=== PATIENT | female | born 1945 | race Caucasian/White ===

== ENCOUNTER → 2017-07-13 16:57 | Outpatient (CLI) | payer MEDICARE, SELFPAY ==
[2017-07-13 17:00] LABS: Bacteria 0 SEEN /hpf (None Seen); Mucous, Urine 0 SEEN /hpf (<or=2+); Squamous Epithelial Cells - UA 0 SEEN /hpf (5-10)
[2017-07-13 17:04] LABS: Color, Urine Yellow (Yellow); Glucose, Dipstick Normal (Normal); Ketone-Dipstick Negative (Negative); Leukocyte Esterase-Dipstick 100 /ul (Negative); Nitrite-Dipstick Negative (Negative); Occult Blood-Urine 150 /ul (Negative); Protein-Dipstick Negative (Negative); Urine Bilirubin Dipstick Negative (Negative); Urine Clarity Clear (Clear); Urine Urobilinogen Normal (Normal); Urine pH 6.5 (5.0 - 8.0)
[2017-07-13 17:15] LABS: Red Blood Cells-Urine 5-10 SEEN /hpf (0-5); White Blood Cells 0-5 SEEN /hpf (0-5)
== END ==
PROVIDERS: Visit Provider Nurse Practitioner Adult Health
DX: N39.8 Other specified disorders of urinary system (principal)
CPT/HCPCS: 81001

== ENCOUNTER 2017-09-28 14:46 | Emergency (ER) | payer MEDICARE, SELFPAY ==
[2017-09-28 14:47] VITALS: BP 108/94; PULSE 82; RESP 16; TEMP 36.6; O2SAT 95; BMI 37.2
[2017-09-28 15:00] VITALS: BP 115/78; PULSE 78; RESP 16; O2SAT 96
[2017-09-28 16:00] VITALS: BP 107/67; BP 110/53; PULSE 63; PULSE 81; RESP 16; RESP 18; O2SAT 98
[2017-09-28] MEDS: Morphine 4 MG/ML Syringe IV (16:01)
[2017-09-28] MEDS: 0.9% Normal Saline 1,000 ML 1000 ML IV (16:01)
--- NOTE | 2017-09-28 16:08 | ED.VISSUMM ---
- ER Visit Summary Date of Service: 09/28/17 Chief Complaint: Painful bedsores History of Present Illness: The patient is a 71 F who presents with pain over her decubitus ulcer area over her sacrum. This has been getting progressively worse. Patient has been taking oxycodone and ibuprofen with no improvement. Patient denies any fevers or chills. Patient states home health has been changing dressings on her ulcer. states that they have been packing the ulcer and covering it with dressings. Patient denies any nausea or vomiting. Patient states that the home health nurse today noted some drainage from the ulceration. Physical Examination: Vital signs are stable. Patient is afebrile. Patient is in no acute distress. Oral mucosa is pink but dry. Neck is supple. There is no JVD noted. Heart was regular rate and rhythm. Lungs are clear and equal bilaterally. There is good respiratory effort noted. Abdomen is soft. Bowel sounds are normal. There is no tenderness. Cranial nerves II through XII are intact. There are no focal motor or sensory deficits noted. The remaining physical exam is within normal limits. Test Results: CBC and metabolic profile were essentially within normal limits. Urinalysis does show evidence of urinary tract infection. Emergency Department Course and Treatment: Patient was given a dose of morphine here. Patient felt better on reevaluation and wants to go home. Patient was given a prescription for Bactrim. Patient was instructed to follow-up with her primary care physician in 5-7 days. Patient and her understood and were agreeable with the plan. All questions were answered. Disposition: Discharged home Impression: Urinary tract infection, decubitus ulcer This note was generated with [employer] dictation software. It may contain incorrect words, spelling, and punctuation that were not noted in review of the chart prior to signing ED Disposition - Plan for ED Patient: Disposition: Home or Assisted Living Chief Complaint: Other, Pain/Inj Diagnosis: UTI (urinary tract infection), Decubitus ulcer Instructions: ED Chronic Pain Management, ED UTI Cystitis Female Prescriptions: Smz/Tmp Ds [Bactrim Ds] 1 tab PO BID #14 tab Referrals: Care Physician,No Primary [Primary Care Provider] -
[2017-09-28 16:11] LABS: Absolute Lymphocyte Count 0.91 X10^3/ul (0.83-4.51); Basophil# 0.01 X10^3/uL; Basophil% 0.1 % (0-1); Eosinophil# 0.09 X10^3/uL; Eosinophils% 1.1 % (0-5); Hematocrit 32.1 % (37-47); Hemoglobin 9.7 g/dl (12.0-15.0); Lymphocyte # 0.91 X10^3/ul (4.0); Lymphocyte % 10.7 % (19-41); Mean Corp Hgb Conc 30.2 g/gl (32-36); Mean Corpuscular Hgb 29.1 pg (27.0-32.0); Mean Corpuscular Volume 96.4 fL (81-99); Mean Platelet Vol. 10.6 fl (6.2-12.0); Monocyte# 0.44 X10^3/uL; Monocyte% 5.2 % (0-10); Neutrophil # 7.03 X10^3/uL (2.7-7.7); Neutrophil % 82.8 % (47-70); Platelet Count 147 K/mm3 (150-450); RBC Distribution Width SD 49.2 fl (35.1-43.9); Red Blood Count 3.33 M/mm3 (4.2-5.4); White Blood Count 8.5 K/mm3 (4.4-11.0)
[2017-09-28 16:13] LABS: Mucous, Urine 0 SEEN /hpf (<or=2+)
[2017-09-28 16:15] LABS: POSITIVE COUNT NO; POSITIVE DIFFERENTIAL NO; POSITIVE MORPHOLOGY NO
[2017-09-28 16:15] LABS: Color, Urine Yellow (Yellow); Glucose, Dipstick Normal (Normal); Ketone-Dipstick Negative (Negative); Leukocyte Esterase-Dipstick 500 /ul (Negative); Nitrite-Dipstick Positive (Negative); Occult Blood-Urine 150 /ul (Negative); Protein-Dipstick 30 mg/dl (Negative); Urine Bilirubin Dipstick Negative (Negative); Urine Clarity Cloudy (Clear); Urine Urobilinogen Normal (Normal)
[2017-09-28 16:29] LABS: Red Blood Cells-Urine 0-5 SEEN /hpf (0-5); Squamous Epithelial Cells - UA 0-5 SEEN /hpf (5-10); White Blood Cells >100 SEEN /hpf (0-5)
[2017-09-28 16:30] LABS: Amorphous Sediment 1+; Bacteria 4+ /hpf (None Seen)
[2017-09-28 16:57] LABS: ALB/GLOB Ratio 0.3 RATIO (0.9-2.4); AST(SGOT) 15 U/L (15-37); Alanine Aminotransfer ALT/SGPT 14 U/L (13-56); Albumin, Serum 1.4 g/dL (3.2-5.0); Alkaline Phosphatase 108 U/L (45-117); Anion Gap 7 (5-15); BUN 28 mg/dL (7-18); BUN/Creat Ratio 19.2 RATIO (10-20); Calcium,Total 7.1 mg/dL (8.5-10.1); Chloride 104 mmol/L (98-107); Creatinine, Serum 1.46 mg/dL (0.55-1.02); EST Glomerular Filtration Rate 37 mL/min (>60); Est Glom Filt Rate - Afr Amer 45 mL/min (>60); Estimated Creatinine Clearance 27.55 ml/min; Globulin 4.5 g/dL (2.2-4.2); Glucose 142 mg/dL (74-106); Potassium 3.1 mmol/L (3.5-5.1); Protein, Total 5.9 g/dL (6.4-8.2); Sodium Level 144 mmol/L (136-145)
[2017-09-28] MEDS: Smz/Tmp Ds Tablet 1 TABLET PO (17:55)
[2017-09-28 18:00] VITALS: BP 103/53; PULSE 69; RESP 16; O2SAT 95
== END 2017-09-28 18:05 | disposition home or self-care (01) ==
PROVIDERS: Emergency Provider Emergency Medicine
DX: N39.0 Urinary tract infection, site not specified (principal); L89.159 Pressure ulcer of sacral region, unspecified stage; M79.7 Fibromyalgia; E11.9 Type 2 diabetes mellitus without complications
CPT/HCPCS: 80053; 81001; 85025; 87077; 87086; 87088; 87186; 99284; J7030; A4216

== ENCOUNTER 2017-10-04 13:12 | Inpatient (IN) | payer MEDICARE, SELFPAY ==
[2017-10-04] VITALS (8 sets, daily range): BP systolic 96–115; BP diastolic 43–100; PULSE 61–68; RESP 13–19; TEMP 36.5–36.6; O2SAT 95–98; BMI 35.9; BMI 33.8
--- NOTE | 2017-10-04 14:06 | NURSING ---
CBCD TOO SHORT. NEEDS REDRAWN
--- NOTE | 2017-10-04 14:28 | CM.ED ---
Addendum entered by June Oropeza 10/04/17 15:26: Social Work Note Return phone call from [place] with [facility]PS stating that they do have an open case as of today. Inquires about pt and spouse's demeanors/presentations. Made aware that SW on assigned unit will notify APS of disposition at discharge. VENTURA Wilson, HOSPICE CLINICAL SUPERVISOR Original Note: Social Work Note Update by nursing and physician that pt was recently in for a stage II wound last week that is now a stage IV. Pt to be admitted. Concerns with the pt's spouse's ability to care for pt at home. Pt has [facility] that has tried teachings with the spouse and he does not follow the suggestions and they do not feel that he can manage her care either. They report that APS is involved. Placed call to APS and left a vm with [place] to see where they are with the case. Will await a return phone call. Placed call to [facility] and spoke with pt's casey saw operator, Milton Dempsey [[phone]], who states that the pt has been approved for 40 hrs/week of aides, but they cannot staff it and she presently is only getting 12 hrs/week through [facility]. She also gets skilled services through [facility]. Also has an emergency response system, 10 meals/week through [employer], and incontinence products. Inform that the pt will be admitted and SW on assigned unit will update with discharge plans once confirmed. VENTURA Wilson, HOSPICE CLINICAL SUPERVISOR
--- NOTE | 2017-10-04 14:57 | ED.RN ---
pt states pt has not eaten for 23 hours. this rn asked . states well we have had people in and out. reminded that he is the one that knows wether she has or has not eaten. states i offered her food but she did not want anything.this rn questioned ,as to blood sugar, states i checked her sugar this am and it was 89. then states I went ahead and gave her her insulin but she did not eat. pt blood sugar check. result 40. dr cain
[2017-10-04 14:58] LABS: ALB/GLOB Ratio 0.3 RATIO (0.9-2.4); AST(SGOT) 20 U/L (15-37); Alanine Aminotransfer ALT/SGPT 15 U/L (13-56); Albumin, Serum 1.2 g/dL (3.2-5.0); Alkaline Phosphatase 119 U/L (45-117); Anion Gap 7 (5-15); BUN 29 mg/dL (7-18); BUN/Creat Ratio 18.4 RATIO (10-20); Calcium,Total 7.2 mg/dL (8.5-10.1); Chloride 110 mmol/L (98-107); Creatinine, Serum 1.58 mg/dL (0.55-1.02); EST Glomerular Filtration Rate 34 mL/min (>60); Est Glom Filt Rate - Afr Amer 41 mL/min (>60); Estimated Creatinine Clearance 27.79 ml/min; Globulin 4.7 g/dL (2.2-4.2); Glucose 42 mg/dL (74-106); Potassium 3.4 mmol/L (3.5-5.1); Protein, Total 5.9 g/dL (6.4-8.2); Sodium Level 143 mmol/L (136-145)
[2017-10-04 15:13] LABS: Absolute Lymphocyte Count 0.87 X10^3/ul (0.83-4.51); Absolute Neutrophil Count 6.5 X10^3/uL (2.0-7.7); Basophil# 0.02 X10^3/uL; Basophil% 0.2 % (0-1); Eosinophil# 0.13 X10^3/uL; Eosinophils% 1.6 % (0-5); Hematocrit 31.5 % (37-47); Hemoglobin 9.7 g/dl (12.0-15.0); Lymphocyte # 0.87 X10^3/ul (4.0); Lymphocyte % 10.8 % (19-41); Mean Corp Hgb Conc 30.8 g/gl (32-36); Mean Corpuscular Volume 97.5 fL (81-99); Mean Platelet Vol. 10.6 fl (6.2-12.0); Monocyte# 0.47 X10^3/uL; Monocyte% 5.8 % (0-10); Neutrophil # 6.53 X10^3/uL (2.7-7.7); Neutrophil % 81.2 % (47-70); POSITIVE COUNT NO; POSITIVE DIFFERENTIAL NO; POSITIVE MORPHOLOGY NO; Platelet Count 132 K/mm3 (150-450); RBC Distribution Width SD 47.4 fl (35.1-43.9); Red Blood Count 3.23 M/mm3 (4.2-5.4); White Blood Count 8.1 K/mm3 (4.4-11.0)
[2017-10-04] MEDS: Dextrose 10%-Water 250 ML 75 ML IV (15:36)
--- NOTE | 2017-10-04 15:45 | ED.VISSUMM ---
- ER Visit Summary Date of Service: 10/04/17 Chief Complaint: Failure to thrive History of Present Illness: The patient is a 71 F who presents from home by ambulance. She has not been able to ambulate for 1 year. The nurse practitioner who is responsible for primary care states there is no known etiology for her inability to walk. She has total Jeromy dependent on others for care. blames visiting nurse for failure to show in care for . Nurse practitioner called prior. has not followed medical recommendations. He has been giving her insulin spite of hypoglycemia. He has not been feeding her because he does not want to clean up her stool. While in the department he was verbally abusive towards his . She had a stage II lumbar/sacral decubitus that has now become a stage IV. She also has pressure sore with skin breakdown in the perianal/gluteal crease region. She really has no complaints. History of type 1 diabetes, hypertension, end-stage renal disease, frequent urinary tract infections, obesity, functional paralysis and pancytopenia. Physical Examination: Vital signs are unremarkable. She is not febrile nor she hypoxic. Head is atraumatic normal cephalic. Pupils equal round reactive. Extra muscle intact. Sclerae nonicteric. Conjunctive is normal. There is no subconjunctival hemorrhage. TMs normal. Mucosa slightly dry. Trachea midline. Lungs are clear auscultation. Heart is regular. Abdomen soft nontender. Grade 4 lumbar decubitus 3 x 5 cm. Pressure sore skin breakdown gluteal crease/perianal region. Patient moves her arms. Minimal movement of legs. She does have sensation. There is no clonus or Babinski sign noted. Test Results: CBC is unremarkable. CMP is remarkable for a total protein of 5.9 albumin of 1.2. Creatinine is 1.58. Glucose 42. Patient had recurrent hypoglycemia in spite of medication and feeding the patient. She was placed on a D10 drip at 75 cc/h. Urinalysis is pending. Emergency Department Course and Treatment: Case management was consulted. I was informed by his nurse practitioner that Adult Protective Services been involved. When was told Adult Protective Services were involved he responded I was ass holes . Treatment Plan: We will contact hospitalist for admission, case management involvement and placement since she is not able to care for self and is not able to care for her. Her laboratory studies indicate significant malnourishment Disposition: Medical surge admission Impression: 1. Failure to thrive 2. Severe malnourishment 3. Grade 4 lumbar decubitus 4. Recurrent intractable hypoglycemia 5. History of hypertension 6. End-stage renal disease This note was generated with [employer] dictation software. It may contain incorrect words, spelling, and punctuation that were not noted in review of the chart prior to signing ED Disposition - Plan for ED Patient: Chief Complaint: Wound Referrals: Anyi Zamora, SQL DEVELOPER-C [Primary Care Provider] -
[2017-10-04 16:04] LABS: Mucous, Urine 0 SEEN /hpf (<or=2+)
[2017-10-04 16:06] LABS: Color, Urine Yellow (Yellow); Glucose, Dipstick Normal (Normal); Ketone-Dipstick Negative (Negative); Leukocyte Esterase-Dipstick 500 /ul (Negative); Nitrite-Dipstick Positive (Negative); Occult Blood-Urine 150 /ul (Negative); Protein-Dipstick 30 mg/dl (Negative); Specific Gravity, Urine 1.015 (1.002-1.030); Urine Bilirubin Dipstick Negative (Negative); Urine Clarity Sl. Cloudy (Clear); Urine Urobilinogen Normal (Normal)
[2017-10-04 16:21] LABS: Bacteria 1+ /hpf (None Seen); Red Blood Cells-Urine 10-25 SEEN /hpf (0-5); Squamous Epithelial Cells - UA 5-10 SEEN /hpf (5-10); White Blood Cells >100 SEEN /hpf (0-5)
--- NOTE | 2017-10-04 16:27 | NURSING ---
Maya FLOWER INTRACTABLE HYPOGLYCEMIA, FAILURE TO THRIVE, SEVERE MALNOURISHMENT
[2017-10-04 17:06] LABS: Bedside Glucose 129 mg/dL (70-110)
[2017-10-04 17:06] LABS: Bedside Glucose 40 mg/dL (70-110)
[2017-10-04 17:06] LABS: Bedside Glucose 57 mg/dL (70-110)
--- NOTE | 2017-10-04 17:15 | PCM.HP.STD ---
Problem List (1) Hypoglycemia Status: Acute (2) Decubitus ulcer Status: Acute Qualifiers: Pressure injury location: contiguous region involving back and buttock Pressure injury stage: stage 4 Laterality: unspecified laterality Qualified Code(s): L89.44 - Pressure ulcer of contiguous site of back, buttock and hip, stage 4 (3) UTI (urinary tract infection) Status: Acute Qualifiers: Urinary tract infection type: acute cystitis Hematuria presence: without hematuria Qualified Code(s): N30.00 - Acute cystitis without hematuria (4) Debility Status: Acute History of Present Illness Date of Admission: 10/04/17 Chief Complaint: decubitus ulcer The patient is a 71 year old F with a decubitus ulcer. Patient's history is obtained primarily through her as well as session. Patient's states that she has had a pressure ulcer on her backside for some time and just recently had gotten worse. He decided to bring the patient into the emergency room. In the emergency room, patient was noted to be hypoglycemic with a blood sugar on her BMP of 48. Patient was started on a D10 drip. Subsequent blood sugars did improve into the 130s. Patient's states that she would have hypoglycemic episodes at home with her blood sugar being into the 50s but he would still give her her Lantus but only after he gave her juice. He states the patient has not been eating much. Patient was recently diagnosed with a urinary tract faction and treated with Bactrim. [] Past Medical History Past Medical History (Chronic Problems): Chronic Problems Dysphagia (Chronic) CKD (chronic kidney disease), stage III (Chronic) DM type 2 (diabetes mellitus, type 2) (Chronic) Gout (Chronic) Morbid obesity (Chronic) Psoriasis (Chronic) Rosacea (Chronic) CAD (coronary artery disease) (Chronic) Fibromyalgia (Chronic) Spastic paraparesis (Chronic) Skin excoriation (Chronic) secondary to fungal skin infection UTI (urinary tract infection) (Chronic) Candidal intertrigo (Chronic) Decubitus ulcer (Chronic) Allergies cephalexin [From Keflex] Allergy (Verified 10/04/17 13:13) Rash Penicillins Allergy (Verified 10/04/17 13:13) Rash Home Medications: Ambulatory Orders Medication Instructions Recorded Levothyroxine [Synthroid] 88 mcg PO DAILY 01/21/16 Hydrocodone/Acetaminophen 1 tab PO Q8H PRN PRN 11/22/16 [Hydrocodone-Acetamin 7.5-325] Nystatin Powder [Mycostatin Powder] 1 applic TOPICAL .COMPLEX 11/22/16 traZODone [Desyrel] 100 mg PO QHS PRN 11/22/16 Amino Acids/Protein Hydrolys 30 ml PO BID 09/28/17 [Pro-Stat Max Liquid] Aspirin [Aspirin EC] 81 mg PO DAILY 09/28/17 Atorvastatin Calcium 10 mg PO QHS 09/28/17 Citalopram Hydrobromide 40 mg PO DAILY 09/28/17 [Citalopram HBr] DiphenhydrAMINE [Benadryl] 25 mg PO Q6H PRN PRN 09/28/17 Diphenoxylate HCl/Atropine 2 tab PO Q6H PRN PRN 09/28/17 [Lomotil 2.5-0.025 mg Tablet] Ergocalciferol [Vitamin D] 50,000 unit PO MO 09/28/17 Furosemide [Lasix] 40 mg PO DAILY 09/28/17 Gabapentin [Neurontin] 300 mg PO BIDCM 09/28/17 Ibuprofen 800 mg PO PRN PRN 09/28/17 Insulin Glargine [Lantus SoloStar 28 units SQ DAILY 09/28/17 Pen] Menthol/Lanolin/Calamine/Znox 1 applic TOPICAL .COMPLEX 09/28/17 [Calmoseptine Ointment] Multivitamins,Therapeutic 1 tablet PO DAILY 09/28/17 [Multivitamin] Smz/Tmp Ds [Bactrim Ds] 1 tab PO BID #14 tab 09/28/17 Zinc Sulfate (50mg elemental) 220 mg PO DAILY 09/28/17 [Zinc Sulfate] Surgical History: cholecystectomy, hysterectomy Smoking Status: Former smoker - *Family History Maternal History Items: Unknown - Unable to obtain as the patient is a very poor historian. Paternal History Items: No pertinent history Review of Systems Constitutional: Reports: Anorexia. Denies: Chills, Fever Eyes: Denies: Blurred vision, Double vision HEENT: Denies: Difficulty Hearing Cardiovascular: Denies: Chest Pain, Chest Tightness Respiratory: Denies: Cough Gastrointestinal: Denies: Abdominal Pain, Nausea, Vomiting Genitourinary: Denies: Dysuria, Hematuria Musculoskeletal: Reports: Back Pain Neurological: Reports: - - Bedbound. Functional paraplegic. Psychiatric: Denies: Anxiety, Depression Hematologic/ Lymphatic: Reports: Easy Bleeding Comment: Limited review of systems given the fact the patient is a very poor historian and much of the review of systems obtained to the patient's at bedside. VTE Information - Inpt Only VTE Present on Admission: No VTE Pharm Prophylaxis ordered?: Yes Patient Problems: Active and Suspected Problems Hypoglycemia (Acute) Decubitus ulcer (Acute) UTI (urinary tract infection) (Acute) Debility (Acute) - Physical Exam General: Alert, No apparent distress, - - Oriented ?2 HEENT: Atraumatic, Normocephalic Oral: Moist Mucosa, No Gingival or Mucosal Lesions/ Ulcerations Neck: No Nodes, Thyroid Normal Size and Texture Lungs: Clear to auscultation, No rhonchi, No wheeze, Diminished Cardiovascular: Regular rate, Regular Rhythm, Normal S1, Normal S2, No murmurs Abdomen: Bowel Sounds Present, Soft, Non Tender, Non-Distended, No Hepato-splenomegaly Extremities: No edema, No Calf Tenderness Skin: - - Stage III-IV sacral decubitus ulcer. Proximally 5 cm in diameter. No purulence was noted. Musculoskeletal: Cachexia, Muscle Wasting, - - Plantar contractions of the lower extremities Neurological: Sensory exam intact to light touch and pain, - - No clonus Psych/Mental Status: Anxious, Flat Affect Vital Signs Pulse Resp BP Pulse Ox 65 19 H 115/100 H 97 10/04/17 16:38 10/04/17 16:38 10/04/17 16:38 10/04/17 16:38 Assessment/Plan All Active Problems Hypoglycemia (Acute) Decubitus ulcer (Acute) UTI (urinary tract infection) (Acute) Debility (Acute) Hypoglycemia (Acute) Acute on Recurrent UTI (Acute) Chest pain (Resolved) Neutropenic fever (Resolved) Generalized weakness (Acute) Hypotension (Resolved) Pancytopenia (Resolved) 1. Hypoglycemia Secondary to getting insulin despite his poor oral intake I have requested the D10 being stopped and we will continue to monitor Hold off on the Lantus for now 2. Stage III-IV decubitus ulcer, sacrum Wound care consultation Likely due to poor care at home 3. UTI Catheter associated diagnosed on 09/28 Positive Citrobacter as well as Klebsiella pneumoniae Was on Bactrim but the organisms are resistant to that Will change to ceftriaxone 4. Debility Patient is a functional paraplegic and essentially bedbound Physical and occupational therapy evaluate and treat Apparently there is concern about the patient's care at home and Adult Protective Services has been informed through the emergency room. 5. Candidiasis/intertrigo Nystatin 6. Diabetes mellitus type 2 We will check micro-blood sugars but hold off on any insulin at this point time given the patient's hypoglycemia 7. DVT prophylaxis with Lovenox Advanced care planning: Spent additional 15 minutes discussing with the patient's about advanced care planning. Explained to him that the patient's long-term prognosis is poor given her medical comorbidities. I did recommend that he speak with hospice. States that the patient is not hospice appropriate this time but if she were to get an acute illness that could certainly cause her to decline very quickly. He was in agreement to discussing with hospice. Code Visit Inpatient E&M: 07719 Init Hosp L3 Procedures: 53966 Advncd Care Plan 30 Min
--- NOTE | 2017-10-04 17:19 | HP.PCM_ITS ---
Problem List (1) Hypoglycemia Status: Acute (2) Decubitus ulcer Status: Acute Qualifiers: Pressure injury location: contiguous region involving back and buttock Pressure injury stage: stage 4 Laterality: unspecified laterality Qualified Code(s): L89.44 - Pressure ulcer of contiguous site of back, buttock and hip, stage 4 (3) UTI (urinary tract infection) Status: Acute Qualifiers: Urinary tract infection type: acute cystitis Hematuria presence: without hematuria Qualified Code(s): N30.00 - Acute cystitis without hematuria (4) Debility Status: Acute History of Present Illness Date of Admission: 10/04/17 Chief Complaint: decubitus ulcer The patient is a 71 year old F with a decubitus ulcer. Patient's history is obtained primarily through her as well as session. Patient's states that she has had a pressure ulcer on her backside for some time and just recently had gotten worse. He decided to bring the patient into the emergency room. In the emergency room, patient was noted to be hypoglycemic with a blood sugar on her BMP of 48. Patient was started on a D10 drip. Subsequent blood sugars did improve into the 130s. Patient's states that she would have hypoglycemic episodes at home with her blood sugar being into the 50s but he would still give her her Lantus but only after he gave her juice. He states the patient has not been eating much. Patient was recently diagnosed with a urinary tract faction and treated with Bactrim. [] Past Medical History Past Medical History (Chronic Problems): Chronic Problems Dysphagia (Chronic) CKD (chronic kidney disease), stage III (Chronic) DM type 2 (diabetes mellitus, type 2) (Chronic) Gout (Chronic) Morbid obesity (Chronic) Psoriasis (Chronic) Rosacea (Chronic) CAD (coronary artery disease) (Chronic) Fibromyalgia (Chronic) Spastic paraparesis (Chronic) Skin excoriation (Chronic) secondary to fungal skin infection UTI (urinary tract infection) (Chronic) Candidal intertrigo (Chronic) Decubitus ulcer (Chronic) Allergies cephalexin [From Keflex] Allergy (Verified 10/04/17 13:13) Rash Penicillins Allergy (Verified 10/04/17 13:13) Rash Home Medications: Ambulatory Orders Medication Instructions Recorded Levothyroxine [Synthroid] 88 mcg PO DAILY 01/21/16 Hydrocodone/Acetaminophen 1 tab PO Q8H PRN PRN 11/22/16 [Hydrocodone-Acetamin 7.5-325] Nystatin Powder [Mycostatin Powder] 1 applic TOPICAL .COMPLEX 11/22/16 traZODone [Desyrel] 100 mg PO QHS PRN 11/22/16 Amino Acids/Protein Hydrolys 30 ml PO BID 09/28/17 [Pro-Stat Max Liquid] Aspirin [Aspirin EC] 81 mg PO DAILY 09/28/17 Atorvastatin Calcium 10 mg PO QHS 09/28/17 Citalopram Hydrobromide 40 mg PO DAILY 09/28/17 [Citalopram HBr] DiphenhydrAMINE [Benadryl] 25 mg PO Q6H PRN PRN 09/28/17 Diphenoxylate HCl/Atropine 2 tab PO Q6H PRN PRN 09/28/17 [Lomotil 2.5-0.025 mg Tablet] Ergocalciferol [Vitamin D] 50,000 unit PO MO 09/28/17 Furosemide [Lasix] 40 mg PO DAILY 09/28/17 Gabapentin [Neurontin] 300 mg PO BIDCM 09/28/17 Ibuprofen 800 mg PO PRN PRN 09/28/17 Insulin Glargine [Lantus SoloStar 28 units SQ DAILY 09/28/17 Pen] Menthol/Lanolin/Calamine/Znox 1 applic TOPICAL .COMPLEX 09/28/17 [Calmoseptine Ointment] Multivitamins,Therapeutic 1 tablet PO DAILY 09/28/17 [Multivitamin] Smz/Tmp Ds [Bactrim Ds] 1 tab PO BID #14 tab 09/28/17 Zinc Sulfate (50mg elemental) 220 mg PO DAILY 09/28/17 [Zinc Sulfate] Surgical History: cholecystectomy, hysterectomy Smoking Status: Former smoker - *Family History Maternal History Items: Unknown - Unable to obtain as the patient is a very poor historian. Paternal History Items: No pertinent history Review of Systems Constitutional: Reports: Anorexia. Denies: Chills, Fever Eyes: Denies: Blurred vision, Double vision HEENT: Denies: Difficulty Hearing Cardiovascular: Denies: Chest Pain, Chest Tightness Respiratory: Denies: Cough Gastrointestinal: Denies: Abdominal Pain, Nausea, Vomiting Genitourinary: Denies: Dysuria, Hematuria Musculoskeletal: Reports: Back Pain Neurological: Reports: - - Bedbound. Functional paraplegic. Psychiatric: Denies: Anxiety, Depression Hematologic/ Lymphatic: Reports: Easy Bleeding Comment: Limited review of systems given the fact the patient is a very poor historian and much of the review of systems obtained to the patient's at bedside. VTE Information - Inpt Only VTE Present on Admission: No VTE Pharm Prophylaxis ordered?: Yes Patient Problems: Active and Suspected Problems Hypoglycemia (Acute) Decubitus ulcer (Acute) UTI (urinary tract infection) (Acute) Debility (Acute) - Physical Exam General: Alert, No apparent distress, - - Oriented ?2 HEENT: Atraumatic, Normocephalic Oral: Moist Mucosa, No Gingival or Mucosal Lesions/ Ulcerations Neck: No Nodes, Thyroid Normal Size and Texture Lungs: Clear to auscultation, No rhonchi, No wheeze, Diminished Cardiovascular: Regular rate, Regular Rhythm, Normal S1, Normal S2, No murmurs Abdomen: Bowel Sounds Present, Soft, Non Tender, Non-Distended, No Hepato- splenomegaly Extremities: No edema, No Calf Tenderness Skin: - - Stage III-IV sacral decubitus ulcer. Proximally 5 cm in diameter. No purulence was noted. Musculoskeletal: Cachexia, Muscle Wasting, - - Plantar contractions of the lower extremities Neurological: Sensory exam intact to light touch and pain, - - No clonus Psych/Mental Status: Anxious, Flat Affect Vital Signs Pulse Resp BP Pulse Ox 65 19 H 115/100 H 97 10/04/17 16:38 10/04/17 16:38 10/04/17 16:38 10/04/17 16:38 Assessment/Plan All Active Problems Hypoglycemia (Acute) Decubitus ulcer (Acute) UTI (urinary tract infection) (Acute) Debility (Acute) Hypoglycemia (Acute) Acute on Recurrent UTI (Acute) Chest pain (Resolved) Neutropenic fever (Resolved) Generalized weakness (Acute) Hypotension (Resolved) Pancytopenia (Resolved) 1. Hypoglycemia * Secondary to getting insulin despite his poor oral intake * I have requested the D10 being stopped and we will continue to monitor * Hold off on the Lantus for now 2. Stage III-IV decubitus ulcer, sacrum * Wound care consultation * Likely due to poor care at home 3. UTI * Catheter associated * diagnosed on 09/28 * Positive Citrobacter as well as Klebsiella pneumoniae * Was on Bactrim but the organisms are resistant to that * Will change to ceftriaxone 4. Debility * Patient is a functional paraplegic and essentially bedbound * Physical and occupational therapy evaluate and treat * Apparently there is concern about the patient's care at home and Adult Protective Services has been informed through the emergency room. 5. Candidiasis/intertrigo * Nystatin 6. Diabetes mellitus type 2 * We will check micro-blood sugars but hold off on any insulin at this point time given the patient's hypoglycemia 7. DVT prophylaxis with Lovenox Advanced care planning: Spent additional 15 minutes discussing with the patient' s about advanced care planning. Explained to him that the patient's long-term prognosis is poor given her medical comorbidities. I did recommend that he speak with hospice. States that the patient is not hospice appropriate this time but if she were to get an acute illness that could certainly cause her to decline very quickly. He was in agreement to discussing with hospice. Code Visit Inpatient E&M: 49197 Init Hosp L3 Procedures: 56240 Advncd Care Plan 30 Min
[2017-10-04 17:36] LABS: Bedside Glucose 147 mg/dL (70-110)
[2017-10-04] MEDS: 0.9% Normal Saline 1,000 ML 100 ML IV (18:31)
[2017-10-04] MEDS: Acetaminophen 325 MG Tablet 650 MG PO (18:46)
[2017-10-04] MEDS: traZODone 100 MG Tablet PO (22:18)
[2017-10-04] MEDS: Atorvastatin Calcium 10 MG Tablet PO (22:18)
[2017-10-04 22:26] LABS: Bedside Glucose 142 mg/dL (70-110)
[2017-10-05] VITALS (10 sets, daily range): BP systolic 95–117; BP diastolic 28–52; PULSE 63–88; RESP 16; TEMP 36.6–36.8; O2SAT 93–97
[2017-10-05] MEDS: Acetaminophen 325 MG Tablet 650 MG PO ×4 (00:42→21:52)
[2017-10-05] MEDS: Levothyroxine 88 MCG Tablet PO (05:06)
[2017-10-05] MEDS: HYDROcodone Bitartrate/Apap 5/325 Tablet PO ×3 (05:06→18:12)
[2017-10-05 05:59] LABS: Absolute Lymphocyte Count 0.63 X10^3/ul (0.83-4.51); Absolute Neutrophil Count 4.4 X10^3/uL (2.0-7.7); Eosinophil# 0.15 X10^3/uL; Eosinophils% 2.7 % (0-5); Hematocrit 27.3 % (37-47); Hemoglobin 8.3 g/dl (12.0-15.0); Lymphocyte # 0.63 X10^3/ul (4.0); Lymphocyte % 11.4 % (19-41); Mean Corp Hgb Conc 30.4 g/gl (32-36); Mean Corpuscular Hgb 28.7 pg (27.0-32.0); Mean Corpuscular Volume 94.5 fL (81-99); Mean Platelet Vol. 10.9 fl (6.2-12.0); Monocyte# 0.41 X10^3/uL; Monocyte% 7.4 % (0-10); Neutrophil # 4.36 X10^3/uL (2.7-7.7); Neutrophil % 78.5 % (47-70); Platelet Count 133 K/mm3 (150-450); RBC Distribution Width CV 14.1 % (11.6-14.6); RBC Distribution Width SD 48.4 fl (35.1-43.9); Red Blood Count 2.89 M/mm3 (4.2-5.4); White Blood Count 5.6 K/mm3 (4.4-11.0)
[2017-10-05 06:02] LABS: POSITIVE COUNT NO; POSITIVE DIFFERENTIAL NO; POSITIVE MORPHOLOGY NO
[2017-10-05 06:25] LABS: ALB/GLOB Ratio 0.2 RATIO (0.9-2.4); AST(SGOT) 21 U/L (15-37); Alanine Aminotransfer ALT/SGPT 19 U/L (13-56); Albumin, Serum 0.9 g/dL (3.2-5.0); Alkaline Phosphatase 110 U/L (45-117); Anion Gap 11 (5-15); BUN 30 mg/dL (7-18); BUN/Creat Ratio 19.7 RATIO (10-20); Calcium,Total 7.1 mg/dL (8.5-10.1); Chloride 111 mmol/L (98-107); Creatinine, Serum 1.52 mg/dL (0.55-1.02); EST Glomerular Filtration Rate 36 mL/min (>60); Est Glom Filt Rate - Afr Amer 43 mL/min (>60); Globulin 4.3 g/dL (2.2-4.2); Glucose 41 mg/dL (74-106); Potassium 3.5 mmol/L (3.5-5.1); Protein, Total 5.2 g/dL (6.4-8.2); Sodium Level 142 mmol/L (136-145)
[2017-10-05 07:01] LABS: Bedside Glucose 109 mg/dL (70-110)
--- NOTE | 2017-10-05 08:49 | NURSING ---
Patient informed this RN that in June 2016 she broke her ankle and did not recieve therapy to get her back up and walking and has been debilitated ever since.
[2017-10-05] MEDS: Multivitamins,Therapeutic Tablet 1 TABLET PO (08:58)
[2017-10-05] MEDS: Aspirin E.C. 81 MG Tablet PO (08:58)
[2017-10-05] MEDS: Citalopram 40 MG TABLET PO (08:58)
[2017-10-05] MEDS: Enoxaparin 30 MG/0.3 ML Syringe SC (08:59)
[2017-10-05] MEDS: Menthol/Lanolin/Calamine/Znox 113 GM Tube 1 APPLIC TOPICAL (08:59)
[2017-10-05] MEDS: Nystatin Powder 15gm Bottle 1 APPLIC TOPICAL (08:59)
[2017-10-05 12:01] LABS: Bedside Glucose 153 mg/dL (70-110)
--- NOTE | 2017-10-05 12:36 | NURSING ---
wound photo: sacrum
--- NOTE | 2017-10-05 12:40 | CASEMGMT ---
SW spoke with Nurse Practitioner, Ani who spoke with patient. Patient is agreeing to go to SNF and she wants [facility]. She also said patient agreed to talk with Hospice. SW spoke with patient and confirmed she wants to go to [facility], but she did not remember conversation about Hospice. SW will allow the physician to talk with patient and her about this to make sure they are on board before consulting Hospice. OREN called [facility] with referral as well as faxed over information. Plan: Possibly [facility] pending their acceptance and insurance approval Ashley ARANDA MSW
--- NOTE | 2017-10-05 14:16 | CASEMGMT ---
Physician spoke with patient and her about Palliative/Hospice care. They agreed to talk with them. Physician also said they are in agreement with SNF. SW made a referral to Palliative/Hospice as well as [facility]. Ashley ARANDA MSW
--- NOTE | 2017-10-05 14:39 | PCM.PROGNOTE ---
<June Duffy - Last Filed: 10/05/17 14:50> Patient Problems: Active and Suspected Problems Hypoglycemia (Acute) Decubitus ulcer (Acute) UTI (urinary tract infection) (Acute) Debility (Acute) Subjective: Patient seen and examined. Resting comfortably in bed. Denies current complaints. Agreeable to SNF and palliative/hospice consult. - Physical Exam General: Alert, Oriented x3, Cooperative, No apparent distress HEENT: Atraumatic, PERRLA, EOMI, Normocephalic Oral: Dry Mucosa Neck: Supple, No JVD, Negative Carotid Bruits Lungs: Clear to auscultation, Diminished Cardiovascular: Regular rate, Regular Rhythm, Normal S1, Normal S2, No murmurs Abdomen: Bowel Sounds Present, Soft, Non Tender, Non-Distended, Obese Extremities: No edema, Capillary Refill Less than 3 Seconds, No Calf Tenderness Skin: - - Stage III-IV sacral decubitus ulcer. Musculoskeletal: No Tenderness to Palpation of Joints or Extremities, Cachexia, Muscle Wasting Neurological: Cranial nerves II-XII grossly intact, Neuro grossly intact Psych/Mental Status: Normal Affect, Appropriate Vital Signs Temp Pulse Resp BP Pulse Ox 97.9 F 82 16 117/28 L 94 10/05/17 08:57 10/05/17 11:21 10/05/17 08:57 10/05/17 08:57 10/05/17 08:57 Oxygen Delivery Method Room Air Weight: 203 lb 4.259 oz Body Mass Index (BMI) 33.8 Intake and Output for Last 24 Hours 10/03/17 10/04/17 10/05/17 23:59 23:59 23:59 Intake Total 493 / 493 1002 / 1002 Output Total 600 / 600 175 / 175 Balance -107 / -107 827 / 827 Laboratory Tests Past 24 Hrs 10/05/17 10/05/17 05:08 05:08 WBC 5.6 RBC 2.89 L Hgb 8.3 L Hct 27.3 L MCV 94.5 MCH 28.7 MCHC 30.4 L RDW 14.1 RDW Differential 48.4 H Plt Count 133 L MPV 10.9 Immature Gran % (Auto) 0.000 Neut % (Auto) 78.5 H Lymph % (Auto) 11.4 L Dodge % (Auto) 7.4 Eos % (Auto) 2.7 Baso % (Auto) 0.0 Absolute Neuts (auto) 4.4 Absolute Lymphs (auto) 0.63 L Total Counted Not Reportable Sodium 142 Potassium 3.5 Chloride 111 H Carbon Dioxide 20.0 L Anion Gap 11 BUN 30 H Creatinine 1.52 H Estim Creat Clear Calc 30.10 Est GFR (MDRD) Af Amer 43 L Est GFR (MDRD) Non-Af 36 L BUN/Creatinine Ratio 19.7 Glucose 41 L* Calcium 7.1 L Total Bilirubin 0.10 L AST 21 ALT 19 Alkaline Phosphatase 110 Total Protein 5.2 L Albumin 0.9 L Globulin 4.3 H Albumin/Globulin Ratio 0.2 L POC Glucose 10/05/17 10/05/17 10/04/17 11:40 06:57 22:09 POC Glucose 153 H 109 142 H 10/04/17 16:55 POC Glucose 147 H Medical Necessity - Tobacco Use Smoking Status: Former smoker Tobacco Use: Cigarettes Assessment/Plan All Active Problems Hypoglycemia (Acute) Decubitus ulcer (Acute) UTI (urinary tract infection) (Acute) Debility (Acute) Hypoglycemia (Acute) Acute on Recurrent UTI (Acute) Chest pain (Resolved) Neutropenic fever (Resolved) Generalized weakness (Acute) Hypotension (Resolved) Pancytopenia (Resolved) 1. Hypoglycemia secondary to steroid administration at home with type 2 diabetes mellitus-hypoglycemia improved. Continue Accu-Cheks before meals at bedtime. Begin sliding scale insulin. Continue to hold home Lantus regimen. 2. Chronic stage III-IV decubitus ulcer of the sacrum, present on admission-frequent position changing. Consult wound RN. Wound culture pending. SNF at discharge for further care. Wound RN notes patient will need 3 times daily dressing changes. Patient's reports they have only been changing her dressing 3 times per week. 3. Acute Citrobacter and Klebsiella UTI, catheter associated-culture from 09/28/2017. Treated as outpatient with Bactrim which is resistant. Continue IV meropenem. 4. Physical debility-poor care at home. Patient is essentially bedbound. PT/OT. Case management involved for SNF placement. Patient and agreeable to SNF at discharge with palliative/hospice consult. 5. Intertrigo-nystatin. 6. Hyperlipidemia-continue statin. 7. Morbid obesity-encourage diet and lifestyle modifications. 8. Chronic kidney disease stage III-stable. 9. Chronic normocytic anemia-stable. DVT prophylaxis-Lovenox subcu. This patient was seen by MARILEE Pastrana under the supervision of Dr. Sousa. <Santos Sousa F - Last Filed: 10/05/17 15:59> - Physical Exam Vital Signs Temp Pulse Resp BP Pulse Ox 98.2 F 73 16 100/32 L 93 10/05/17 15:00 10/05/17 15:00 10/05/17 15:00 10/05/17 15:00 10/05/17 15:00 Oxygen Delivery Method Room Air Weight: 203 lb 4.259 oz Body Mass Index (BMI) 33.8 Intake and Output for Last 24 Hours 10/03/17 10/04/17 10/05/17 23:59 23:59 23:59 Intake Total 493 / 493 1002 / 1002 Output Total 600 / 600 175 / 175 Balance -107 / -107 827 / 827 Laboratory Tests Past 24 Hrs 10/05/17 10/05/17 05:08 05:08 WBC 5.6 RBC 2.89 L Hgb 8.3 L Hct 27.3 L MCV 94.5 MCH 28.7 MCHC 30.4 L RDW 14.1 RDW Differential 48.4 H Plt Count 133 L MPV 10.9 Immature Gran % (Auto) 0.000 Neut % (Auto) 78.5 H Lymph % (Auto) 11.4 L Dodge % (Auto) 7.4 Eos % (Auto) 2.7 Baso % (Auto) 0.0 Absolute Neuts (auto) 4.4 Absolute Lymphs (auto) 0.63 L Total Counted Not Reportable Sodium 142 Potassium 3.5 Chloride 111 H Carbon Dioxide 20.0 L Anion Gap 11 BUN 30 H Creatinine 1.52 H Estim Creat Clear Calc 30.10 Est GFR (MDRD) Af Amer 43 L Est GFR (MDRD) Non-Af 36 L BUN/Creatinine Ratio 19.7 Glucose 41 L* Calcium 7.1 L Total Bilirubin 0.10 L AST 21 ALT 19 Alkaline Phosphatase 110 Total Protein 5.2 L Albumin 0.9 L Globulin 4.3 H Albumin/Globulin Ratio 0.2 L POC Glucose 10/05/17 10/05/17 10/04/17 11:40 06:57 22:09 POC Glucose 153 H 109 142 H 10/04/17 16:55 POC Glucose 147 H Assessment/Plan Addendum: Dr. Sousa I personally examined the patient and reviewed the chart. I agree with the above. Given the multitude of medical problems, she will need SNF placement at the very least for IV rocephin for her Citrobacter and K. pneumonia UTI. Discussed with the that hospice may be beneficial which he has agreed to at least discuss his options with them. Code Visit Inpatient E&M: 35091 Subs Hosp L2
--- NOTE | 2017-10-05 15:04 | CASEMGMT ---
Addendum entered by Ashley Black 10/05/17 15:10: OREN called Evelia at [facility] and let her know this information. Ashley ARANDA EPIC APPLICATION COORDINATOR Original Note: OREN spoke with patient and her and they want [facility]. OREN called [facility] with referral and then faxed over referral. Ashley ARANDA MSW
--- NOTE | 2017-10-05 16:12 | CASEMGMT ---
OREN spoke with Sheridan at [facility] and they can take patient. She will start the pre-cert. Plan: d/c to [facility] under skilled level of care. Ashley ARANDA MSW
--- NOTE | 2017-10-05 16:38 | CHAPLAIN ---
Type of Pastoral Visit _x__ Initial Visit ___ Follow-up Visit ___ On-call Visit ___ General Patient Visit ___ Spiritual Assessment ___ Family Conference ___ Bereavement ___ Rapid Response ___ Code Blue ___ Other (describe below) Pastoral Care Referral From _x__ Patient ___ Family ___ Nurse ___ Physician ___ Foreign Exchange Dealer ___ Lode Miner Blasting ___ Other (describe below) Sacrament/Intervention _x__ Active listening ___ Anointing ___ Mosque ___ Bereavement ___ Communion ___ Christina exploration ___ ___ Life review _x__ Prayer ___ Reconciliation ___ Sacrament of Sick _x__ Supportive presence ___ Wedding ___ Other (describe below) Pastoral Comments patient was in bed being fed her lunch by a friend who also identifies as a home health aide by profession; spouse is at bedside; introduction of self and services for spiritual care; pt states that she is not well and just wants hospice; at this comment spouse vigorously shakes his head and begins into speech about what the patient really needs; the friend also is verbal about her thoughts for patient; spouse indicates that pt has dementia; patient asks how long can I live in hospice?; handling tech suggests that patient and spouse discuss options with SW and medical staff and get answers/options including palliative care; at documentation found SW notes from ED and the questions about care have been raised; pt identifies as Lutheran and each person in room speaks highly of Father Tomas; Father Tomas of [place] could be another resource person for intervention is so needed; patient welcomed prayer for direction
[2017-10-05 16:41] LABS: Bedside Glucose 113 mg/dL (70-110)
[2017-10-05] MEDS: Glucerna Shake 120 ML LIQUID PO (21:52)
[2017-10-05] MEDS: Atorvastatin Calcium 10 MG Tablet PO (21:53)
[2017-10-05 21:56] LABS: Bedside Glucose 118 mg/dL (70-110)
[2017-10-06] VITALS (7 sets, daily range): BP systolic 98–106; BP diastolic 38–50; PULSE 55–84; RESP 16–18; TEMP 36.2–36.7; O2SAT 95–98
[2017-10-06] MEDS: HYDROcodone Bitartrate/Apap 5/325 Tablet PO ×3 (03:21→16:00)
[2017-10-06 05:23] LABS: M R Staph aureus DNA By PCR Negative (Negative); Probe Check PASS; Specimen Processing Control PASS; Staph aureus DNA By PCR NEGATIVE (Negative)
[2017-10-06] MEDS: Levothyroxine 88 MCG Tablet PO (05:32)
[2017-10-06 06:51] LABS: Bedside Glucose 116 mg/dL (70-110)
[2017-10-06 07:33] LABS: Hematocrit 26.9 % (37-47); Hemoglobin 8.1 g/dl (12.0-15.0); Mean Corp Hgb Conc 30.1 g/gl (32-36); Mean Corpuscular Hgb 28.3 pg (27.0-32.0); Mean Corpuscular Volume 94.1 fL (81-99); Platelet Count 140 K/mm3 (150-450); RBC Distribution Width CV 14.3 % (11.6-14.6); RBC Distribution Width SD 49.3 fl (35.1-43.9); Red Blood Count 2.86 M/mm3 (4.2-5.4); White Blood Count 4.4 K/mm3 (4.4-11.0)
[2017-10-06 07:36] LABS: Scan Indicated on CBC? Y/N NO
[2017-10-06 07:50] LABS: Anion Gap 11 (5-15); BUN 28 mg/dL (7-18); BUN/Creat Ratio 17.5 RATIO (10-20); Calcium,Total 7.1 mg/dL (8.5-10.1); Chloride 110 mmol/L (98-107); EST Glomerular Filtration Rate 34 mL/min (>60); Est Glom Filt Rate - Afr Amer 41 mL/min (>60); Glucose 112 mg/dL (74-106); Potassium 3.9 mmol/L (3.5-5.1); Sodium Level 143 mmol/L (136-145)
[2017-10-06] MEDS: Acetaminophen 325 MG Tablet 650 MG PO ×2 (08:39→16:00)
[2017-10-06] MEDS: Multivitamins,Therapeutic Tablet 1 TABLET PO (08:40)
[2017-10-06] MEDS: Citalopram 40 MG TABLET PO (08:40)
[2017-10-06] MEDS: Enoxaparin 30 MG/0.3 ML Syringe SC (08:40)
[2017-10-06] MEDS: Aspirin E.C. 81 MG Tablet PO (08:40)
[2017-10-06] MEDS: Glucerna Shake 120 ML LIQUID PO (08:40)
[2017-10-06] MEDS: Nystatin Powder 15gm Bottle 1 APPLIC TOPICAL (08:41)
[2017-10-06] MEDS: Gabapentin 300 MG Capsule PO (09:58)
[2017-10-06 11:55] LABS: Bedside Glucose 114 mg/dL (70-110)
--- NOTE | 2017-10-06 11:55 | PCM.TXEXTCAR ---
- Diet 10/04/17 17:04 Diet: Cardiac/Low Cholesterol Food consistency:: Regular Liquid Consistency:: Regular/Thin - Routine Orders/Code Status Suppository Type: Dulcolax 10mg Suppository Frequency: Daily PRN Routine Lab Work: CBC - 3 days, BMP - 3 days Code Status: Full Code - Wound(s) abdomen fold right and left Wound Type: excoriation under right and left breasts Wound Type: excoriation coccyx Wound Type: Pressure Injury sacrum Wound Type: Pressure Injury Dressing Change: Wet to Dry Dressing - Therapies Physical Therapy: Eval and Treat Occupational Therapy: Eval and Treat - Problem/Diagnosis (1) Acute on Recurrent UTI Status: Acute Current Visit: No (2) Hypoglycemia Status: Acute Current Visit: Yes (3) Decubitus ulcer Status: Chronic Current Visit: Yes (4) Debility Status: Chronic Current Visit: Yes (5) CKD (chronic kidney disease), stage III Status: Chronic Current Visit: No (6) DM type 2 (diabetes mellitus, type 2) Status: Chronic Current Visit: No (7) Gout Status: Chronic Current Visit: No (8) CAD (coronary artery disease) Status: Chronic Current Visit: No (9) Candidal intertrigo Status: Chronic Current Visit: No - Allergies/Procedures Done in Hospital Allergies/Adverse Reactions: Allergies cephalexin [From Keflex] Allergy (Verified 10/04/17 13:13) Rash Penicillins Allergy (Verified 10/04/17 13:13) Rash Procedures: None - Type of Care/Length of Stay Estimated LOS: Convalescent Care Less Than 30 days Type of Care Needed: Skilled Rehab Potential: Fair Prognosis: Fair - Additional Orders/Day of Discharge Additional Orders: Daily wound dressing changes. Day of Discharge: 10/06/17 - Dietary and Speech Recommendations Dietitian Recommendations/Changes: Please check prealb and A1c. Rec diet change to 2200 d[address] Cardiac / low sodium. Rec Blaze bid to help w/ skin healing. Will order glucerna shake w/ meals for increased nutrition if consumed - Follow Up Care Primary Care Physician: Anyi Zamora, [employer]-C [Primary Care Provider] - Please follow up with your Primary Care Physician in: 2 weeks
--- NOTE | 2017-10-06 12:50 | CASEMGMT ---
OREN let Sheridan at [facility] know that patient will be ready today. Sheridan said that they can take her today. OREN spoke with patient's and they are meeting with Palliative Care at today. OREN will arrange transport for later today. Convalescent was completed on . Ashley ARANDA MSW
--- NOTE | 2017-10-06 13:08 | CASEMGMT ---
OREN set up transport for 4p via cot. OREN also called Adult Protective Services and left a message for [place] letting her know patient will be going to [facility] today. OREN also called [facility] and let her know patient will be going to [facility] today. Ashley ARANDA MSW
--- NOTE | 2017-10-06 13:35 | CASEMGMT ---
Faxed orders to [facility]. Competed convalescent on HENS. SW notified RN who will notify patient, secretary office clerk, and Sheridan at [facility] of transport time. Evelyn from Palliative/Hospice was also notified as well. Plan: [facility] under skilled level of care on a [place]val[place] stay[place] [facility] [place] Ashley ARANDA MSW
--- NOTE | 2017-10-06 14:22 | NURSING ---
Report called to [facility]
--- NOTE | 2017-10-06 14:23 | CASEMGMT ---
Elias Rivas at Palliative Care patient and her agreed to Palliative Care. Ashley ARANDA MSW
--- NOTE | 2017-10-06 15:43 | PCM.DC.SUM ---
<Steven Holder - Last Filed: 10/06/17 15:44> Discharge Date and Diagnosis Date of Admission: 10/04/17 Date of Discharge: 10/06/17 - Primary Discharge Diagnosis Active and Suspected Problems UTI (urinary tract infection) (Acute) with failed outpatient therapy, citrobacter, klebsiella, catheter associated DMt2 with Hypoglycemia (Acute) Nonhealing stage III-IV sacral pressure injury present on admission physical debility intertrigo HLD Obesity CKD III Chronic normocytic anemia - Secondary Discharge Diagnosis Chronic Problems Decubitus ulcer (Chronic) Debility (Chronic) Dysphagia (Chronic) CKD (chronic kidney disease), stage III (Chronic) DM type 2 (diabetes mellitus, type 2) (Chronic) Gout (Chronic) Morbid obesity (Chronic) Psoriasis (Chronic) Rosacea (Chronic) CAD (coronary artery disease) (Chronic) Fibromyalgia (Chronic) Spastic paraparesis (Chronic) Skin excoriation (Chronic) secondary to fungal skin infection UTI (urinary tract infection) (Chronic) Candidal intertrigo (Chronic) Decubitus ulcer (Chronic) Hospital Course and Treatment Consultations 10/04/17 17:33 Consult: Onc/Wound/senior it assistant Routine Comment: Operations: None Procedures: None Summary of Care Provided: Physical exam on day of discharge: General: Resting comfortably NAD Psych: A/Ox3 normal affect HEENT: PEARRLA AT NC Neck: Supple NT CV: RRR no m/t/r/g/h Resp: CTA Abd: [id number] Soft NT no guarding or rigidity, obesity Ext: DP2+= no edema Skin: W/D normal turgor Lymph/Heme: No active bleeding or adenopathy Neuro: CN2-12 intact Hospital course: The patient is a 71 year old F with a hx of chronic sacral pressure injury, DMt2, UTIs, crouch catheter, obesity, CAD, CKDIII, who presented to the ER with worsening of chronic sacral ulcer. In the ER she was hypoglycemic with a blood sugar of 42 and it was found that she has these episodes and her gives her juice but also gives her lantus despite being low. She had also recently been diagnosed with a UTI which was treated with bactrim. She was admitted and placed on meropenem for UTI. Her previous cultures showed citrobacter youngae and klebsiella which were resistant to bactrim. She stated the reason for her indwelling catheter as being because she was in bed all the time and not able to get up at home. Given her nonhealing wounds would likely be beneficial for her to continue the catheter while they heal. As far as her wounds, her was only changing the dressings 3 times a week. She was seen by wound care while here who recommended daily wound dressing changes. She is very debilitated and seen by PT and OT, and intermediate was recommended. As far as her hypoglycemia, she was placed on a sliding scale insulin, and Lantus was discontinued. She had fair control of her blood sugar while here. She was discharged to intermediate in stable condition. For discharge I recommend that she continue the sliding scale insulin with Accu-Cheks. For now we will hold off of Lantus, if she starts to trend upward this can be restarted at a lower dose. As far as her UTI, she was placed on cefdinir as the bacteria were both sensitive to Rocephin, she will have a total of 7 days of therapy. She needs to have her Crouch intermittently changed if she is to keep it long-term. She will need to continue wound care daily at the skilled nursing. Wound cultures show rare GP and GNR. She will need to follow-up with her PCP in 2 weeks. She does have significant chronic anemia and chronic kidney disease, and will need periodic monitoring of her CBC and BMP. This patient was seen by Steven Holder PA-C under the supervision of Doctor Sousa. [] Discharge Diet: Low fat/ Low Cholesterol, 1800 Calorie Control Diet, 2000 mg Sodium Diet Discharge Activity: Return to Normal Activity Home Medications: Medications to take at Discharge Levothyroxine [Synthroid] 88 mcg PO DAILY 01/21/16 Nystatin Powder [Mycostatin Powder] 1 applic TOPICAL .COMPLEX 11/22/16 traZODone [Desyrel] 100 mg PO QHS PRN 11/22/16 Aspirin [Aspirin EC] 81 mg PO DAILY 09/28/17 Atorvastatin Calcium 10 mg PO QHS 09/28/17 Citalopram Hydrobromide [Citalopram HBr] 40 mg PO DAILY 09/28/17 Diphenoxylate HCl/Atropine [Lomotil 2.5-0.025 mg Tablet] 2 tab PO Q6H PRN PRN 09/28/17 Ergocalciferol [Vitamin D] 50,000 unit PO MO 09/28/17 Furosemide [Lasix] 40 mg PO DAILY 09/28/17 Gabapentin [Neurontin] 300 mg PO BIDCM 09/28/17 Menthol/Lanolin/Calamine/Znox [Calmoseptine Ointment] 1 applic TOPICAL .COMPLEX 09/28/17 Multivitamins,Therapeutic [Multivitamin] 1 tablet PO DAILY 09/28/17 Zinc Sulfate (50mg elemental) [Zinc Sulfate] 220 mg PO DAILY 09/28/17 Cefdinir [Omnicef [equiv]] 300 mg PO Q12H #11 capsule 10/06/17 Glucerna Shake 120 ml PO 4X/DAY liquid 10/06/17 Hydrocodone/Acetaminophen [Hydrocodone-Acetamin 7.5-325] 1 tab PO Q8H PRN PRN #9 tab 10/06/17 Insulin Lispro [Humalog KwikPen] See Protocol SC ACHS insuln.pen 10/06/17 Magnesium Hydroxide [Milk Of Magnesia] 30 ml PO DAILY PRN udc 10/06/17 Following Prescrptions Were Given to Patient: Cefdinir [Omnicef [equiv]] 300 mg PO Q12H #11 capsule Hydrocodone/Acetaminophen [Hydrocodone-Acetamin 7.5-325] 1 tab PO Q8H PRN PRN #9 tab PRN Reason: Pain Primary Care Physician: Anyi Zamora NP-C [Primary Care Provider] - Please follow up with your Primary Care Physician in: 2 weeks Disposition: Detention facility Minutes spent on discharge:: 35 Patient Condition:: Stable Medical Necessity - Tobacco Use Smoking Status: Former smoker Tobacco Use: Cigarettes Meaningful Use Info Meaningful Use Diagnoses (Choose all that apply): None applicable <Santos Sousa - Last Filed: 10/06/17 16:34> Discharge Date and Diagnosis - Secondary Discharge Diagnosis Chronic Problems Decubitus ulcer (Chronic) Debility (Chronic) Dysphagia (Chronic) CKD (chronic kidney disease), stage III (Chronic) DM type 2 (diabetes mellitus, type 2) (Chronic) Gout (Chronic) Morbid obesity (Chronic) Psoriasis (Chronic) Rosacea (Chronic) CAD (coronary artery disease) (Chronic) Fibromyalgia (Chronic) Spastic paraparesis (Chronic) Skin excoriation (Chronic) secondary to fungal skin infection UTI (urinary tract infection) (Chronic) Candidal intertrigo (Chronic) Decubitus ulcer (Chronic) Hospital Course and Treatment Consultations 10/04/17 17:33 Consult: Onc/Wound/senior it assistant Routine Comment: Summary of Care Provided: Addendum: Dr. Sousa I personally examined the patient and reviewed the chart. I agree with the above. She will need to have a discussion with palliative care and her to determine the best course of action. Given her current condition and her quality of life and the extent of her co-morbidities, she may need hospice before long. C/w with cefdinir, and most importantly, wound care as her is unable to care for her at home. Code Visit Inpatient E&M: 12298 Disch Hosp
== END 2017-10-06 16:06 | disposition skilled nursing facility (03) | DRG 698 ==
LOC: ED 13:57 → PCU 16:40
PROVIDERS: Nurse Practitioner Family; Emergency Provider Emergency Medicine; Family Provider Nurse Practitioner Adult Health; PCP Nurse Practitioner Adult Health; Visit Provider Family Medicine
DX: T83.511A Infection and inflammatory reaction due to indwelling urethral catheter, initial encounter (principal); L89.154 Pressure ulcer of sacral region, stage 4; N39.0 Urinary tract infection, site not specified; E11.649 Type 2 diabetes mellitus with hypoglycemia without coma; Z79.4 Long term (current) use of insulin; N18.3 Chronic kidney disease, stage 3 (moderate); E11.22 Type 2 diabetes mellitus with diabetic chronic kidney disease; E78.5 Hyperlipidemia, unspecified; L30.4 Erythema intertrigo; B96.0 Mycoplasma pneumoniae [M. pneumoniae] as the cause of diseases classified elsewhere; B96.89 Other specified bacterial agents as the cause of diseases classified elsewhere; D64.9 Anemia, unspecified; E66.9 Obesity, unspecified; Z68.33 Body mass index [BMI] 33.0-33.9, adult; R53.81 Other malaise; M10.9 Gout, unspecified; I25.10 Atherosclerotic heart disease of native coronary artery without angina pectoris; Z87.891 Personal history of nicotine dependence
CPT/HCPCS: 36415; 51702; 80048; 80053; 81001; 82962; 85025; 85027; 87070; 87075; 87077; 87186; 87205; 87640; 97161; 97166; 97530; 97802; 99284; J2185; J7030; J7040; A4216

== ENCOUNTER → 2017-10-07 16:29 | Outpatient (REF) | payer MEDICARE, SELFPAY ==
[2017-10-07 16:42] LABS: Absolute Lymphocyte Count 0.65 X10^3/ul (0.83-4.51); Absolute Neutrophil Count 2.9 X10^3/uL (2.0-7.7); Basophil# 0.02 X10^3/uL; Basophil% 0.5 % (0-1); Eosinophil# 0.34 X10^3/uL; Eosinophils% 8.1 % (0-5); Hematocrit 30.4 % (37-47); Hemoglobin 9.3 g/dl (12.0-15.0); Lymphocyte # 0.65 X10^3/ul (4.0); Lymphocyte % 15.4 % (19-41); Mean Corp Hgb Conc 30.6 g/gl (32-36); Mean Corpuscular Hgb 29.5 pg (27.0-32.0); Mean Corpuscular Volume 96.5 fL (81-99); Monocyte# 0.27 X10^3/uL; Monocyte% 6.4 % (0-10); Neutrophil % 68.7 % (47-70); Platelet Count 184 K/mm3 (150-450); RBC Distribution Width CV 14.2 % (11.6-14.6); RBC Distribution Width SD 46.5 fl (35.1-43.9); Red Blood Count 3.15 M/mm3 (4.2-5.4); White Blood Count 4.2 K/mm3 (4.4-11.0)
[2017-10-07 16:43] LABS: POSITIVE COUNT NO; POSITIVE DIFFERENTIAL NO; POSITIVE MORPHOLOGY NO
== END ==
LOC: OLS.AVEB 16:29
PROVIDERS: Visit Provider Family Medicine
DX: D64.9 Anemia, unspecified (principal); R03.1 Nonspecific low blood-pressure reading
CPT/HCPCS: 36415; 85025

== ENCOUNTER → 2017-10-10 04:00 | Outpatient (REF) | payer MEDICARE, SELFPAY ==
[2017-10-10 08:14] LABS: Absolute Lymphocyte Count 1.79 X10^3/ul (0.83-4.51); Absolute Neutrophil Count 3.1 X10^3/uL (2.0-7.7); Basophil# 0.02 X10^3/uL; Basophil% 0.4 % (0-1); Eosinophil# 0.22 X10^3/uL; Eosinophils% 3.9 % (0-5); Hematocrit 33.5 % (37-47); Lymphocyte # 1.79 X10^3/ul (4.0); Lymphocyte % 32.1 % (19-41); Mean Corp Hgb Conc 29.9 g/gl (32-36); Mean Corpuscular Hgb 29.4 pg (27.0-32.0); Mean Corpuscular Volume 98.5 fL (81-99); Monocyte# 0.32 X10^3/uL; Monocyte% 5.7 % (0-10); Neutrophil # 3.14 X10^3/uL (2.7-7.7); Neutrophil % 56.3 % (47-70); Platelet Count 226 K/mm3 (150-450); RBC Distribution Width CV 14.9 % (11.6-14.6); RBC Distribution Width SD 49.7 fl (35.1-43.9); White Blood Count 5.6 K/mm3 (4.4-11.0)
[2017-10-10 08:17] LABS: POSITIVE COUNT NO; POSITIVE DIFFERENTIAL NO; POSITIVE MORPHOLOGY NO
[2017-10-10 08:34] LABS: Anion Gap 9 (5-15); BUN 32 mg/dL (7-18); BUN/Creat Ratio 18.7 RATIO (10-20); Calcium,Total 7.1 mg/dL (8.5-10.1); Chloride 111 mmol/L (98-107); Creatinine, Serum 1.71 mg/dL (0.55-1.02); EST Glomerular Filtration Rate 31 mL/min (>60); Est Glom Filt Rate - Afr Amer 38 mL/min (>60); Glucose 128 mg/dL (74-106); Potassium 3.9 mmol/L (3.5-5.1); Sodium Level 140 mmol/L (136-145); Thyroid Stim Hormone (TSH) 7.24 uIU/mL (0.358-3.74)
[2017-10-10 08:41] LABS: Vitamin D,25 Hydroxy 20.9 ng/mL (29.95-100.01)
== END ==
LOC: OLS.AVED 04:00
PROVIDERS: Visit Provider Family Medicine
DX: D64.9 Anemia, unspecified (principal); I10 Essential (primary) hypertension; E03.9 Hypothyroidism, unspecified
CPT/HCPCS: 36415; 80048; 82306; 84443; 85025

== ENCOUNTER → 2017-10-13 08:30 | Outpatient (REF) | payer MEDICARE, SELFPAY ==
[2017-10-14 08:31] LABS: Bacteria 0 SEEN /hpf (None Seen); Mucous, Urine 0 SEEN /hpf (<or=2+); Squamous Epithelial Cells - UA 0 SEEN /hpf (5-10)
[2017-10-14 08:57] LABS: Color, Urine Yellow (Yellow); Glucose, Dipstick Normal (Normal); Ketone-Dipstick Negative (Negative); Leukocyte Esterase-Dipstick 100 /ul (Negative); Nitrite-Dipstick Negative (Negative); Occult Blood-Urine 250 /ul (Negative); Protein-Dipstick 30 mg/dl (Negative); Urine Bilirubin Dipstick Negative (Negative); Urine Clarity Sl. Cloudy (Clear); Urine Urobilinogen Normal (Normal)
[2017-10-14 09:04] LABS: Red Blood Cells-Urine > 100 SEEN /hpf (0-5); White Blood Cells 5-10 SEEN /hpf (0-5)
== END ==
LOC: OLS.AVEB 08:30
PROVIDERS: Visit Provider Family Medicine
DX: R69 Illness, unspecified (principal)
CPT/HCPCS: 81001; 87077; 87086; 87088

== ENCOUNTER → 2017-10-19 05:40 | Outpatient (REF) | payer MEDICARE, SELFPAY ==
[2017-10-19 08:41] LABS: Absolute Lymphocyte Count 1.38 X10^3/ul (0.83-4.51); Absolute Neutrophil Count 3.8 X10^3/uL (2.0-7.7); Basophil# 0.02 X10^3/uL; Basophil% 0.3 % (0-1); Eosinophil# 0.35 X10^3/uL; Eosinophils% 5.8 % (0-5); Hematocrit 31.9 % (37-47); Hemoglobin 9.3 g/dl (12.0-15.0); Lymphocyte # 1.38 X10^3/ul (4.0); Lymphocyte % 22.9 % (19-41); Mean Corp Hgb Conc 29.2 g/gl (32-36); Mean Corpuscular Hgb 29.5 pg (27.0-32.0); Mean Corpuscular Volume 101.3 fL (81-99); Mean Platelet Vol. 9.8 fl (6.2-12.0); Monocyte% 8.3 % (0-10); Neutrophil # 3.76 X10^3/uL (2.7-7.7); Neutrophil % 62.5 % (47-70); Platelet Count 134 K/mm3 (150-450); RBC Distribution Width CV 17.3 % (11.6-14.6); RBC Distribution Width SD 61.6 fl (35.1-43.9); Red Blood Count 3.15 M/mm3 (4.2-5.4)
[2017-10-19 08:48] LABS: Anion Gap 7 (5-15); BUN 27 mg/dL (7-18); BUN/Creat Ratio 21.8 RATIO (10-20); Calcium,Total 7.8 mg/dL (8.5-10.1); Chloride 110 mmol/L (98-107); Creatinine, Serum 1.24 mg/dL (0.55-1.02); EST Glomerular Filtration Rate 45 mL/min (>60); Est Glom Filt Rate - Afr Amer 55 mL/min (>60); Glucose 119 mg/dL (74-106); Potassium 4.7 mmol/L (3.5-5.1); Sodium Level 146 mmol/L (136-145)
[2017-10-19 08:50] LABS: POSITIVE COUNT NO; POSITIVE DIFFERENTIAL NO; POSITIVE MORPHOLOGY NO
== END ==
LOC: OLS.AVEB 05:40
PROVIDERS: Visit Provider Family Medicine
DX: D64.9 Anemia, unspecified (principal); I10 Essential (primary) hypertension; E03.9 Hypothyroidism, unspecified
CPT/HCPCS: 36415; 80048; 85025

== ENCOUNTER → 2017-10-24 04:00 | Outpatient (REF) | payer MEDICARE, SELFPAY ==
[2017-10-24 08:53] LABS: Anion Gap 9 (5-15); BUN 27 mg/dL (7-18); BUN/Creat Ratio 26.5 RATIO (10-20); Calcium,Total 7.6 mg/dL (8.5-10.1); Chloride 108 mmol/L (98-107); Creatinine, Serum 1.02 mg/dL (0.55-1.02); EST Glomerular Filtration Rate 57 mL/min (>60); Est Glom Filt Rate - Afr Amer 68 mL/min (>60); Glucose 103 mg/dL (74-106); Potassium 3.3 mmol/L (3.5-5.1); Sodium Level 147 mmol/L (136-145)
[2017-10-24 09:01] LABS: Absolute Lymphocyte Count 1.59 X10^3/ul (0.83-4.51); Absolute Neutrophil Count 5.1 X10^3/uL (2.0-7.7); Basophil# 0.01 X10^3/uL; Basophil% 0.1 % (0-1); Eosinophil# 0.34 X10^3/uL; Eosinophils% 4.6 % (0-5); Hematocrit 33.6 % (37-47); Hemoglobin 9.9 g/dl (12.0-15.0); Lymphocyte # 1.59 X10^3/ul (4.0); Lymphocyte % 21.5 % (19-41); Mean Corp Hgb Conc 29.5 g/gl (32-36); Mean Corpuscular Hgb 30.1 pg (27.0-32.0); Mean Corpuscular Volume 102.1 fL (81-99); Mean Platelet Vol. 10.9 fl (6.2-12.0); Monocyte# 0.36 X10^3/uL; Monocyte% 4.9 % (0-10); Neutrophil # 5.09 X10^3/uL (2.7-7.7); Neutrophil % 68.8 % (47-70); Platelet Count 143 K/mm3 (150-450); RBC Distribution Width CV 17.7 % (11.6-14.6); RBC Distribution Width SD 62.7 fl (35.1-43.9); Red Blood Count 3.29 M/mm3 (4.2-5.4); White Blood Count 7.4 K/mm3 (4.4-11.0)
[2017-10-24 09:07] LABS: POSITIVE COUNT NO; POSITIVE DIFFERENTIAL NO; POSITIVE MORPHOLOGY NO
== END ==
LOC: OLS.AVEC 04:00
PROVIDERS: Visit Provider Family Medicine
DX: D64.9 Anemia, unspecified (principal); I10 Essential (primary) hypertension; E03.9 Hypothyroidism, unspecified
CPT/HCPCS: 36415; 80048; 85025

== ENCOUNTER → 2017-11-01 05:00 | Outpatient (REF) | payer MEDICARE, SELFPAY ==
[2017-11-01 09:43] LABS: Absolute Lymphocyte Count 1.27 X10^3/ul (0.83-4.51); Absolute Neutrophil Count 3.7 X10^3/uL (2.0-7.7); Basophil# 0.01 X10^3/uL; Basophil% 0.2 % (0-1); Eosinophil# 0.18 X10^3/uL; Eosinophils% 3.3 % (0-5); Hematocrit 33.4 % (37-47); Hemoglobin 9.9 g/dl (12.0-15.0); Lymphocyte # 1.27 X10^3/ul (4.0); Lymphocyte % 23.3 % (19-41); Mean Corp Hgb Conc 29.6 g/gl (32-36); Mean Corpuscular Hgb 30.3 pg (27.0-32.0); Mean Corpuscular Volume 102.1 fL (81-99); Mean Platelet Vol. 11.2 fl (6.2-12.0); Monocyte# 0.32 X10^3/uL; Monocyte% 5.9 % (0-10); Neutrophil # 3.67 X10^3/uL (2.7-7.7); Neutrophil % 67.1 % (47-70); POSITIVE COUNT NO; POSITIVE DIFFERENTIAL NO; POSITIVE MORPHOLOGY NO; Platelet Count 157 K/mm3 (150-450); RBC Distribution Width CV 17.2 % (11.6-14.6); Red Blood Count 3.27 M/mm3 (4.2-5.4); White Blood Count 5.5 K/mm3 (4.4-11.0)
[2017-11-01 09:50] LABS: Anion Gap 5 (5-15); BUN 35 mg/dL (7-18); BUN/Creat Ratio 27.1 RATIO (10-20); Calcium,Total 7.6 mg/dL (8.5-10.1); Chloride 105 mmol/L (98-107); Creatinine, Serum 1.29 mg/dL (0.55-1.02); EST Glomerular Filtration Rate 43 mL/min (>60); Est Glom Filt Rate - Afr Amer 52 mL/min (>60); Glucose 98 mg/dL (74-106); Potassium 4.1 mmol/L (3.5-5.1); Sodium Level 142 mmol/L (136-145)
== END ==
LOC: OLS.AVEB 05:00
PROVIDERS: Visit Provider Family Medicine
DX: D64.9 Anemia, unspecified (principal); E11.9 Type 2 diabetes mellitus without complications; I10 Essential (primary) hypertension; E03.9 Hypothyroidism, unspecified
CPT/HCPCS: 36415; 80048; 85025

== ENCOUNTER → 2017-11-08 04:00 | Outpatient (REF) | payer MEDICARE, SELFPAY ==
[2017-11-08 09:11] LABS: Absolute Lymphocyte Count 1.51 X10^3/ul (0.83-4.51); Absolute Neutrophil Count 2.8 X10^3/uL (2.0-7.7); Basophil# 0.02 X10^3/uL; Basophil% 0.4 % (0-1); Eosinophil# 0.15 X10^3/uL; Eosinophils% 3.1 % (0-5); Hematocrit 33.2 % (37-47); Hemoglobin 9.6 g/dl (12.0-15.0); Lymphocyte # 1.51 X10^3/ul (4.0); Lymphocyte % 31.5 % (19-41); Mean Corp Hgb Conc 28.9 g/gl (32-36); Mean Corpuscular Hgb 29.7 pg (27.0-32.0); Mean Corpuscular Volume 102.8 fL (81-99); Mean Platelet Vol. 11.8 fl (6.2-12.0); Monocyte# 0.34 X10^3/uL; Monocyte% 7.1 % (0-10); Neutrophil # 2.77 X10^3/uL (2.7-7.7); Neutrophil % 57.7 % (47-70); Platelet Count 127 K/mm3 (150-450); RBC Distribution Width SD 62.6 fl (35.1-43.9); Red Blood Count 3.23 M/mm3 (4.2-5.4); White Blood Count 4.8 K/mm3 (4.4-11.0)
[2017-11-08 09:13] LABS: POSITIVE COUNT NO; POSITIVE DIFFERENTIAL NO; POSITIVE MORPHOLOGY NO
[2017-11-08 09:28] LABS: Anion Gap 3 (5-15); BUN 29 mg/dL (7-18); BUN/Creat Ratio 26.9 RATIO (10-20); Calcium,Total 7.5 mg/dL (8.5-10.1); Chloride 107 mmol/L (98-107); Creatinine, Serum 1.08 mg/dL (0.55-1.02); EST Glomerular Filtration Rate 53 mL/min (>60); Est Glom Filt Rate - Afr Amer 64 mL/min (>60); Glucose 91 mg/dL (74-106); Potassium 4.3 mmol/L (3.5-5.1); Sodium Level 145 mmol/L (136-145)
== END ==
LOC: OLS.AVEB 04:00
PROVIDERS: Visit Provider Family Medicine
DX: D64.9 Anemia, unspecified (principal); E11.9 Type 2 diabetes mellitus without complications
CPT/HCPCS: 36415; 80048; 85025

== ENCOUNTER → 2017-11-15 05:00 | Outpatient (REF) | payer MEDICARE, SELFPAY ==
[2017-11-15 09:03] LABS: Absolute Lymphocyte Count 1.36 X10^3/ul (0.83-4.51); Absolute Neutrophil Count 2.6 X10^3/uL (2.0-7.7); Basophil# 0.01 X10^3/uL; Basophil% 0.2 % (0-1); Eosinophil# 0.16 X10^3/uL; Eosinophils% 3.5 % (0-5); Hematocrit 32.2 % (37-47); Hemoglobin 9.4 g/dl (12.0-15.0); Lymphocyte # 1.36 X10^3/ul (4.0); Lymphocyte % 30.2 % (19-41); Mean Corp Hgb Conc 29.2 g/gl (32-36); Mean Corpuscular Hgb 30.1 pg (27.0-32.0); Mean Corpuscular Volume 103.2 fL (81-99); Mean Platelet Vol. 10.9 fl (6.2-12.0); Monocyte# 0.35 X10^3/uL; Monocyte% 7.8 % (0-10); Neutrophil # 2.62 X10^3/uL (2.7-7.7); Neutrophil % 58.1 % (47-70); POSITIVE COUNT NO; POSITIVE DIFFERENTIAL NO; POSITIVE MORPHOLOGY NO; Platelet Count 128 K/mm3 (150-450); RBC Distribution Width CV 16.3 % (11.6-14.6); RBC Distribution Width SD 60.3 fl (35.1-43.9); Red Blood Count 3.12 M/mm3 (4.2-5.4); White Blood Count 4.5 K/mm3 (4.4-11.0)
[2017-11-15 09:05] LABS: Anion Gap 5 (5-15); BUN 30 mg/dL (7-18); Calcium,Total 7.5 mg/dL (8.5-10.1); Chloride 107 mmol/L (98-107); EST Glomerular Filtration Rate 47 mL/min (>60); Est Glom Filt Rate - Afr Amer 57 mL/min (>60); Glucose 103 mg/dL (74-106); Sodium Level 146 mmol/L (136-145)
== END ==
LOC: OLS.AVED 05:00
PROVIDERS: Visit Provider Family Medicine
DX: D64.9 Anemia, unspecified (principal); E11.9 Type 2 diabetes mellitus without complications
CPT/HCPCS: 36415; 80048; 85025

== ENCOUNTER → 2017-11-22 04:00 | Outpatient (REF) | payer MEDICARE, SELFPAY ==
[2017-11-22 09:10] LABS: Absolute Lymphocyte Count 1.72 X10^3/ul (0.83-4.51); Absolute Neutrophil Count 3.6 X10^3/uL (2.0-7.7); Basophil# 0.01 X10^3/uL; Basophil% 0.2 % (0-1); Eosinophil# 0.18 X10^3/uL; Hematocrit 33.7 % (37-47); Lymphocyte # 1.72 X10^3/ul (4.0); Lymphocyte % 28.9 % (19-41); Mean Corp Hgb Conc 29.7 g/gl (32-36); Mean Corpuscular Volume 101.2 fL (81-99); Mean Platelet Vol. 11.3 fl (6.2-12.0); Monocyte# 0.43 X10^3/uL; Monocyte% 7.2 % (0-10); Neutrophil # 3.61 X10^3/uL (2.7-7.7); Neutrophil % 60.7 % (47-70); Platelet Count 150 K/mm3 (150-450); RBC Distribution Width CV 15.9 % (11.6-14.6); RBC Distribution Width SD 57.1 fl (35.1-43.9); Red Blood Count 3.33 M/mm3 (4.2-5.4)
[2017-11-22 09:12] LABS: POSITIVE COUNT NO; POSITIVE DIFFERENTIAL NO; POSITIVE MORPHOLOGY NO
[2017-11-22 09:13] LABS: Anion Gap 4 (5-15); BUN 26 mg/dL (7-18); BUN/Creat Ratio 19.5 RATIO (10-20); Calcium,Total 7.2 mg/dL (8.5-10.1); Chloride 107 mmol/L (98-107); Creatinine, Serum 1.33 mg/dL (0.55-1.02); EST Glomerular Filtration Rate 42 mL/min (>60); Est Glom Filt Rate - Afr Amer 50 mL/min (>60); Glucose 100 mg/dL (74-106); Potassium 3.9 mmol/L (3.5-5.1); Sodium Level 143 mmol/L (136-145)
== END ==
LOC: OLS.AVEC 04:00
PROVIDERS: Visit Provider Family Medicine
DX: D64.9 Anemia, unspecified (principal); E11.9 Type 2 diabetes mellitus without complications
CPT/HCPCS: 36415; 80048; 85025

== ENCOUNTER → 2017-11-24 21:45 | Outpatient (REF) | payer MEDICARE, SELFPAY ==
[2017-11-25 07:51] LABS: Mucous, Urine 0 SEEN /hpf (<or=2+)
[2017-11-25 08:07] LABS: Color, Urine Yellow (Yellow); Glucose, Dipstick Normal (Normal); Ketone-Dipstick Negative (Negative); Leukocyte Esterase-Dipstick 500 /ul (Negative); Nitrite-Dipstick Positive (Negative); Occult Blood-Urine 25 /ul (Negative); Protein-Dipstick 30 mg/dl (Negative); Specific Gravity, Urine 1.015 (1.002-1.030); Urine Bilirubin Dipstick Negative (Negative); Urine Clarity Sl. Cloudy (Clear); Urine Urobilinogen Normal (Normal)
[2017-11-25 08:14] LABS: Bacteria 2+ /hpf (None Seen); Red Blood Cells-Urine 0-5 SEEN /hpf (0-5); White Blood Cells 25-50 SEEN /hpf (0-5)
[2017-11-25 08:15] LABS: Squamous Epithelial Cells - UA 0-5 SEEN /hpf (5-10); Triple Phosphate Crystals Ur 2+ /hpf (<or=1+)
== END ==
LOC: OLS.AVEC 21:45
PROVIDERS: Visit Provider Family Medicine
DX: N39.0 Urinary tract infection, site not specified (principal)
CPT/HCPCS: 81001; 87077; 87086; 87088; 87186

== ENCOUNTER → 2017-11-29 05:00 | Outpatient (REF) | payer MEDICARE, SELFPAY ==
[2017-11-29 08:18] LABS: Absolute Lymphocyte Count 1.48 X10^3/ul (0.83-4.51); Basophil# 0.01 X10^3/uL; Basophil% 0.2 % (0-1); Eosinophil# 0.22 X10^3/uL; Eosinophils% 4.4 % (0-5); Hematocrit 34.8 % (37-47); Hemoglobin 10.4 g/dl (12.0-15.0); Lymphocyte # 1.48 X10^3/ul (4.0); Lymphocyte % 29.4 % (19-41); Mean Corp Hgb Conc 29.9 g/gl (32-36); Mean Corpuscular Hgb 30.5 pg (27.0-32.0); Mean Corpuscular Volume 102.1 fL (81-99); Mean Platelet Vol. 11.5 fl (6.2-12.0); Monocyte# 0.33 X10^3/uL; Monocyte% 6.5 % (0-10); Neutrophil % 59.5 % (47-70); POSITIVE COUNT NO; POSITIVE DIFFERENTIAL NO; POSITIVE MORPHOLOGY NO; Platelet Count 139 K/mm3 (150-450); RBC Distribution Width CV 15.4 % (11.6-14.6); RBC Distribution Width SD 56.7 fl (35.1-43.9); Red Blood Count 3.41 M/mm3 (4.2-5.4)
[2017-11-29 08:18] LABS: Anion Gap 6 (5-15); BUN 23 mg/dL (7-18); BUN/Creat Ratio 12.9 RATIO (10-20); Calcium,Total 7.8 mg/dL (8.5-10.1); Chloride 107 mmol/L (98-107); Creatinine, Serum 1.78 mg/dL (0.55-1.02); EST Glomerular Filtration Rate 30 mL/min (>60); Est Glom Filt Rate - Afr Amer 36 mL/min (>60); Glucose 96 mg/dL (74-106); Potassium 4.2 mmol/L (3.5-5.1); Sodium Level 144 mmol/L (136-145)
[2017-11-29 12:33] LABS: Mucous, Urine 0 SEEN /hpf (<or=2+); Red Blood Cells-Urine 0 SEEN /hpf (0-5)
[2017-11-29 12:39] LABS: Color, Urine Yellow (Yellow); Glucose, Dipstick Normal (Normal); Ketone-Dipstick Negative (Negative); Leukocyte Esterase-Dipstick 500 /ul (Negative); Nitrite-Dipstick Positive (Negative); Occult Blood-Urine 150 /ul (Negative); Protein-Dipstick 15 mg/dl (Negative); Urine Bilirubin Dipstick Negative (Negative); Urine Clarity Sl. Cloudy (Clear); Urine Urobilinogen Normal (Normal)
[2017-11-29 13:49] LABS: White Blood Cells 10-25 SEEN /hpf (0-5)
[2017-11-29 13:50] LABS: Bacteria 2+ /hpf (None Seen); Squamous Epithelial Cells - UA 0-5 SEEN /hpf (5-10); Triple Phosphate Crystals Ur 3+ /hpf (<or=1+)
== END ==
LOC: OLS.AVEC 05:00
PROVIDERS: Visit Provider Family Medicine
DX: D64.9 Anemia, unspecified (principal); E11.9 Type 2 diabetes mellitus without complications; N39.0 Urinary tract infection, site not specified
CPT/HCPCS: 36415; 80048; 81001; 85025; 87086; 87088

== ENCOUNTER → 2017-12-06 05:00 | Outpatient (REF) | payer MEDICARE, SELFPAY ==
[2017-12-06 07:51] LABS: Absolute Lymphocyte Count 1.38 X10^3/ul (0.83-4.51); Absolute Neutrophil Count 2.4 X10^3/uL (2.0-7.7); Basophil# 0.01 X10^3/uL; Basophil% 0.2 % (0-1); Eosinophil# 0.25 X10^3/uL; Eosinophils% 5.7 % (0-5); Hematocrit 35.3 % (37-47); Hemoglobin 10.7 g/dl (12.0-15.0); Lymphocyte # 1.38 X10^3/ul (4.0); Lymphocyte % 31.7 % (19-41); Mean Corp Hgb Conc 30.3 g/gl (32-36); Mean Corpuscular Hgb 30.1 pg (27.0-32.0); Mean Corpuscular Volume 99.2 fL (81-99); Mean Platelet Vol. 11.2 fl (6.2-12.0); Monocyte# 0.27 X10^3/uL; Monocyte% 6.2 % (0-10); Neutrophil # 2.43 X10^3/uL (2.7-7.7); POSITIVE COUNT NO; POSITIVE DIFFERENTIAL NO; POSITIVE MORPHOLOGY NO; Platelet Count 147 K/mm3 (150-450); RBC Distribution Width SD 53.1 fl (35.1-43.9); Red Blood Count 3.56 M/mm3 (4.2-5.4); White Blood Count 4.4 K/mm3 (4.4-11.0)
[2017-12-06 08:03] LABS: Anion Gap 5 (5-15); BUN 22 mg/dL (7-18); BUN/Creat Ratio 11.2 RATIO (10-20); Chloride 103 mmol/L (98-107); Creatinine, Serum 1.97 mg/dL (0.55-1.02); EST Glomerular Filtration Rate 26 mL/min (>60); Est Glom Filt Rate - Afr Amer 32 mL/min (>60); Glucose 87 mg/dL (74-106); Potassium 4.9 mmol/L (3.5-5.1); Sodium Level 140 mmol/L (136-145)
== END ==
LOC: OLS.AVEC 05:00
PROVIDERS: Visit Provider Family Medicine
DX: Z00.00 Encounter for general adult medical examination without abnormal findings (principal); D64.9 Anemia, unspecified; E11.9 Type 2 diabetes mellitus without complications
CPT/HCPCS: 36415; 80048; 85025

== ENCOUNTER → 2017-12-12 04:00 | Outpatient (REF) | payer MEDICARE, SELFPAY ==
[2017-12-12 07:32] LABS: Absolute Lymphocyte Count 1.12 X10^3/ul (0.83-4.51); Absolute Neutrophil Count 3.8 X10^3/uL (2.0-7.7); Basophil# 0.02 X10^3/uL; Basophil% 0.4 % (0-1); Eosinophil# 0.22 X10^3/uL; Hematocrit 37.4 % (37-47); Hemoglobin 11.1 g/dl (12.0-15.0); Lymphocyte # 1.12 X10^3/ul (4.0); Lymphocyte % 20.5 % (19-41); Mean Corp Hgb Conc 29.7 g/gl (32-36); Mean Corpuscular Hgb 30.2 pg (27.0-32.0); Mean Corpuscular Volume 101.6 fL (81-99); Mean Platelet Vol. 11.1 fl (6.2-12.0); Monocyte# 0.32 X10^3/uL; Monocyte% 5.9 % (0-10); Neutrophil # 3.78 X10^3/uL (2.7-7.7); Platelet Count 143 K/mm3 (150-450); RBC Distribution Width CV 14.8 % (11.6-14.6); RBC Distribution Width SD 53.8 fl (35.1-43.9); Red Blood Count 3.68 M/mm3 (4.2-5.4); White Blood Count 5.5 K/mm3 (4.4-11.0)
[2017-12-12 07:34] LABS: POSITIVE COUNT NO; POSITIVE DIFFERENTIAL NO; POSITIVE MORPHOLOGY NO
[2017-12-12 07:46] LABS: Hemoglobin A1c 4.9 % (4.2-6.3)
[2017-12-12 07:50] LABS: ALB/GLOB Ratio 0.4 RATIO (0.9-2.4); AST(SGOT) 25 U/L (15-37); Alanine Aminotransfer ALT/SGPT 22 U/L (13-56); Albumin, Serum 1.7 g/dL (3.2-5.0); Alkaline Phosphatase 158 U/L (45-117); Anion Gap 3 (5-15); BUN 26 mg/dL (7-18); BUN/Creat Ratio 18.1 RATIO (10-20); Calcium,Total 7.7 mg/dL (8.5-10.1); Chloride 107 mmol/L (98-107); Creatinine, Serum 1.44 mg/dL (0.55-1.02); EST Glomerular Filtration Rate 38 mL/min (>60); Est Glom Filt Rate - Afr Amer 46 mL/min (>60); Globulin 4.5 g/dL (2.2-4.2); Glucose 107 mg/dL (74-106); Potassium 5.5 mmol/L (3.5-5.1); Protein, Total 6.2 g/dL (6.4-8.2); Sodium Level 140 mmol/L (136-145); Thyroid Stim Hormone (TSH) 3.16 uIU/mL (0.358-3.74)
== END ==
LOC: OLS.AVEC 04:00
PROVIDERS: Visit Provider Family Medicine
DX: I10 Essential (primary) hypertension (principal); D64.9 Anemia, unspecified; E03.9 Hypothyroidism, unspecified
CPT/HCPCS: 36415; 80053; 83036; 84443; 85025

== ENCOUNTER → 2017-12-14 05:00 | Outpatient (REF) | payer MEDICARE, SELFPAY ==
[2017-12-14 08:20] LABS: Potassium 4.3 mmol/L (3.5-5.1)
== END ==
LOC: OLS.AVEC 05:00
PROVIDERS: Visit Provider Family Medicine
DX: N18.9 Chronic kidney disease, unspecified (principal); D63.1 Anemia in chronic kidney disease
CPT/HCPCS: 36415; 84132

== ENCOUNTER → 2017-12-20 04:00 | Outpatient (REF) | payer MEDICARE, SELFPAY ==
[2017-12-20 08:48] LABS: Absolute Lymphocyte Count 1.05 X10^3/ul (0.83-4.51); Absolute Neutrophil Count 3.4 X10^3/uL (2.0-7.7); Basophil# 0.01 X10^3/uL; Basophil% 0.2 % (0-1); Eosinophil# 0.19 X10^3/uL; Eosinophils% 3.8 % (0-5); Hematocrit 34.2 % (37-47); Hemoglobin 10.2 g/dl (12.0-15.0); Lymphocyte # 1.05 X10^3/ul (4.0); Lymphocyte % 20.8 % (19-41); Mean Corp Hgb Conc 29.8 g/gl (32-36); Mean Corpuscular Hgb 29.6 pg (27.0-32.0); Mean Corpuscular Volume 99.1 fL (81-99); Mean Platelet Vol. 11.5 fl (6.2-12.0); Monocyte% 7.9 % (0-10); Neutrophil # 3.39 X10^3/uL (2.7-7.7); Neutrophil % 67.3 % (47-70); Platelet Count 132 K/mm3 (150-450); RBC Distribution Width CV 14.4 % (11.6-14.6); RBC Distribution Width SD 52.4 fl (35.1-43.9); Red Blood Count 3.45 M/mm3 (4.2-5.4)
[2017-12-20 08:51] LABS: POSITIVE COUNT NO; POSITIVE DIFFERENTIAL NO; POSITIVE MORPHOLOGY NO
[2017-12-20 09:10] LABS: Anion Gap 4 (5-15); BUN 28 mg/dL (7-18); BUN/Creat Ratio 20.1 RATIO (10-20); Calcium,Total 7.9 mg/dL (8.5-10.1); Chloride 106 mmol/L (98-107); Creatinine, Serum 1.39 mg/dL (0.55-1.02); EST Glomerular Filtration Rate 40 mL/min (>60); Est Glom Filt Rate - Afr Amer 48 mL/min (>60); Glucose 106 mg/dL (74-106); Sodium Level 142 mmol/L (136-145)
== END ==
LOC: OLS.AVEC 04:00
PROVIDERS: Visit Provider Family Medicine
DX: D64.9 Anemia, unspecified (principal); E78.5 Hyperlipidemia, unspecified
CPT/HCPCS: 36415; 80048; 85025

== ENCOUNTER → 2017-12-27 05:00 | Outpatient (REF) | payer MEDICARE, SELFPAY ==
[2017-12-27 07:58] LABS: Absolute Lymphocyte Count 1.09 X10^3/ul (0.83-4.51); Absolute Neutrophil Count 4.5 X10^3/uL (2.0-7.7); Basophil# 0.01 X10^3/uL; Basophil% 0.2 % (0-1); Eosinophil# 0.18 X10^3/uL; Hematocrit 36.8 % (37-47); Lymphocyte # 1.09 X10^3/ul (4.0); Lymphocyte % 17.9 % (19-41); Mean Corp Hgb Conc 29.9 g/gl (32-36); Mean Corpuscular Hgb 29.8 pg (27.0-32.0); Mean Corpuscular Volume 99.7 fL (81-99); Mean Platelet Vol. 10.9 fl (6.2-12.0); Monocyte# 0.36 X10^3/uL; Monocyte% 5.9 % (0-10); Neutrophil # 4.45 X10^3/uL (2.7-7.7); Neutrophil % 72.8 % (47-70); POSITIVE COUNT NO; POSITIVE DIFFERENTIAL NO; POSITIVE MORPHOLOGY NO; Platelet Count 152 K/mm3 (150-450); RBC Distribution Width SD 49.8 fl (35.1-43.9); Red Blood Count 3.69 M/mm3 (4.2-5.4); White Blood Count 6.1 K/mm3 (4.4-11.0)
[2017-12-27 08:12] LABS: Anion Gap 5 (5-15); BUN 34 mg/dL (7-18); Calcium,Total 8.2 mg/dL (8.5-10.1); Chloride 107 mmol/L (98-107); Creatinine, Serum 1.36 mg/dL (0.55-1.02); EST Glomerular Filtration Rate 41 mL/min (>60); Est Glom Filt Rate - Afr Amer 49 mL/min (>60); Glucose 116 mg/dL (74-106); Potassium 4.8 mmol/L (3.5-5.1); Sodium Level 144 mmol/L (136-145)
== END ==
LOC: OLS.AVEC 05:00
PROVIDERS: Visit Provider Family Medicine
DX: D64.9 Anemia, unspecified (principal); E78.5 Hyperlipidemia, unspecified
CPT/HCPCS: 36415; 80048; 85025

== ENCOUNTER → 2018-01-03 07:35 | Outpatient (REF) | payer MEDICARE, SELFPAY ==
[2018-01-03 08:32] LABS: Absolute Neutrophil Count 3.8 X10^3/uL (2.0-7.7); Basophil# 0.01 X10^3/uL; Basophil% 0.2 % (0-1); Eosinophil# 0.17 X10^3/uL; Eosinophils% 2.9 % (0-5); Hematocrit 37.6 % (37-47); Hemoglobin 11.2 g/dl (12.0-15.0); Mean Corp Hgb Conc 29.8 g/gl (32-36); Mean Corpuscular Hgb 29.3 pg (27.0-32.0); Mean Corpuscular Volume 98.4 fL (81-99); Mean Platelet Vol. 10.7 fl (6.2-12.0); Monocyte# 0.34 X10^3/uL; Monocyte% 5.7 % (0-10); Platelet Count 140 K/mm3 (150-450); RBC Distribution Width CV 14.1 % (11.6-14.6); RBC Distribution Width SD 48.5 fl (35.1-43.9); Red Blood Count 3.82 M/mm3 (4.2-5.4); White Blood Count 5.9 K/mm3 (4.4-11.0)
[2018-01-03 08:35] LABS: Anion Gap 8 (5-15); BUN 29 mg/dL (7-18); BUN/Creat Ratio 18.5 RATIO (10-20); Calcium,Total 8.2 mg/dL (8.5-10.1); Chloride 104 mmol/L (98-107); Creatinine, Serum 1.57 mg/dL (0.55-1.02); EST Glomerular Filtration Rate 34 mL/min (>60); Est Glom Filt Rate - Afr Amer 42 mL/min (>60); Glucose 99 mg/dL (74-106); Potassium 4.3 mmol/L (3.5-5.1); Sodium Level 143 mmol/L (136-145)
[2018-01-03 08:37] LABS: POSITIVE COUNT NO; POSITIVE DIFFERENTIAL NO; POSITIVE MORPHOLOGY NO
== END ==
LOC: OLS.AVEC 07:35
PROVIDERS: Visit Provider Family Medicine
DX: D64.9 Anemia, unspecified (principal); E11.9 Type 2 diabetes mellitus without complications
CPT/HCPCS: 36415; 80048; 85025

== ENCOUNTER → 2018-01-10 05:00 | Outpatient (REF) | payer MEDICARE, SELFPAY ==
[2018-01-10 08:26] LABS: Absolute Neutrophil Count 4.5 X10^3/uL (2.0-7.7); Basophil# 0.01 X10^3/uL; Basophil% 0.2 % (0-1); Eosinophil# 0.21 X10^3/uL; Eosinophils% 3.4 % (0-5); Hematocrit 36.2 % (37-47); Lymphocyte % 17.8 % (19-41); Mean Corp Hgb Conc 30.4 g/gl (32-36); Mean Corpuscular Hgb 29.7 pg (27.0-32.0); Mean Corpuscular Volume 97.8 fL (81-99); Mean Platelet Vol. 11.3 fl (6.2-12.0); Monocyte# 0.39 X10^3/uL; Monocyte% 6.3 % (0-10); Neutrophil # 4.46 X10^3/uL (2.7-7.7); Neutrophil % 72.1 % (47-70); Platelet Count 128 K/mm3 (150-450); RBC Distribution Width CV 13.9 % (11.6-14.6); RBC Distribution Width SD 47.2 fl (35.1-43.9); White Blood Count 6.2 K/mm3 (4.4-11.0)
[2018-01-10 08:28] LABS: POSITIVE COUNT NO; POSITIVE DIFFERENTIAL NO; POSITIVE MORPHOLOGY NO
[2018-01-10 08:35] LABS: Anion Gap 4 (5-15); BUN 31 mg/dL (7-18); BUN/Creat Ratio 21.5 RATIO (10-20); Chloride 104 mmol/L (98-107); Creatinine, Serum 1.44 mg/dL (0.55-1.02); EST Glomerular Filtration Rate 38 mL/min (>60); Est Glom Filt Rate - Afr Amer 46 mL/min (>60); Glucose 115 mg/dL (74-106); Potassium 4.3 mmol/L (3.5-5.1); Sodium Level 140 mmol/L (136-145)
--- OUTSIDE RECORDS SUMMARY | 2018-02-21 18:20 | XMS RPT_ITS ---
:1945 Author Organization [place] Support Name Relationship Address Phone FifiGurpreet Unavailable [address] + [place] [address] R Unavailable Unavailable Unavailable Gurpreet [employer] Unavailable [address] + [place] [address] R Unavailable Unavailable Unavailable Gurpreet Cal[employer] Unavailable [address] + [place] [address] R Unavailable Unavailable Unavailable Gurpreet [employer] Unavailable [address] + [place] [address] R Unavailable Unavailable Unavailable Gurpreet [employer] Unavailable [address] + [place] [address] R Unavailable Unavailable Unavailable Gurpreet [employer] Unavailable [address] + [place] [address] R Unavailable Unavailable Unavailable Gurpreet [employer] Unavailable [address] + [place] [address] R Unavailable Unavailable Unavailable Gurpreet Cal[employer] Unavailable [address] + [place] [address] R Unavailable Unavailable Unavailable Gurpreet [employer] Unavailable [address] + [place] [address] R Unavailable Unavailable Unavailable Gurpreet [employer] Unavailable [address] + [place] [address] R Unavailable Unavailable Unavailable Gurpreet [employer] Unavailable [address] + [place] [address] R Unavailable Unavailable Unavailable Gurpreet Cal[employer] Unavailable [address] + [place] [address] R Unavailable Unavailable Unavailable Gurpreet Cal[employer] Unavailable [address] + [place] [address] R Unavailable Unavailable Unavailable Calix, Gurpreet Unavailable [address] + [place] [address] R Unavailable Unavailable Unavailable Calix, Gurpreet Unavailable [address] + [place] [address] R Unavailable Unavailable Unavailable Calix, Gurpreet Unavailable [address] + [place] [address] R Unavailable Unavailable Unavailable Calix, Gurpreet Unavailable [address] + [place] [address] R Unavailable Unavailable Unavailable Calix, Gurpreet Unavailable [address] + [place] [address] R Unavailable Unavailable Unavailable Calix, Gurpreet Unavailable [address] + [place] [address] R Unavailable Unavailable Unavailable Calix, Gurpreet Unavailable [address] + [place] [address] R Unavailable Unavailable Unavailable Calix, Gurpreet Unavailable [address] + [place] [address] R Unavailable Unavailable Unavailable CALIX, GURPREET Unavailable [address] + [place] [address] R Unavailable Unavailable Unavailable CALIX, GURPREET Unavailable [address] + [place] [address] R Unavailable Unavailable Unavailable Calix, Gurpreet Unavailable [address] + [place] [address] R Unavailable Unavailable Unavailable Calix, Gurpreet Unavailable [address] + [place] [address] R Unavailable Unavailable Unavailable CALIX, GURPREET Unavailable [address] + [place] [address] R Unavailable Unavailable Unavailable CALIX, GURPREET Unavailable [address] + [place] [address] R Unavailable Unavailable Unavailable Care Team Providers Name Role Phone Mike Shen Attending Unavailable Mike Shen Attending Unavailable Anyi Zamora USED CAR SALESPERSON-C Attending Unavailable Primay Care Physicia, No Primary Care Unavailable Anyi Zamora USED CAR SALESPERSON-C Referring Unavailable Primay Care Physicia, No Primary Care Unavailable Harvey Medrano Attending Unavailable Anyi Zamora USED CAR SALESPERSON-C Primary Care Unavailable Jopperi, Harvey Admitting Unavailable Kotsonis, Santos F Attending Unavailable Jopperi, Harvey Admitting Unavailable Jopperi, Harvey Attending Unavailable Anyi Zamora. USED CAR SALESPERSON-C Primary Care Unavailable Jopperi, Harvey Consulting Unavailable Jopperi, Harvey Admitting Unavailable Anyi Zamora F. USED CAR SALESPERSON-C Primary Care Unavailable Kotsonis, Santos F Consulting Unavailable Kotsonis, Santos F Attending Unavailable Jopperi, Harvey Admitting Unavailable Anyi Zamora. USED CAR SALESPERSON-C Primary Care Unavailable Kotsonis, Santos F Consulting Unavailable Kotsonis, Santos F Attending Unavailable Shen, Mike Attending Unavailable Hsen, Mike Attending Unavailable Shen, Mike Attending Unavailable Shen, Mike Attending Unavailable Shen, Mike Attending Unavailable Shen, Mike Attending Unavailable Shen, Mike Attending Unavailable Shen, Mike Attending Unavailable Shen, Mike Attending Unavailable Shen, Mike Attending Unavailable Shen, Mike Attending Unavailable Shen, Mike Attending Unavailable Shen, Mike Attending Unavailable Shen, Mike Attending Unavailable Shen, Mike Attending Unavailable Shen, Mike Attending Unavailable Shen, Mike Attending Unavailable Shen, Mike Attending Unavailable Shen, Mike Attending Unavailable PROBLEMS PROBLEMS DATE TYPE CONDITION / CODE ATTENDING STATUS SOURCE 01/26/2018 Unknown D64.9 - Anemia, Shen Mike Active [place] unspecified / Community D64.9(ICD-10) Hospital Repository 01/26/2018 Unknown E11.9 - Type 2 Shen, Mike Active [place] diabetes mellitus Community without Hospital complications / Repository E11.9(ICD-10) 01/13/2018 Unknown E78.5 - Shen Mike Active [facility] Hyperlipidemia, Community unspecified / Hospital E78.5(ICD-10) Repository 01/06/2018 Unknown N18.9 - Chronic Shen, Mike Active [place] kidney disease, Community unspecified / Hospital N18.9(ICD-10) Repository 01/04/2018 Unknown I10 - Essential Shen Mike Active [facility] (primary) Community hypertension / Hospital I10(ICD-10) Repository 01/04/2018 Unknown E03.9 - Shen, Mike Active [place] Hypothyroidism, Community unspecified / Hospital E03.9(ICD-10) Repository 12/28/2017 Unknown Z78.9 - Other Shen, Mike Active [place] specified health Community status / Hospital Z78.9(ICD-10) Repository 12/23/2017 Unknown N39.0 - Urinary Mike Shen Active [facility] tract infection, Community site not specified Hospital / N39.0(ICD-10) Repository 11/25/2017 Unknown R03.1 - Nonspecific Mike Shen Active [place] low blood-pressure Community reading / Hospital R03.1(ICD-10) Repository 10/20/2017 Unknown L89.90 - Pressure Kotsonis, Active [place] ulcer of Santos F Community unspecified site, Hospital unspecified stage / Repository L89.90(ICD-10) PROCEDURES PROCEDURES No Procedure Records FoundRESULTS RESULTS CBC W/DIFF, AUTOMATED Collected: 01/31/2018 Status: F Source: [place] 5:45 AM [facility] REPOSITORY Order Comment: 170 TYPE CODE TESTS RESULT OUT OF RANGE REFERENCE UNITS LAB L100.1000 4.4-11.0 K/mm3 Normal WBC 6.5 LAB L100.1200 4.2-5.4 M/mm3 Low RBC 3.91 LAB L100.1300 12.0-15.0 g/dl Low HGB 11.2 LAB L100.1400 37-47 % Normal HCT 37.2 LAB L100.1500 81-99 fL Normal MCV 95.1 LAB L100.1600 27.0-32.0 pg Normal MCH 28.6 LAB L100.1700 32-36 g/gl Low MCHC 30.1 LAB L100.1810 11.6-14.6 % Normal RDW CV 14.0 LAB L100.1820 35.1-43.9 fl High RDW SD 46.3 LAB L100.1900 150-450 K/mm3 Low PLT 125 LAB L100.2000 6.2-12.0 fl Normal MPV 11.3 LAB L100.2100 47-70 % Normal NEUT% 65.0 LAB L100.2200 19-41 % Normal LY% 23.1 LAB L100.2300 0-10 % Normal MONO% 6.5 LAB L100.2400 0-5 % Normal EO% 4.9 LAB L100.2500 0-1 % Normal BASO% 0.3 LAB L100.2550 0.0-0.9 % Normal IM GRAN % 0.200 Result Comment: IG% - Immature Granulocytes (promyelocytes, myelocytes and metamyelocytes) > 1% indicates that a LEFT SHIFT is Present. LAB L100.2620 2.0-7.7 X10 3/uL Normal Absolute Neut 4.2 LAB L100.2720 0.83-4.51 X10 3/ul Normal Absolute Lymph 1.50 Performed By: #### L100.0100 #### [facility] [address] [place], [place], [address] BASIC METABOLIC Collected: 01/31/2018 Status: F Source: [place] PROFILE (BMP) 5:45 AM [facility] REPOSITORY Order Comment: 170 TYPE CODE TESTS RESULT OUT OF RANGE REFERENCE UNITS LAB L501.0100 74-106 mg/dL Normal GLU 101 Result Comment: Fasting Glucose result from 100 to 125 mg/dL suggests IMPAIRED HOMEOSTASIS per A.D.A. criteria. Please note revised GLUCOSE reference range effective 2017. LAB L501.1000 7-18 mg/dL High BUN 35 LAB L501.1100 0.55-1.02 mg/dL High CREAT,SERUM 1.47 Result Comment: The validity of the calculated GFR AND GFRAA in patients over 70 years has not been determined. Clinical correlation is essential. LAB L501.1110 >60 mL/min Low EST GFR 37 Result Comment: Non- GFR Calc LAB L501.1115 >60 mL/min Low EST GFR - AA 45 Result Comment: GFR Calc LAB L501.1300 10-20 RATIO High BUN/CRE 23.8 LAB L501.2200 8.5-10.1 mg/dL Low CA 8.3 LAB L501.5300 136-145 mmol/L NA Normal 141 LAB L501.5600 3.5-5.1 mmol/L K Normal 4.4 LAB L501.5900 98-107 mmol/L CL Normal 103 LAB L501.6100 21.0-32.0 mmol/L High CO2 33.0 LAB L501.6200 5-15 Normal GAP 5 Performed By: #### L500.2500 #### [facility] [address] [place], [address] CBC W/DIFF, AUTOMATED Collected: 01/24/2018 Status: F Source: [place] 6:45 AM [facility] REPOSITORY Order Comment: 170 TYPE CODE TESTS RESULT OUT OF RANGE REFERENCE UNITS LAB L100.1000 4.4-11.0 K/mm3 Normal WBC 5.7 LAB L100.1200 4.2-5.4 M/mm3 Low RBC 3.92 LAB L100.1300 12.0-15.0 g/dl Low HGB 11.4 LAB L100.1400 37-47 % Normal HCT 37.2 LAB L100.1500 81-99 fL Normal MCV 94.9 LAB L100.1600 27.0-32.0 pg Normal MCH 29.1 LAB L100.1700 32-36 g/gl Low MCHC 30.6 LAB L100.1810 11.6-14.6 % Normal RDW CV 13.7 LAB L100.1820 35.1-43.9 fl High RDW SD 45.1 LAB L100.1900 150-450 K/mm3 Low PLT 138 LAB L100.2000 6.2-12.0 fl Normal MPV 11.2 LAB L100.2100 47-70 % Normal NEUT% 60.5 LAB L100.2200 19-41 % Normal LY% 27.3 LAB L100.2300 0-10 % Normal MONO% 6.5 LAB L100.2400 0-5 % High EO% 5.3 LAB L100.2500 0-1 % Normal BASO% 0.2 LAB L100.2550 0.0-0.9 % Normal IM GRAN % 0.200 Result Comment: IG% - Immature Granulocytes (promyelocytes, myelocytes and metamyelocytes) > 1% indicates that a LEFT SHIFT is Present. LAB L100.2620 2.0-7.7 X10 3/uL Normal Absolute Neut 3.4 LAB L100.2720 0.83-4.51 X10 3/ul Normal Absolute Lymph 1.54 Performed By: #### L100.0100 #### [facility] [place], [address] BASIC METABOLIC Collected: 01/24/2018 Status: F Source: [place] PROFILE ([facility]) 6:45 AM [facility] REPOSITORY Order Comment: 170 TYPE CODE TESTS RESULT OUT OF RANGE REFERENCE UNITS LAB L501.0100 74-106 mg/dL Normal GLU 101 Result Comment: Fasting Glucose result from 100 to 125 mg/dL suggests IMPAIRED HOMEOSTASIS per A.D.A. criteria. Please note revised GLUCOSE reference range effective 2017. LAB L501.1000 7-18 mg/dL High BUN 39 LAB L501.1100 0.55-1.02 mg/dL High CREAT,SERUM 1.46 Result Comment: The validity of the calculated GFR AND GFRAA in patients over 70 years has not been determined. Clinical correlation is essential. LAB L501.1110 >60 mL/min Low EST GFR 37 Result Comment: Non- GFR Calc LAB L501.1115 >60 mL/min Low EST GFR - AA 45 Result Comment: GFR Calc LAB L501.1300 10-20 RATIO High BUN/CRE 26.7 LAB L501.2200 8.5-10.1 mg/dL Low CA 8.0 LAB L501.5300 136-145 mmol/L NA Normal 141 LAB L501.5600 3.5-5.1 mmol/L K Normal 3.8 LAB L501.5900 98-107 mmol/L CL Normal 104 LAB L501.6100 21.0-32.0 mmol/L Normal CO2 30.0 LAB L501.6200 5-15 Normal GAP 7 Performed By: #### L500.2500 #### [facility] [address] [place], [place], [address] CBC W/DIFF, AUTOMATED Collected: 01/17/2018 Status: F Source: [place] 7:50 AM [facility] REPOSITORY Order Comment: 170 TYPE CODE TESTS RESULT OUT OF RANGE REFERENCE UNITS LAB L100.1000 4.4-11.0 K/mm3 Normal WBC 5.0 LAB L100.1200 4.2-5.4 M/mm3 Low RBC 3.77 LAB L100.1300 12.0-15.0 g/dl Low HGB 10.8 LAB L100.1400 37-47 % Low HCT 35.8 LAB L100.1500 81-99 fL Normal MCV 95.0 LAB L100.1600 27.0-32.0 pg Normal MCH 28.6 LAB L100.1700 32-36 g/gl Low MCHC 30.2 LAB L100.1810 11.6-14.6 % Normal RDW CV 13.9 LAB L100.1820 35.1-43.9 fl High RDW SD 47.7 LAB L100.1900 150-450 K/mm3 Low PLT 146 LAB L100.2000 6.2-12.0 fl Normal MPV 11.1 LAB L100.2100 47-70 % Normal NEUT% 60.2 LAB L100.2200 19-41 % Normal LY% 28.4 LAB L100.2300 0-10 % Normal MONO% 6.4 LAB L100.2400 0-5 % Normal EO% 4.8 LAB L100.2500 0-1 % Normal BASO% 0.2 LAB L100.2550 0.0-0.9 % Normal IM GRAN % 0.000 Result Comment: IG% - Immature Granulocytes (promyelocytes, myelocytes and metamyelocytes) > 1% indicates that a LEFT SHIFT is Present. LAB L100.2620 2.0-7.7 X10 3/uL Normal Absolute Neut 3.0 LAB L100.2720 0.83-4.51 X10 3/ul Normal Absolute Lymph 1.43 Performed By: #### L100.0100 #### [facility] [address] [place], [address] BASIC METABOLIC Collected: 01/17/2018 Status: F Source: [place] PROFILE ([facility]) 7:50 AM [facility] REPOSITORY Order Comment: 170 TYPE CODE TESTS RESULT OUT OF RANGE REFERENCE UNITS LAB L501.0100 74-106 mg/dL Normal GLU 97 Result Comment: Please note revised GLUCOSE reference range effective 2017. LAB L501.1000 7-18 mg/dL High BUN 40 LAB L501.1100 0.55-1.02 mg/dL High CREAT,SERUM 1.46 Result Comment: The validity of the calculated GFR AND GFRAA in patients over 70 years has not been determined. Clinical correlation is essential. LAB L501.1110 >60 mL/min Low EST GFR 37 Result Comment: Non- GFR Calc LAB L501.1115 >60 mL/min Low EST GFR - AA 45 Result Comment: GFR Calc LAB L501.1300 10-20 RATIO High BUN/CRE 27.4 LAB L501.2200 8.5-10.1 mg/dL Low CA 8.3 LAB L501.5300 136-145 mmol/L NA Normal 141 LAB L501.5600 3.5-5.1 mmol/L K Normal 4.1 LAB L501.5900 98-107 mmol/L CL Normal 102 LAB L501.6100 21.0-32.0 mmol/L Normal CO2 32.0 LAB L501.6200 5-15 Normal GAP 7 Performed By: #### L500.2500 #### [facility] [place], [address] CBC W/DIFF, AUTOMATED Collected: 01/10/2018 Status: F Source: [place] 6:00 AM [facility] REPOSITORY Order Comment: 170 TYPE CODE TESTS RESULT OUT OF RANGE REFERENCE UNITS LAB L100.1000 4.4-11.0 K/mm3 Normal WBC 6.2 LAB L100.1200 4.2-5.4 M/mm3 Low RBC 3.70 LAB L100.1300 12.0-15.0 g/dl Low HGB 11.0 LAB L100.1400 37-47 % Low HCT 36.2 LAB L100.1500 81-99 fL Normal MCV 97.8 LAB L100.1600 27.0-32.0 pg Normal MCH 29.7 LAB L100.1700 32-36 g/gl Low MCHC 30.4 LAB L100.1810 11.6-14.6 % Normal RDW CV 13.9 LAB L100.1820 35.1-43.9 fl High RDW SD 47.2 LAB L100.1900 150-450 K/mm3 Low PLT 128 LAB L100.2000 6.2-12.0 fl Normal MPV 11.3 LAB L100.2100 47-70 % High NEUT% 72.1 LAB L100.2200 19-41 % Low LY% 17.8 LAB L100.2300 0-10 % Normal MONO% 6.3 LAB L100.2400 0-5 % Normal EO% 3.4 LAB L100.2500 0-1 % Normal BASO% 0.2 LAB L100.2550 0.0-0.9 % Normal IM GRAN % 0.200 Result Comment: IG% - Immature Granulocytes (promyelocytes, myelocytes and metamyelocytes) > 1% indicates that a LEFT SHIFT is Present. LAB L100.2620 2.0-7.7 X10 3/uL Normal Absolute Neut 4.5 LAB L100.2720 0.83-4.51 X10 3/ul Normal Absolute Lymph 1.10 Performed By: #### L100.0100 #### [facility] [address] [place], [place], [id number] BASIC METABOLIC Collected: 01/10/2018 Status: F Source: [place] PROFILE ([facility]) 6:00 AM [facility] REPOSITORY Order Comment: 170 TYPE CODE TESTS RESULT OUT OF RANGE REFERENCE UNITS LAB L501.0100 74-106 mg/dL High GLU 115 Result Comment: Fasting Glucose result from 100 to 125 mg/dL suggests IMPAIRED HOMEOSTASIS per A.D.A. criteria. Please note revised GLUCOSE reference range effective 2017. LAB L501.1000 7-18 mg/dL High BUN 31 LAB L501.1100 0.55-1.02 mg/dL High CREAT,SERUM 1.44 Result Comment: The validity of the calculated GFR AND GFRAA in patients over 70 years has not been determined. Clinical correlation is essential. LAB L501.1110 >60 mL/min Low EST GFR 38 Result Comment: Non- GFR Calc LAB L501.1115 >60 mL/min Low EST GFR - AA 46 Result Comment: GFR Calc LAB L501.1300 10-20 RATIO High BUN/CRE 21.5 LAB L501.2200 8.5-10.1 mg/dL Low CA 8.0 LAB L501.5300 136-145 mmol/L NA Normal 140 LAB L501.5600 3.5-5.1 mmol/L K Normal 4.3 LAB L501.5900 98-107 mmol/L CL Normal 104 LAB L501.6100 21.0-32.0 mmol/L Normal CO2 32.0 LAB L501.6200 5-15 Low GAP 4 Performed By: #### L500.2500 #### [facility] [address] [facility] [facility] [facility] [address] [place], [place], [address] BASIC METABOLIC Collected: 01/03/2018 Status: F Source: [place] PROFILE ([facility]) 7:35 AM [facility] REPOSITORY TYPE CODE TESTS RESULT OUT OF RANGE REFERENCE UNITS LAB L501.0100 74-106 mg/dL Normal GLU 99 Result Comment: Please note revised GLUCOSE reference range effective 2017. LAB L501.1000 7-18 mg/dL High BUN 29 LAB L501.1100 0.55-1.02 mg/dL High CREAT,SERUM 1.57 Result Comment: The validity of the calculated GFR AND GFRAA in patients over 70 years has not been determined. Clinical correlation is essential. LAB L501.1110 >60 mL/min Low EST GFR 34 Result Comment: Non- GFR Calc LAB L501.1115 >60 mL/min Low EST GFR - AA 42 Result Comment: GFR Calc LAB L501.1300 10-20 RATIO Normal BUN/CRE 18.5 LAB L501.2200 8.5-10.1 mg/dL Low CA 8.2 LAB L501.5300 136-145 mmol/L NA Normal 143 LAB L501.5600 3.5-5.1 mmol/L K Normal 4.3 LAB L501.5900 98-107 mmol/L CL Normal 104 LAB L501.6100 21.0-32.0 mmol/L Normal CO2 31.0 LAB L501.6200 5-15 Normal GAP 8 Performed By: #### L500.2500 #### [facility] [address] [facility] [place], [place], [id number] CBC W/DIFF, AUTOMATED Collected: 01/03/2018 Status: F Source: [place] 7:35 AM [facility] REPOSITORY TYPE CODE TESTS RESULT OUT OF RANGE REFERENCE UNITS LAB L100.1000 4.4-11.0 K/mm3 Normal WBC 5.9 LAB L100.1200 4.2-5.4 M/mm3 Low RBC 3.82 LAB L100.1300 12.0-15.0 g/dl Low HGB 11.2 LAB L100.1400 37-47 % Normal HCT 37.6 LAB L100.1500 81-99 fL Normal MCV 98.4 LAB L100.1600 27.0-32.0 pg Normal MCH 29.3 LAB L100.1700 32-36 g/gl Low MCHC 29.8 LAB L100.1810 11.6-14.6 % Normal RDW CV 14.1 LAB L100.1820 35.1-43.9 fl High RDW SD 48.5 LAB L100.1900 150-450 K/mm3 Low PLT 140 LAB L100.2000 6.2-12.0 fl Normal MPV 10.7 LAB L100.2100 47-70 % Normal NEUT% 64.0 LAB L100.2200 19-41 % Normal LY% 27.0 LAB L100.2300 0-10 % Normal MONO% 5.7 LAB L100.2400 0-5 % Normal EO% 2.9 LAB L100.2500 0-1 % Normal BASO% 0.2 LAB L100.2550 0.0-0.9 % Normal IM GRAN % 0.200 Result Comment: IG% - Immature Granulocytes (promyelocytes, myelocytes and metamyelocytes) > 1% indicates that a LEFT SHIFT is Present. LAB L100.2620 2.0-7.7 X10 3/uL Normal Absolute Neut 3.8 LAB L100.2720 0.83-4.51 X10 3/ul Normal Absolute Lymph 1.60 Performed By: #### L100.0100 #### [facility] [address] [facility] [place], [address] CBC W/DIFF, AUTOMATED Collected: 12/27/2017 Status: F Source: [place] 6:45 AM [facility] REPOSITORY Order Comment: 170 TYPE CODE TESTS RESULT OUT OF RANGE REFERENCE UNITS LAB L100.1000 4.4-11.0 K/mm3 Normal WBC 6.1 LAB L100.1200 4.2-5.4 M/mm3 Low RBC 3.69 LAB L100.1300 12.0-15.0 g/dl Low HGB 11.0 LAB L100.1400 37-47 % Low HCT 36.8 LAB L100.1500 81-99 fL High MCV 99.7 LAB L100.1600 27.0-32.0 pg Normal MCH 29.8 LAB L100.1700 32-36 g/gl Low MCHC 29.9 LAB L100.1810 11.6-14.6 % Normal RDW CV 14.0 LAB L100.1820 35.1-43.9 fl High RDW SD 49.8 LAB L100.1900 150-450 K/mm3 Normal PLT 152 LAB L100.2000 6.2-12.0 fl Normal MPV 10.9 LAB L100.2100 47-70 % High NEUT% 72.8 LAB L100.2200 19-41 % Low LY% 17.9 LAB L100.2300 0-10 % Normal MONO% 5.9 LAB L100.2400 0-5 % Normal EO% 3.0 LAB L100.2500 0-1 % Normal BASO% 0.2 LAB L100.2550 0.0-0.9 % Normal IM GRAN % 0.200 Result Comment: IG% - Immature Granulocytes (promyelocytes, myelocytes and metamyelocytes) > 1% indicates that a LEFT SHIFT is Present. LAB L100.2620 2.0-7.7 X10 3/uL Normal Absolute Neut 4.5 LAB L100.2720 0.83-4.51 X10 3/ul Normal Absolute Lymph 1.09 Performed By: #### L100.0100 #### [facility] [address] [place], [address] BASIC METABOLIC Collected: 12/27/2017 Status: F Source: [place] PROFILE ([facility]) 6:45 AM [facility] REPOSITORY Order Comment: 170 TYPE CODE TESTS RESULT OUT OF RANGE REFERENCE UNITS LAB L501.0100 74-106 mg/dL High GLU 116 Result Comment: Fasting Glucose result from 100 to 125 mg/dL suggests IMPAIRED HOMEOSTASIS per A.D.A. criteria. Please note revised GLUCOSE reference range effective 2017. LAB L501.1000 7-18 mg/dL High BUN 34 LAB L501.1100 0.55-1.02 mg/dL High CREAT,SERUM 1.36 Result Comment: The validity of the calculated GFR AND GFRAA in patients over 70 years has not been determined. Clinical correlation is essential. LAB L501.1110 >60 mL/min Low EST GFR 41 Result Comment: Non- GFR Calc LAB L501.1115 >60 mL/min Low EST GFR - AA 49 Result Comment: GFR Calc LAB L501.1300 10-20 RATIO High BUN/CRE 25.0 LAB L501.2200 8.5-10.1 mg/dL Low CA 8.2 LAB L501.5300 136-145 mmol/L NA Normal 144 LAB L501.5600 3.5-5.1 mmol/L K Normal 4.8 LAB L501.5900 98-107 mmol/L CL Normal 107 LAB L501.6100 21.0-32.0 mmol/L Normal CO2 32.0 LAB L501.6200 5-15 Normal GAP 5 Performed By: #### L500.2500 #### [facility] [place], [address] CBC W/DIFF, AUTOMATED Collected: 12/20/2017 Status: F Source: [place] 7:45 AM [facility] REPOSITORY Order Comment: ROOM 170 TYPE CODE TESTS RESULT OUT OF RANGE REFERENCE UNITS LAB L100.1000 4.4-11.0 K/mm3 Normal WBC 5.0 LAB L100.1200 4.2-5.4 M/mm3 Low RBC 3.45 LAB L100.1300 12.0-15.0 g/dl Low HGB 10.2 LAB L100.1400 37-47 % Low HCT 34.2 LAB L100.1500 81-99 fL High MCV 99.1 LAB L100.1600 27.0-32.0 pg Normal MCH 29.6 LAB L100.1700 32-36 g/gl Low MCHC 29.8 LAB L100.1810 11.6-14.6 % Normal RDW CV 14.4 LAB L100.1820 35.1-43.9 fl High RDW SD 52.4 LAB L100.1900 150-450 K/mm3 Low PLT 132 LAB L100.2000 6.2-12.0 fl Normal MPV 11.5 LAB L100.2100 47-70 % Normal NEUT% 67.3 LAB L100.2200 19-41 % Normal LY% 20.8 LAB L100.2300 0-10 % Normal MONO% 7.9 LAB L100.2400 0-5 % Normal EO% 3.8 LAB L100.2500 0-1 % Normal BASO% 0.2 LAB L100.2550 0.0-0.9 % Normal IM GRAN % 0.000 Result Comment: IG% - Immature Granulocytes (promyelocytes, myelocytes and metamyelocytes) > 1% indicates that a LEFT SHIFT is Present. LAB L100.2620 2.0-7.7 X10 3/uL Normal Absolute Neut 3.4 LAB L100.2720 0.83-4.51 X10 3/ul Normal Absolute Lymph 1.05 Performed By: #### L100.0100 #### [facility] [address] [place], [address] BASIC METABOLIC Collected: 12/20/2017 Status: F Source: [place] PROFILE (BMP) 7:45 AM [facility] REPOSITORY Order Comment: ROOM 170 TYPE CODE TESTS RESULT OUT OF RANGE REFERENCE UNITS LAB L501.0100 74-106 mg/dL Normal GLU 106 Result Comment: Fasting Glucose result from 100 to 125 mg/dL suggests IMPAIRED HOMEOSTASIS per A.D.A. criteria. Please note revised GLUCOSE reference range effective 2017. LAB L501.1000 7-18 mg/dL High BUN 28 LAB L501.1100 0.55-1.02 mg/dL High CREAT,SERUM 1.39 Result Comment: The validity of the calculated GFR AND GFRAA in patients over 70 years has not been determined. Clinical correlation is essential. LAB L501.1110 >60 mL/min Low EST GFR 40 Result Comment: Non- GFR Calc LAB L501.1115 >60 mL/min Low EST GFR - AA 48 Result Comment: GFR Calc LAB L501.1300 10-20 RATIO High BUN/CRE 20.1 LAB L501.2200 8.5-10.1 mg/dL Low CA 7.9 LAB L501.5300 136-145 mmol/L NA Normal 142 LAB L501.5600 3.5-5.1 mmol/L K Normal 4.0 LAB L501.5900 98-107 mmol/L CL Normal 106 LAB L501.6100 21.0-32.0 mmol/L Normal CO2 32.0 LAB L501.6200 5-15 Low GAP 4 Performed By: #### L500.2500 #### [facility] [address] [place], [address] POTASSIUM Collected: 12/14/2017 Status: F Source: [place] 6:40 AM [facility] REPOSITORY Order Comment: ROOM 170 TYPE CODE TESTS RESULT OUT OF RANGE REFERENCE UNITS LAB L501.5600 3.5-5.1 mmol/L Normal K 4.3 Performed By: #### L501.5600 #### [facility] [address] [place], [address] CBC W/DIFF, AUTOMATED Collected: 12/12/2017 Status: F Source: LUZERNE 5:30 AM [facility] REPOSITORY TYPE CODE TESTS RESULT OUT OF RANGE REFERENCE UNITS LAB L100.1000 4.4-11.0 K/mm3 Normal WBC 5.5 LAB L100.1200 4.2-5.4 M/mm3 Low RBC 3.68 LAB L100.1300 12.0-15.0 g/dl Low HGB 11.1 LAB L100.1400 37-47 % Normal HCT 37.4 LAB L100.1500 81-99 fL High MCV 101.6 LAB L100.1600 27.0-32.0 pg Normal MCH 30.2 LAB L100.1700 32-36 g/gl Low MCHC 29.7 LAB L100.1810 11.6-14.6 % High RDW CV 14.8 LAB L100.1820 35.1-43.9 fl High RDW SD 53.8 LAB L100.1900 150-450 K/mm3 Low PLT 143 LAB L100.2000 6.2-12.0 fl Normal MPV 11.1 LAB L100.2100 47-70 % Normal NEUT% 69.0 LAB L100.2200 19-41 % Normal LY% 20.5 LAB L100.2300 0-10 % Normal MONO% 5.9 LAB L100.2400 0-5 % Normal EO% 4.0 LAB L100.2500 0-1 % Normal BASO% 0.4 LAB L100.2550 0.0-0.9 % Normal IM GRAN % 0.200 Result Comment: IG% - Immature Granulocytes (promyelocytes, myelocytes and metamyelocytes) > 1% indicates that a LEFT SHIFT is Present. LAB L100.2620 2.0-7.7 X10 3/uL Normal Absolute Neut 3.8 LAB L100.2720 0.83-4.51 X10 3/ul Normal Absolute Lymph 1.12 Performed By: #### L100.0100 #### [facility] [address] [place], [place], [id number] HEMOGLOBIN A1C Collected: 12/12/2017 Status: F Source: [place] 5:30 AM [facility] REPOSITORY Order Comment: ROOM 170 TYPE CODE TESTS RESULT OUT OF RANGE REFERENCE UNITS LAB L501.9985 4.2-6.3 % Normal HGB A1C 4.9 Performed By: #### L501.9985 #### [facility] [place], [address] COMPREHENSIVE METABOLIC Collected: 12/12/2017 Status: F Source: JOSE [facility] 5:30 AM [facility] REPOSITORY Order Comment: ROOM 170 TYPE CODE TESTS RESULT OUT OF RANGE REFERENCE UNITS LAB L501.0100 74-106 mg/dL High GLU 107 Result Comment: Fasting Glucose result from 100 to 125 mg/dL suggests IMPAIRED HOMEOSTASIS per A.D.A. criteria. Please note revised GLUCOSE reference range effective 2017. LAB L501.1000 7-18 mg/dL High BUN 26 LAB L501.1100 0.55-1.02 mg/dL High CREAT,SERUM 1.44 Result Comment: The validity of the calculated GFR AND GFRAA in patients over 70 years has not been determined. Clinical correlation is essential. LAB L501.1110 >60 mL/min Low EST GFR 38 Result Comment: Non- GFR Calc LAB L501.1115 >60 mL/min Low EST GFR - AA 46 Result Comment: GFR Calc LAB L501.1300 10-20 RATIO Normal BUN/CRE 18.1 LAB L501.1500 6.4-8.2 g/dL Low T PROT 6.2 LAB L501.1800 3.2-5.0 g/dL Low ALB 1.7 LAB L501.1950 2.2-4.2 g/dL High GLOB 4.5 LAB L501.2000 0.9-2.4 RATIO Low A/G 0.4 LAB L501.2200 8.5-10.1 mg/dL Low CA 7.7 LAB L501.4100 15-37 U/L Normal AST 25 LAB L501.4305 45-117 U/L High ALK P 158 LAB L501.4405 13-56 U/L Normal ALT 22 LAB L501.4600 0.20-1.00 mg/dL T Normal BILI 0.50 LAB L501.5300 136-145 mmol/L NA Normal 140 LAB L501.5600 3.5-5.1 mmol/L High K 5.5 LAB L501.5900 98-107 mmol/L CL Normal 107 LAB L501.6100 21.0-32.0 mmol/L Normal CO2 30.0 LAB L501.6200 5-15 Low GAP 3 Performed By: #### L500.4050, L501.9520 #### [facility] [address] [facility] [place], [place], [address] THYROID STIM HORMONE Collected: 12/12/2017 Status: F Source: JOSE (TSH) 5:30 AM [facility] REPOSITORY Order Comment: ROOM 170 TYPE CODE TESTS RESULT OUT OF RANGE REFERENCE UNITS LAB L501.9520 0.358-3.74 uIU/mL Normal TSH 3.16 Performed By: #### L500.4050, L501.9520 #### [facility] [address] [place], [place], [address] CBC W/DIFF, AUTOMATED Collected: 12/06/2017 Status: F Source: [place] 6:25 AM [facility] REPOSITORY Order Comment: ROOM 170 TYPE CODE TESTS RESULT OUT OF RANGE REFERENCE UNITS LAB L100.1000 4.4-11.0 K/mm3 Normal WBC 4.4 LAB L100.1200 4.2-5.4 M/mm3 Low RBC 3.56 LAB L100.1300 12.0-15.0 g/dl Low HGB 10.7 LAB L100.1400 37-47 % Low HCT 35.3 LAB L100.1500 81-99 fL High MCV 99.2 LAB L100.1600 27.0-32.0 pg Normal MCH 30.1 LAB L100.1700 32-36 g/gl Low MCHC 30.3 LAB L100.1810 11.6-14.6 % High RDW CV 15.0 LAB L100.1820 35.1-43.9 fl High RDW SD 53.1 LAB L100.1900 150-450 K/mm3 Low PLT 147 LAB L100.2000 6.2-12.0 fl Normal MPV 11.2 LAB L100.2100 47-70 % Normal NEUT% 56.0 LAB L100.2200 19-41 % Normal LY% 31.7 LAB L100.2300 0-10 % Normal MONO% 6.2 LAB L100.2400 0-5 % High EO% 5.7 LAB L100.2500 0-1 % Normal BASO% 0.2 LAB L100.2550 0.0-0.9 % Normal IM GRAN % 0.200 Result Comment: IG% - Immature Granulocytes (promyelocytes, myelocytes and metamyelocytes) > 1% indicates that a LEFT SHIFT is Present. LAB L100.2620 2.0-7.7 X10 3/uL Normal Absolute Neut 2.4 LAB L100.2720 0.83-4.51 X10 3/ul Normal Absolute Lymph 1.38 Performed By: #### L100.0100 #### [facility] [address] [facility] [place], [place], [address] BASIC METABOLIC Collected: 12/06/2017 Status: F Source: JOSE PROFILE (BMP) 6:25 AM [facility] REPOSITORY Order Comment: ROOM 170 TYPE CODE TESTS RESULT OUT OF RANGE REFERENCE UNITS LAB L501.0100 74-106 mg/dL Normal GLU 87 Result Comment: Please note revised GLUCOSE reference range effective 2017. LAB L501.1000 7-18 mg/dL High BUN 22 LAB L501.1100 0.55-1.02 mg/dL High CREAT,SERUM 1.97 Result Comment: The validity of the calculated GFR AND GFRAA in patients over 70 years has not been determined. Clinical correlation is essential. LAB L501.1110 >60 mL/min Low EST GFR 26 Result Comment: Non- GFR Calc LAB L501.1115 >60 mL/min Low EST GFR - AA 32 Result Comment: GFR Calc LAB L501.1300 10-20 RATIO Normal BUN/CRE 11.2 LAB L501.2200 8.5-10.1 mg/dL Low CA 8.0 LAB L501.5300 136-145 mmol/L NA Normal 140 LAB L501.5600 3.5-5.1 mmol/L K Normal 4.9 LAB L501.5900 98-107 mmol/L CL Normal 103 LAB L501.6100 21.0-32.0 mmol/L Normal CO2 32.0 LAB L501.6200 5-15 Normal GAP 5 Performed By: #### L500.2500 #### [facility] [address] [place], [place], [address] CBC W/DIFF, AUTOMATED Collected: 11/29/2017 Status: F Source: JOSE 5:40 AM [facility] REPOSITORY Order Comment: RM 170 TYPE CODE TESTS RESULT OUT OF RANGE REFERENCE UNITS LAB L100.1000 4.4-11.0 K/mm3 Normal WBC 5.0 LAB L100.1200 4.2-5.4 M/mm3 Low RBC 3.41 LAB L100.1300 12.0-15.0 g/dl Low HGB 10.4 LAB L100.1400 37-47 % Low HCT 34.8 LAB L100.1500 81-99 fL High MCV 102.1 LAB L100.1600 27.0-32.0 pg Normal MCH 30.5 LAB L100.1700 32-36 g/gl Low MCHC 29.9 LAB L100.1810 11.6-14.6 % High RDW CV 15.4 LAB L100.1820 35.1-43.9 fl High RDW SD 56.7 LAB L100.1900 150-450 K/mm3 Low PLT 139 LAB L100.2000 6.2-12.0 fl Normal MPV 11.5 LAB L100.2100 47-70 % Normal NEUT% 59.5 LAB L100.2200 19-41 % Normal LY% 29.4 LAB L100.2300 0-10 % Normal MONO% 6.5 LAB L100.2400 0-5 % Normal EO% 4.4 LAB L100.2500 0-1 % Normal BASO% 0.2 LAB L100.2550 0.0-0.9 % Normal IM GRAN % 0.000 Result Comment: IG% - Immature Granulocytes (promyelocytes, myelocytes and metamyelocytes) > 1% indicates that a LEFT SHIFT is Present. LAB L100.2620 2.0-7.7 X10 3/uL Normal Absolute Neut 3.0 LAB L100.2720 0.83-4.51 X10 3/ul Normal Absolute Lymph 1.48 Performed By: #### L100.0100 #### [facility] [address] [place], [address] BASIC METABOLIC Collected: 11/29/2017 Status: F Source: JOSE PROFILE (BMP) 5:00 AM [facility] REPOSITORY Order Comment: RM 170 TYPE CODE TESTS RESULT OUT OF RANGE REFERENCE UNITS LAB L501.0100 74-106 mg/dL Normal GLU 96 Result Comment: Please note revised GLUCOSE reference range effective 2017. LAB L501.1000 7-18 mg/dL High BUN 23 LAB L501.1100 0.55-1.02 mg/dL High CREAT,SERUM 1.78 Result Comment: The validity of the calculated GFR AND GFRAA in patients over 70 years has not been determined. Clinical correlation is essential. LAB L501.1110 >60 mL/min Low EST GFR 30 Result Comment: Non- GFR Calc LAB L501.1115 >60 mL/min Low EST GFR - AA 36 Result Comment: GFR Calc LAB L501.1300 10-20 RATIO Normal BUN/CRE 12.9 LAB L501.2200 8.5-10.1 mg/dL Low CA 7.8 LAB L501.5300 136-145 mmol/L NA Normal 144 LAB L501.5600 3.5-5.1 mmol/L K Normal 4.2 LAB L501.5900 98-107 mmol/L CL Normal 107 LAB L501.6100 21.0-32.0 mmol/L Normal CO2 31.0 LAB L501.6200 5-15 Normal GAP 6 Performed By: #### L500.2500 #### [facility] [address] [place], [address] URINALYSIS, COMPLETE Collected: 11/29/2017 Status: F Source: JOSE 5:00 AM [facility] REPOSITORY Order Comment: How was Urine Obtained? CLEAN CATCH TYPE CODE TESTS RESULT OUT OF RANGE REFERENCE UNITS LAB L400.3000 Yellow COLOR Normal Yellow LAB L400.3050 Clear Normal CLARITY Sl. Cloudy LAB L400.3200 Normal mg/dl Normal GLUCOSE, UR Normal LAB L400.3300 Negative mg/dL Normal BILIRUBIN URINE Negative LAB L400.3400 Negative mg/dl Normal KETONE UR Negative LAB L400.3465 1.002-1.030 Normal SP.GR. DIPSTX 1.010 LAB L400.3550 5.0 - 8.0 pH UR Normal 8.0 LAB L400.3600 Negative mg/dl High PROT 15 DIPSTX LAB L400.3700 Normal mg/dl Normal UROBILI Normal LAB L400.3750 Negative High NITRITE UR Positive LAB L400.3780 Negative /ul High OCCULT BLOOD-UR 150 LAB L400.3800 Negative /ul High LEUK ESTERASE 500 LAB L400.4050 0-5 /hpf WBC Normal 10-25 SEEN LAB L400.4100 0-5 /hpf 0 Normal RBC-UA SEEN LAB L400.4150 5-10 /hpf SQUAM Normal EPI 0-5 SEEN LAB L400.4300 None Seen /hpf 2+ Normal BACTERIA LAB L400.4350 <or=2+ /hpf 0 Normal MUCUS, URINE SEEN LAB L400.4800 <or=1+ /hpf 3+ Normal TRIPLE PHOS Performed By: #### L400.0001 #### [facility] [address] [place], [address] Observed: 11/29/2017 Status: F Source: JOSE CULTURE, URINE 5:00 AM [facility] REPOSITORY Urine Culture ORGANISM 1: Mixed Gram Pos AND Gram Neg Org [place] Count 50,000-80,000 MIX CULTURE Mixed contaminants. Submit a new specimen if indicated. Performed By: #### M100.0650 #### [facility] [address] [facility] [place], [address] URINALYSIS, COMPLETE Collected: 11/24/2017 Status: F Source: JOSE 9:45 PM [facility] REPOSITORY Order Comment: Comments: CLAMPED TEMPLE How was Urine Obtained? CATHETER SPECIMEN TYPE CODE TESTS RESULT OUT OF RANGE REFERENCE UNITS LAB L400.3000 Yellow COLOR Normal Yellow LAB L400.3050 Clear Normal CLARITY Sl. Cloudy LAB L400.3200 Normal mg/dl Normal GLUCOSE, UR Normal LAB L400.3300 Negative mg/dL Normal BILIRUBIN URINE Negative LAB L400.3400 Negative mg/dl Normal KETONE UR Negative LAB L400.3465 1.002-1.030 Normal SP.GR. DIPSTX 1.015 LAB L400.3550 5.0 - 8.0 pH UR Normal 9.0 LAB L400.3600 Negative mg/dl High PROT 30 DIPSTX LAB L400.3700 Normal mg/dl Normal UROBILI Normal LAB L400.3750 Negative High NITRITE UR Positive LAB L400.3780 Negative /ul High 25 OCCULT BLOOD-UR LAB L400.3800 Negative /ul High LEUK ESTERASE 500 LAB L400.4050 0-5 /hpf WBC Normal 25-50 SEEN LAB L400.4100 0-5 /hpf Normal RBC-UA 0-5 SEEN LAB L400.4150 5-10 /hpf SQUAM Normal EPI 0-5 SEEN LAB L400.4300 None Seen /hpf 2+ Normal BACTERIA LAB L400.4350 <or=2+ /hpf 0 Normal MUCUS, URINE SEEN LAB L400.4800 <or=1+ /hpf 2+ Normal TRIPLE PHOS Performed By: #### L400.0001 #### [facility] [address] [facility] [place], [place], [id number] Observed: 11/24/2017 Status: F Source: [place] CULTURE, URINE 9:45 PM [facility] REPOSITORY Urine Culture ORGANISM 1: Proteus mirabilis [place] Count >100,000 Proteus mirabilis: REACTION Amoxacillin/Clavulanic Acid $ <=2 S Ampicillin $ >=32 R Ampicillin/Sulbactam $ 8 S Cefazolin $ <=4 S Cefepime $ <=1 S Ceftriaxone $ <=1 S Ciprofloxacin $ >=4 R Ertapenim $$$ <=0.5 S Gentamicin $ <=1 S Levofloxacin $ >=8 R Nitrofurantoin $ 128 R Piperacillin/Tazobactam $$ <=4 S Tobramycin $ <=1 S Trimethoprim/Sulfametho $ >=320 R (NF) indicates non-formulary drug at [facility]. Approval by Infectious Disease Specialist required before non-formulary drugs may be ordered and/or dispensed. Performed By: #### M100.0650 #### [facility] [address] [facility] [place], [place], [id number] CBC W/DIFF, AUTOMATED Collected: 11/22/2017 Status: F Source: [place] 5:35 AM [facility] REPOSITORY Order Comment: ROOM 170 TYPE CODE TESTS RESULT OUT OF RANGE REFERENCE UNITS LAB L100.1000 4.4-11.0 K/mm3 Normal WBC 6.0 LAB L100.1200 4.2-5.4 M/mm3 Low RBC 3.33 LAB L100.1300 12.0-15.0 g/dl Low HGB 10.0 LAB L100.1400 37-47 % Low HCT 33.7 LAB L100.1500 81-99 fL High MCV 101.2 LAB L100.1600 27.0-32.0 pg Normal MCH 30.0 LAB L100.1700 32-36 g/gl Low MCHC 29.7 LAB L100.1810 11.6-14.6 % High RDW CV 15.9 LAB L100.1820 35.1-43.9 fl High RDW SD 57.1 LAB L100.1900 150-450 K/mm3 Normal PLT 150 LAB L100.2000 6.2-12.0 fl Normal MPV 11.3 LAB L100.2100 47-70 % Normal NEUT% 60.7 LAB L100.2200 19-41 % Normal LY% 28.9 LAB L100.2300 0-10 % Normal MONO% 7.2 LAB L100.2400 0-5 % Normal EO% 3.0 LAB L100.2500 0-1 % Normal BASO% 0.2 LAB L100.2550 0.0-0.9 % Normal IM GRAN % 0.000 Result Comment: IG% - Immature Granulocytes (promyelocytes, myelocytes and metamyelocytes) > 1% indicates that a LEFT SHIFT is Present. LAB L100.2620 2.0-7.7 X10 3/uL Normal Absolute Neut 3.6 LAB L100.2720 0.83-4.51 X10 3/ul Normal Absolute Lymph 1.72 Performed By: #### L100.0100 #### [facility] [address] [place], [address] BASIC METABOLIC Collected: 11/22/2017 Status: F Source: [place] PROFILE ([facility]) 5:35 AM [facility] REPOSITORY Order Comment: ROOM 170 TYPE CODE TESTS RESULT OUT OF RANGE REFERENCE UNITS LAB L501.0100 74-106 mg/dL Normal GLU 100 Result Comment: Fasting Glucose result from 100 to 125 mg/dL suggests IMPAIRED HOMEOSTASIS per A.D.A. criteria. Please note revised GLUCOSE reference range effective 2017. LAB L501.1000 7-18 mg/dL High BUN 26 LAB L501.1100 0.55-1.02 mg/dL High CREAT,SERUM 1.33 Result Comment: The validity of the calculated GFR AND GFRAA in patients over 70 years has not been determined. Clinical correlation is essential. LAB L501.1110 >60 mL/min Low EST GFR 42 Result Comment: Non- GFR Calc LAB L501.1115 >60 mL/min Low EST GFR - AA 50 Result Comment: GFR Calc LAB L501.1300 10-20 RATIO Normal BUN/CRE 19.5 LAB L501.2200 8.5-10.1 mg/dL Low CA 7.2 LAB L501.5300 136-145 mmol/L NA Normal 143 LAB L501.5600 3.5-5.1 mmol/L K Normal 3.9 LAB L501.5900 98-107 mmol/L CL Normal 107 LAB L501.6100 21.0-32.0 mmol/L Normal CO2 32.0 LAB L501.6200 5-15 Low GAP 4 Performed By: #### L500.2500 #### [facility] [address] [place], [address] CBC W/DIFF, AUTOMATED Collected: 2017 Status: F Source: [place] 6:30 AM [facility] REPOSITORY Order Comment: 170 TYPE CODE TESTS RESULT OUT OF RANGE REFERENCE UNITS LAB L100.1000 4.4-11.0 K/mm3 Normal WBC 4.5 LAB L100.1200 4.2-5.4 M/mm3 Low RBC 3.12 LAB L100.1300 12.0-15.0 g/dl Low HGB 9.4 LAB L100.1400 37-47 % Low HCT 32.2 LAB L100.1500 81-99 fL High MCV 103.2 LAB L100.1600 27.0-32.0 pg Normal MCH 30.1 LAB L100.1700 32-36 g/gl Low MCHC 29.2 LAB L100.1810 11.6-14.6 % High RDW CV 16.3 LAB L100.1820 35.1-43.9 fl High RDW SD 60.3 LAB L100.1900 150-450 K/mm3 Low PLT 128 LAB L100.2000 6.2-12.0 fl Normal MPV 10.9 LAB L100.2100 47-70 % Normal NEUT% 58.1 LAB L100.2200 19-41 % Normal LY% 30.2 LAB L100.2300 0-10 % Normal MONO% 7.8 LAB L100.2400 0-5 % Normal EO% 3.5 LAB L100.2500 0-1 % Normal BASO% 0.2 LAB L100.2550 0.0-0.9 % Normal IM GRAN % 0.200 Result Comment: IG% - Immature Granulocytes (promyelocytes, myelocytes and metamyelocytes) > 1% indicates that a LEFT SHIFT is Present. LAB L100.2620 2.0-7.7 X10 3/uL Normal Absolute Neut 2.6 LAB L100.2720 0.83-4.51 X10 3/ul Normal Absolute Lymph 1.36 Performed By: #### L100.0100 #### [facility] [address] [place], [address] BASIC METABOLIC Collected: 2017 Status: F Source: LUZER[place] PROFILE (BMP) 6:30 AM [facility] REPOSITORY Order Comment: 170 TYPE CODE TESTS RESULT OUT OF RANGE REFERENCE UNITS LAB L501.0100 74-106 mg/dL Normal GLU 103 Result Comment: Fasting Glucose result from 100 to 125 mg/dL suggests IMPAIRED HOMEOSTASIS per A.D.A. criteria. Please note revised GLUCOSE reference range effective 2017. LAB L501.1000 7-18 mg/dL High BUN 30 LAB L501.1100 0.55-1.02 mg/dL High CREAT,SERUM 1.20 Result Comment: The validity of the calculated GFR AND GFRAA in patients over 70 years has not been determined. Clinical correlation is essential. LAB L501.1110 >60 mL/min Low EST GFR 47 Result Comment: Non- GFR Calc LAB L501.1115 >60 mL/min Low EST GFR - AA 57 Result Comment: GFR Calc LAB L501.1300 10-20 RATIO High BUN/CRE 25.0 LAB L501.2200 8.5-10.1 mg/dL Low CA 7.5 LAB L501.5300 136-145 mmol/L High NA 146 LAB L501.5600 3.5-5.1 mmol/L K Normal 4.0 LAB L501.5900 98-107 mmol/L CL Normal 107 LAB L501.6100 21.0-32.0 mmol/L High CO2 34.0 LAB L501.6200 5-15 Normal GAP 5 Performed By: #### L500.2500 #### [facility] [address] [place], [address] CBC W/DIFF, AUTOMATED Collected: 11/08/2017 Status: F Source: JOSE 6:15 AM [facility] REPOS[facility] Order Comment: ROOM 170 TYPE CODE TESTS RESULT OUT OF RANGE REFERENCE UNITS LAB L100.1000 4.4-11.0 K/mm3 Normal WBC 4.8 LAB L100.1200 4.2-5.4 M/mm3 Low RBC 3.23 LAB L100.1300 12.0-15.0 g/dl Low HGB 9.6 LAB L100.1400 37-47 % Low HCT 33.2 LAB L100.1500 81-99 fL High MCV 102.8 LAB L100.1600 27.0-32.0 pg Normal MCH 29.7 LAB L100.1700 32-36 g/gl Low MCHC 28.9 LAB L100.1810 11.6-14.6 % High RDW CV 17.0 LAB L100.1820 35.1-43.9 fl High RDW SD 62.6 LAB L100.1900 150-450 K/mm3 Low PLT 127 LAB L100.2000 6.2-12.0 fl Normal MPV 11.8 LAB L100.2100 47-70 % Normal NEUT% 57.7 LAB L100.2200 19-41 % Normal LY% 31.5 LAB L100.2300 0-10 % Normal MONO% 7.1 LAB L100.2400 0-5 % Normal EO% 3.1 LAB L100.2500 0-1 % Normal BASO% 0.4 LAB L100.2550 0.0-0.9 % Normal IM GRAN % 0.200 Result Comment: IG% - Immature Granulocytes (promyelocytes, myelocytes and metamyelocytes) > 1% indicates that a LEFT SHIFT is Present. LAB L100.2620 2.0-7.7 X10 3/uL Normal Absolute Neut 2.8 LAB L100.2720 0.83-4.51 X10 3/ul Normal Absolute Lymph 1.51 Performed By: #### L100.0100 #### [facility] [address] [place], [place], [address] BASIC METABOLIC Collected: 11/08/2017 Status: F Source: JOSE PROFILE (BMP) 6:15 AM [facility]POS[facility] Order Comment: ROOM 170 TYPE CODE TESTS RESULT OUT OF RANGE REFERENCE UNITS LAB L501.0100 74-106 mg/dL Normal GLU 91 Result Comment: Please note revised GLUCOSE reference range effective 2017. LAB L501.1000 7-18 mg/dL High BUN 29 LAB L501.1100 0.55-1.02 mg/dL High CREAT,SERUM 1.08 Result Comment: The validity of the calculated GFR AND GFRAA in patients over 70 years has not been determined. Clinical correlation is essential. LAB L501.1110 >60 mL/min Low EST GFR 53 Result Comment: Non- GFR Calc LAB L501.1115 >60 mL/min Normal EST GFR - AA 64 Result Comment: GFR Calc LAB L501.1300 10-20 RATIO High BUN/CRE 26.9 LAB L501.2200 8.5-10.1 mg/dL Low CA 7.5 LAB L501.5300 136-145 mmol/L NA Normal 145 LAB L501.5600 3.5-5.1 mmol/L K Normal 4.3 LAB L501.5900 98-107 mmol/L CL Normal 107 LAB L501.6100 21.0-32.0 mmol/L High CO2 35.0 LAB L501.6200 5-15 Low GAP 3 Performed By: #### L500.2500 #### [facility] [address] [place], [address] CBC W/DIFF, AUTOMATED Collected: 11/01/2017 Status: F Source: JOSE 7:10 AM [facility] Order Comment: RM:170 TYPE CODE TESTS RESULT OUT OF RANGE REFERENCE UNITS LAB L100.1000 4.4-11.0 K/mm3 Normal WBC 5.5 LAB L100.1200 4.2-5.4 M/mm3 Low RBC 3.27 LAB L100.1300 12.0-15.0 g/dl Low HGB 9.9 LAB L100.1400 37-47 % Low HCT 33.4 LAB L100.1500 81-99 fL High MCV 102.1 LAB L100.1600 27.0-32.0 pg Normal MCH 30.3 LAB L100.1700 32-36 g/gl Low MCHC 29.6 LAB L100.1810 11.6-14.6 % High RDW CV 17.2 LAB L100.1820 35.1-43.9 fl High RDW SD 62.0 LAB L100.1900 150-450 K/mm3 Normal PLT 157 LAB L100.2000 6.2-12.0 fl Normal MPV 11.2 LAB L100.2100 47-70 % Normal NEUT% 67.1 LAB L100.2200 19-41 % Normal LY% 23.3 LAB L100.2300 0-10 % Normal MONO% 5.9 LAB L100.2400 0-5 % Normal EO% 3.3 LAB L100.2500 0-1 % Normal BASO% 0.2 LAB L100.2550 0.0-0.9 % Normal IM GRAN % 0.200 Result Comment: IG% - Immature Granulocytes (promyelocytes, myelocytes and metamyelocytes) > 1% indicates that a LEFT SHIFT is Present. LAB L100.2620 2.0-7.7 X10 3/uL Normal Absolute Neut 3.7 LAB L100.2720 0.83-4.51 X10 3/ul Normal Absolute Lymph 1.27 Performed By: #### L100.0100 #### [facility] [address] [place] [address]. [place], [address] BASIC METABOLIC Collected: 11/01/2017 Status: F Source: LUZERNE PROFILE (BMP) 7:10 AM [facility] Order Comment: RM:170 TYPE CODE TESTS RESULT OUT OF RANGE REFERENCE UNITS LAB L501.0100 74-106 mg/dL Normal GLU 98 Result Comment: Please note revised GLUCOSE reference range effective 2017. LAB L501.1000 7-18 mg/dL High BUN 35 LAB L501.1100 0.55-1.02 mg/dL High CREAT,SERUM 1.29 Result Comment: The validity of the calculated GFR AND GFRAA in patients over 70 years has not been determined. Clinical correlation is essential. LAB L501.1110 >60 mL/min Low EST GFR 43 Result Comment: Non- GFR Calc LAB L501.1115 >60 mL/min Low EST GFR - AA 52 Result Comment: GFR Calc LAB L501.1300 10-20 RATIO High BUN/CRE 27.1 LAB L501.2200 8.5-10.1 mg/dL Low CA 7.6 LAB L501.5300 136-145 mmol/L NA Normal 142 LAB L501.5600 3.5-5.1 mmol/L K Normal 4.1 Result Comment: Slight Hemolysis, Result may be falsely increased. LAB L501.5900 98-107 mmol/L Normal CL 105 LAB L501.6100 21.0-32.0 mmol/L Normal CO2 32.0 LAB L501.6200 5-15 Normal 5 GAP Performed By: #### L500.2500 #### [facility] [address] [place], [address] BASIC METABOLIC Collected: 10/24/2017 Status: F Source: LUZERNE PROFILE (BMP) 5:17 AM [facility] Order Comment: ROOM 170 TYPE CODE TESTS RESULT OUT OF RANGE REFERENCE UNITS LAB L501.0100 74-106 mg/dL Normal GLU 103 Result Comment: Fasting Glucose result from 100 to 125 mg/dL suggests IMPAIRED HOMEOSTASIS per A.D.A. criteria. Please note revised GLUCOSE reference range effective 2017. LAB L501.1000 7-18 mg/dL High BUN 27 LAB L501.1100 0.55-1.02 mg/dL Normal CREAT,SERUM 1.02 Result Comment: The validity of the calculated GFR AND GFRAA in patients over 70 years has not been determined. Clinical correlation is essential. LAB L501.1110 >60 mL/min Low EST GFR 57 Result Comment: Non- GFR Calc LAB L501.1115 >60 mL/min Normal EST GFR - AA 68 Result Comment: GFR Calc LAB L501.1300 10-20 RATIO High BUN/CRE 26.5 LAB L501.2200 8.5-10.1 mg/dL Low CA 7.6 LAB L501.5300 136-145 mmol/L High NA 147 LAB L501.5600 3.5-5.1 mmol/L Low K 3.3 LAB L501.5900 98-107 mmol/L High CL 108 LAB L501.6100 21.0-32.0 mmol/L Normal CO2 30.0 LAB L501.6200 5-15 Normal GAP 9 Performed By: #### L500.2500 #### [facility] [address], [address] CBC W/DIFF, AUTOMATED Collected: 10/24/2017 Status: F Source: JOSE 5:17 AM [facility] REPOSITORY Order Comment: ROOM 170 TYPE CODE TESTS RESULT OUT OF RANGE REFERENCE UNITS LAB L100.1000 4.4-11.0 K/mm3 Normal WBC 7.4 LAB L100.1200 4.2-5.4 M/mm3 Low RBC 3.29 LAB L100.1300 12.0-15.0 g/dl Low HGB 9.9 LAB L100.1400 37-47 % Low HCT 33.6 LAB L100.1500 81-99 fL High MCV 102.1 LAB L100.1600 27.0-32.0 pg Normal MCH 30.1 LAB L100.1700 32-36 g/gl Low MCHC 29.5 LAB L100.1810 11.6-14.6 % High RDW CV 17.7 LAB L100.1820 35.1-43.9 fl High RDW SD 62.7 LAB L100.1900 150-450 K/mm3 Low PLT 143 LAB L100.2000 6.2-12.0 fl Normal MPV 10.9 LAB L100.2100 47-70 % Normal NEUT% 68.8 LAB L100.2200 19-41 % Normal LY% 21.5 LAB L100.2300 0-10 % Normal MONO% 4.9 LAB L100.2400 0-5 % Normal EO% 4.6 LAB L100.2500 0-1 % Normal BASO% 0.1 LAB L100.2550 0.0-0.9 % Normal IM GRAN % 0.100 Result Comment: IG% - Immature Granulocytes (promyelocytes, myelocytes and metamyelocytes) > 1% indicates that a LEFT SHIFT is Present. LAB L100.2620 2.0-7.7 X10 3/uL Normal Absolute Neut 5.1 LAB L100.2720 0.83-4.51 X10 3/ul Normal Absolute Lymph 1.59 Performed By: #### L100.0100 #### [facility] [address] [place], [address] BASIC METABOLIC Collected: 10/19/2017 Status: F Source: JOSE PROFILE (BMP) 5:40 AM [facility] REPOSITORY TYPE CODE TESTS RESULT OUT OF RANGE REFERENCE UNITS LAB L501.0100 74-106 mg/dL High GLU 119 Result Comment: Fasting Glucose result from 100 to 125 mg/dL suggests IMPAIRED HOMEOSTASIS per A.D.A. criteria. Please note revised GLUCOSE reference range effective 2017. LAB L501.1000 7-18 mg/dL High BUN 27 LAB L501.1100 0.55-1.02 mg/dL High CREAT,SERUM 1.24 Result Comment: The validity of the calculated GFR AND GFRAA in patients over 70 years has not been determined. Clinical correlation is essential. LAB L501.1110 >60 mL/min Low EST GFR 45 Result Comment: Non- GFR Calc LAB L501.1115 >60 mL/min Low EST GFR - AA 55 Result Comment: GFR Calc LAB L501.1300 10-20 RATIO High BUN/CRE 21.8 LAB L501.2200 8.5-10.1 mg/dL Low CA 7.8 LAB L501.5300 136-145 mmol/L High NA 146 LAB L501.5600 3.5-5.1 mmol/L K Normal 4.7 LAB L501.5900 98-107 mmol/L High CL 110 LAB L501.6100 21.0-32.0 mmol/L Normal CO2 29.0 LAB L501.6200 5-15 Normal GAP 7 Performed By: #### L500.2500 #### [facility] [address] [place], [address] CBC W/DIFF, AUTOMATED Collected: 10/19/2017 Status: F Source: JOSE 5:40 AM [facility] REPOSITORY TYPE CODE TESTS RESULT OUT OF RANGE REFERENCE UNITS LAB L100.1000 4.4-11.0 K/mm3 Normal WBC 6.0 LAB L100.1200 4.2-5.4 M/mm3 Low RBC 3.15 LAB L100.1300 12.0-15.0 g/dl Low HGB 9.3 LAB L100.1400 37-47 % Low HCT 31.9 LAB L100.1500 81-99 fL High MCV 101.3 LAB L100.1600 27.0-32.0 pg Normal MCH 29.5 LAB L100.1700 32-36 g/gl Low MCHC 29.2 LAB L100.1810 11.6-14.6 % High RDW CV 17.3 LAB L100.1820 35.1-43.9 fl High RDW SD 61.6 LAB L100.1900 150-450 K/mm3 Low PLT 134 LAB L100.2000 6.2-12.0 fl Normal MPV 9.8 LAB L100.2100 47-70 % Normal NEUT% 62.5 LAB L100.2200 19-41 % Normal LY% 22.9 LAB L100.2300 0-10 % Normal MONO% 8.3 LAB L100.2400 0-5 % High EO% 5.8 LAB L100.2500 0-1 % Normal BASO% 0.3 LAB L100.2550 0.0-0.9 % Normal IM GRAN % 0.200 Result Comment: IG% - Immature Granulocytes (promyelocytes, myelocytes and metamyelocytes) > 1% indicates that a LEFT SHIFT is Present. LAB L100.2620 2.0-7.7 X10 3/uL Normal Absolute Neut 3.8 LAB L100.2720 0.83-4.51 X10 3/ul Normal Absolute Lymph 1.38 Performed By: #### L100.0100 #### [facility] [address] [place], [place], [address] URINALYSIS, COMPLETE Collected: 10/13/2017 Status: F Source: LUZERNE 12:00 AM [facility] REPOSITORY Order Comment: How was Urine Obtained? CATHETER SPECIMEN TYPE CODE TESTS RESULT OUT OF RANGE REFERENCE UNITS LAB L400.3000 Yellow COLOR Normal Yellow LAB L400.3050 Clear Normal CLARITY Sl. Cloudy LAB L400.3200 Normal mg/dl Normal GLUCOSE, UR Normal LAB L400.3300 Negative mg/dL Normal BILIRUBIN URINE Negative LAB L400.3400 Negative mg/dl Normal KETONE UR Negative LAB L400.3465 1.002-1.030 Normal SP.GR. DIPSTX 1.010 LAB L400.3550 5.0 - 8.0 pH UR Normal 6.0 LAB L400.3600 Negative mg/dl High PROT 30 DIPSTX LAB L400.3700 Normal mg/dl Normal UROBILI Normal LAB L400.3750 Negative Normal NITRITE UR Negative LAB L400.3780 Negative /ul High OCCULT BLOOD-UR 250 LAB L400.3800 Negative /ul High LEUK ESTERASE 100 LAB L400.4050 0-5 /hpf WBC Normal 5-10 SEEN LAB L400.4100 0-5 /hpf > Normal RBC-UA 100 SEEN LAB L400.4150 5-10 /hpf SQUAM 0 Normal EPI SEEN LAB L400.4300 None Seen /hpf 0 Normal BACTERIA SEEN LAB L400.4350 <or=2+ /hpf 0 Normal MUCUS, URINE SEEN Performed By: #### L400.0001 #### [facility] [address] [place], [place], [address] Observed: 10/13/2017 Status: F Source: JOSE CULTURE, URINE 12:00 AM [facility] REPOSITORY Urine Culture There are no CLSI standards for interpretation of this Drug/Organism combination. ORGANISM 1: Enterococcus raffinosus [place] Count 25,000-50,000 Performed By: #### M100.0650 #### [facility] [address] [place], [address] CBC W/DIFF, AUTOMATED Collected: 10/10/2017 Status: F Source: JOSE 5:35 AM [facility] REPOSITORY Order Comment: ROOM 170 TYPE CODE TESTS RESULT OUT OF RANGE REFERENCE UNITS LAB L100.1000 4.4-11.0 K/mm3 Normal WBC 5.6 LAB L100.1200 4.2-5.4 M/mm3 Low RBC 3.40 LAB L100.1300 12.0-15.0 g/dl Low HGB 10.0 LAB L100.1400 37-47 % Low HCT 33.5 LAB L100.1500 81-99 fL Normal MCV 98.5 LAB L100.1600 27.0-32.0 pg Normal MCH 29.4 LAB L100.1700 32-36 g/gl Low MCHC 29.9 LAB L100.1810 11.6-14.6 % High RDW CV 14.9 LAB L100.1820 35.1-43.9 fl High RDW SD 49.7 LAB L100.1900 150-450 K/mm3 Normal PLT 226 LAB L100.2000 6.2-12.0 fl Normal MPV 10.0 LAB L100.2100 47-70 % Normal NEUT% 56.3 LAB L100.2200 19-41 % Normal LY% 32.1 LAB L100.2300 0-10 % Normal MONO% 5.7 LAB L100.2400 0-5 % Normal EO% 3.9 LAB L100.2500 0-1 % Normal BASO% 0.4 LAB L100.2550 0.0-0.9 % High IM GRAN % 1.600 Result Comment: IG% - Immature Granulocytes (promyelocytes, myelocytes and metamyelocytes) > 1% indicates that a LEFT SHIFT is Present. LAB L100.2620 2.0-7.7 X10 3/uL Normal Absolute Neut 3.1 LAB L100.2720 0.83-4.51 X10 3/ul Normal Absolute Lymph 1.79 Performed By: #### L100.0100 #### [facility] [address] [facility] [place], [place], [address] BASIC METABOLIC Collected: 10/10/2017 Status: F Source: JOSE PROFILE (BMP) 5:35 AM [facility] REPOSITORY Order Comment: ROOM 170 TYPE CODE TESTS RESULT OUT OF RANGE REFERENCE UNITS LAB L501.0100 74-106 mg/dL High GLU 128 Result Comment: Fasting Glucose result greater than or equal to 126 mg/dL suggests DIABETES MELLITUS per A.D.A. criteria. Please note revised GLUCOSE reference range effective 2017. LAB L501.1000 7-18 mg/dL High BUN 32 LAB L501.1100 0.55-1.02 mg/dL High CREAT,SERUM 1.71 Result Comment: The validity of the calculated GFR AND GFRAA in patients over 70 years has not been determined. Clinical correlation is essential. LAB L501.1110 >60 mL/min Low EST GFR 31 Result Comment: Non- GFR Calc LAB L501.1115 >60 mL/min Low EST GFR - AA 38 Result Comment: GFR Calc LAB L501.1300 10-20 RATIO Normal BUN/CRE 18.7 LAB L501.2200 8.5-10.1 mg/dL Low CA 7.1 LAB L501.5300 136-145 mmol/L NA Normal 140 LAB L501.5600 3.5-5.1 mmol/L K Normal 3.9 LAB L501.5900 98-107 mmol/L High CL 111 LAB L501.6100 21.0-32.0 mmol/L Low CO2 20.0 LAB L501.6200 5-15 Normal GAP 9 Performed By: #### L500.2500, L501.9520 #### [facility] [address] [place], [place], [address] THYROID STIM HORMONE Collected: 10/10/2017 Status: F Source: JOSE (TSH) 5:35 AM [facility] REPOSITORY Order Comment: ROOM 170 TYPE CODE TESTS RESULT OUT OF RANGE REFERENCE UNITS LAB L501.9520 0.358-3.74 uIU/mL High TSH 7.24 Performed By: #### L500.2500, L501.9520 #### [facility] [address] [place], [place], [address] VITAMIN D,25 HYDROXY Collected: 10/10/2017 Status: F Source: JOSE 5:35 AM [facility] REPOSITORY Order Comment: ROOM 170 TYPE CODE TESTS RESULT OUT OF REFERENCE UNITS RANGE LAB L506.1000 29.95-100.01 ng/mL Low Vitamin D 20.9 25-OH Result Comment: Vitamin D 25(OH) Status Range Deficiency <20 ng/mL (50nmol/L) Insuffciency 20 - 30 ng/mL (50 - 75 nmol/L) Sufficiency 30 - 100 ng/mL (75 - 250 nmol/L) Toxicity >100 ng/mL (>250 nmol/L) Performed By: #### L506.1000 #### [facility] [address] [place], [address] CBC W/DIFF, AUTOMATED Collected: 10/07/2017 Status: F Source: JOSE 4:29 PM [facility] REPOSITORY TYPE CODE TESTS RESULT OUT OF RANGE REFERENCE UNITS LAB L100.1000 4.4-11.0 K/mm3 Low WBC 4.2 LAB L100.1200 4.2-5.4 M/mm3 Low RBC 3.15 LAB L100.1300 12.0-15.0 g/dl Low HGB 9.3 LAB L100.1400 37-47 % Low HCT 30.4 LAB L100.1500 81-99 fL Normal MCV 96.5 LAB L100.1600 27.0-32.0 pg Normal MCH 29.5 LAB L100.1700 32-36 g/gl Low MCHC 30.6 LAB L100.1810 11.6-14.6 % Normal RDW CV 14.2 LAB L100.1820 35.1-43.9 fl High RDW SD 46.5 LAB L100.1900 150-450 K/mm3 Normal PLT 184 LAB L100.2000 6.2-12.0 fl Normal MPV 10.0 LAB L100.2100 47-70 % Normal NEUT% 68.7 LAB L100.2200 19-41 % Low LY% 15.4 LAB L100.2300 0-10 % Normal MONO% 6.4 LAB L100.2400 0-5 % High EO% 8.1 LAB L100.2500 0-1 % Normal BASO% 0.5 LAB L100.2550 0.0-0.9 % Normal IM GRAN % 0.900 Result Comment: IG% - Immature Granulocytes (promyelocytes, myelocytes and metamyelocytes) > 1% indicates that a LEFT SHIFT is Present. LAB L100.2620 2.0-7.7 X10 3/uL Normal Absolute Neut 2.9 LAB L100.2720 0.83-4.51 X10 3/ul Low Absolute Lymph 0.65 Performed By: #### L100.0100 #### [facility] [address] [facility] [place], [address] DISCHARGE SUMMARY Observed: 10/06/2017 Status: F Source: LUZERNE 4:34 PM [facility] REPOSITORY [facility] Medical Records Department [address] [place] [address] Discharge Summary 10/06/17 1543 MR#: [id number] Acct: [id number] Name: CHA CALIX Rep #: [id number] : 1945 71 From: Steven NIX PCP: Anyi Zamora, USED CAR SALESPERSON-C Status: DIS IN Y Location: [facility] [id number] <Steven Holder - Last Filed: 10/06/17 15:44> Discharge Date and Diagnosis Date of Admission: 10/04/17 Date of Discharge: 10/06/17 - Primary Discharge Diagnosis Active and Suspected Problems UTI (urinary tract infection) (Acute) with failed outpatient therapy, citrobacter, klebsiella, catheter associated DMt2 with Hypoglycemia (Acute) Nonhealing stage III-IV sacral pressure injury present on admission physical debility intertrigo HLD Obesity CKD III Chronic normocytic anemia - Secondary Discharge Diagnosis Chronic Problems Decubitus ulcer (Chronic) Debility (Chronic) Dysphagia (Chronic) CKD (chronic kidney disease), stage III (Chronic) DM type 2 (diabetes mellitus, type 2) (Chronic) Gout (Chronic) Morbid obesity (Chronic) Psoriasis (Chronic) Rosacea (Chronic) CAD (coronary artery disease) (Chronic) Fibromyalgia (Chronic) Spastic paraparesis (Chronic) Skin excoriation (Chronic) secondary to fungal skin infection UTI (urinary tract infection) (Chronic) Candidal intertrigo (Chronic) Decubitus ulcer (Chronic) Hospital Course and Treatment Consultations 10/04/17 17:33 Consult: Onc/Wound/employee representative Routine Comment: Operations: None Procedures: None Summary of Care Provided: Physical exam on day of discharge: General: Resting comfortably NAD Psych: A/Ox3 normal affect HEENT: PEARRLA AT NC Neck: Supple NT CV: RRR no m/t/r/g/h Resp: CTA Abd: [id number] Soft NT no guarding or rigidity, obesity Ext: DP2+= no edema Skin: W/D normal turgor Lymph/Heme: No active bleeding or adenopathy Neuro: CN2-12 intact Hospital course: The patient is a 71 year old F with a hx of chronic sacral pressure injury, DMt2, UTIs, temple catheter, obesity, CAD, CKDIII, who presented to the ER with worsening of chronic sacral ulcer. In the ER she was hypoglycemic with a blood sugar of 42 and it was found that she has these episodes and her gives her juice but also gives her lantus despite being low. She had also recently been diagnosed with a UTI which was treated with bactrim. She was admitted and placed on meropenem for UTI. Her previous cultures showed citrobacter youngae and klebsiella which were resistant to bactrim. She stated the reason for her indwelling catheter as being because she was in bed all the time and not able to get up at home. Given her nonhealing wounds would likely be beneficial for her to continue the catheter while they heal. As far as her wounds, her was only changing the dressings 3 times a week. She was seen by wound care while here who recommended daily wound dressing changes. She is very debilitated and seen by PT and OT, and shelter was recommended. As far as her hypoglycemia, she was placed on a sliding scale insulin, and Lantus was discontinued. She had fair control of her blood sugar while here. She was discharged to shelter in stable condition. For discharge I recommend that she continue the sliding scale insulin with Accu-Cheks. For now we will hold off of Lantus, if she starts to trend upward this can be restarted at a lower dose. As far as her UTI, she was placed on cefdinir as the bacteria were both sensitive to Rocephin, she will have a total of 7 days of therapy. She needs to have her Temple intermittently changed if she is to keep it long-term. She will need to [facility]. Wound cultures show rare GP and GNR. She will need to follow-up with her PCP in 2 weeks. She does have significant chronic anemia and chronic kidney disease, and will need periodic monitoring of her CBC and BMP. This patient was seen by Steven Holder PA-C under the supervision of Doctor Sousa. [] Discharge Diet: Low fat/ Low Cholesterol, 1800 Calorie Control Diet, 2000 mg Sodium Diet Discharge Activity: Return to Normal Activity Home Medications: Medications to take at Discharge Levothyroxine [Synthroid] 88 mcg PO DAILY 01/21/16 Nystatin Powder [Mycostatin Powder] 1 applic TOPICAL .COMPLEX 11/22/16 traZODone [Desyrel] 100 mg PO QHS PRN 11/22/16 Aspirin [Aspirin EC] 81 mg PO DAILY 09/28/17 Atorvastatin Calcium 10 mg PO QHS 09/28/17 Citalopram Hydrobromide [Citalopram HBr] 40 mg PO DAILY 09/28/17 Diphenoxylate HCl/Atropine [Lomotil 2.5-0.025 mg Tablet] 2 tab PO Q6H PRN PRN 09/28/17 Ergocalciferol [Vitamin D] 50,000 unit PO MO 09/28/17 Furosemide [Lasix] 40 mg PO DAILY 09/28/17 Gabapentin [Neurontin] 300 mg PO BIDCM 09/28/17 Menthol/Lanolin/Calamine/Znox [Calmoseptine Ointment] 1 applic TOPICAL .COMPLEX 09/28/17 Multivitamins,Therapeutic [Multivitamin] 1 tablet PO DAILY 09/28/17 Zinc Sulfate (50mg elemental) [Zinc Sulfate] 220 mg PO DAILY 09/28/17 Cefdinir [Omnicef [equiv]] 300 mg PO Q12H #11 capsule 10/06/17 Glucerna Shake 120 ml PO 4X/DAY liquid 10/06/17 Hydrocodone/Acetaminophen [Hydrocodone-Acetamin 7.5-325] 1 tab PO Q8H PRN PRN #9 tab 10/06/17 Insulin Lispro [Humalog KwikPen] See Protocol SC ACHS insuln.pen 10/06/17 Magnesium Hydroxide [Milk Of Magnesia] 30 ml PO DAILY PRN udc 10/06/17 Following Prescrptions Were Given to Patient: Cefdinir [Omnicef [equiv]] 300 mg PO Q12H #11 capsule Hydrocodone/Acetaminophen [Hydrocodone-Acetamin 7.5-325] 1 tab PO Q8H PRN PRN #9 tab PRN Reason: Pain Primary Care Physician: Anyi Zamora USED CAR SALESPERSON-C [Primary Care Provider] - Please follow up with your Primary Care Physician in: 2 weeks Disposition: Prison facility Minutes spent on discharge:: 35 Patient Condition:: Stable Medical Necessity - Tobacco Use Smoking Status: Former smoker Tobacco Use: Cigarettes Meaningful Use Info Meaningful Use Diagnoses (Choose all that apply): None applicable <Santos Sousa - Last Filed: 10/06/17 16:34> Discharge Date and Diagnosis - Secondary Discharge Diagnosis Chronic Problems Decubitus ulcer (Chronic) Debility (Chronic) Dysphagia (Chronic) CKD (chronic kidney disease), stage III (Chronic) DM type 2 (diabetes mellitus, type 2) (Chronic) Gout (Chronic) Morbid obesity (Chronic) Psoriasis (Chronic) Rosacea (Chronic) CAD (coronary artery disease) (Chronic) Fibromyalgia (Chronic) Spastic paraparesis (Chronic) Skin excoriation (Chronic) secondary to fungal skin infection UTI (urinary tract infection) (Chronic) Candidal intertrigo (Chronic) Decubitus ulcer (Chronic) Hospital Course and Treatment Consultations 10/04/17 17:33 Consult: Onc/Wound/employee representative Routine Comment: Summary of Care Provided: Addendum: Dr. Sousa I personally examined the patient and reviewed the chart. I agree with the above. She will need to have a discussion with palliative care and her to determine the best course of action. Given her current condition and her quality of life and the extent of her co-morbidities, she may need hospice before long. C/w with cefdinir, and most importantly, wound care as her is unable to care for her at home. Code Visit Inpatient E AND M: [id number] Disch Hosp 10/06/17 1556 <Electronically signed by Steven NIX> Date Steven NIX 10/06/17 1634<Electronically signed by Santos Sousa MD> Cosigner Signature (if applicable): Date Santos Sousa MD CC: USED CAR SALESPERSON-[place] Zamora; DINAH Holder; Santos Sousa MD Signed TRANSFER TO EXTENDED Observed: 10/06/2017 Status: F Source: LUZERNE CARE 1:06 PM [facility] REPOSITORY [facility] Medical Records Department [address] [place] [address] Transfer to Extended Care MR#: [id number] Acct: [id number] Name: CHA CALIX Rep #: [id number] : 1945 71 From: Steven NIX PCP: MARILEE Mccain Status: ADM IN CHA CALIX (Patient) (Health Ins. Claim No.) (Day of Discharge to Facility) Certification of patient admission REQUIRED AT TIME OF ADMISSION. I CERTIFY THAT POST-HOSPITAL F SERVICES ARE REQUIRED TO BE GIVEN ON AN IN-PATIENT BASIS BECAUSE OF THE ABOVE NAMED PATIENT'S NEED FOR INTERMEDIATE CARE ON A CONTINUING BASIS FOR THE CONDITION(S) FOR WHICH HE/SHE WAS RECEIVING IN-PATIENT HOSPITAL SERVICES PRIOR TO HIS/HER TRANSFER TO THE [facility]. 10/06/17 1158 <Electronically signed by Steven NIX> Date Steven NIX - Diet 10/04/17 17:04 Diet: Cardiac/Low Cholesterol Food consistency:: Regular Liquid Consistency:: Regular/Thin - Routine Orders/Code Status Suppository Type: Dulcolax 10mg Suppository Frequency: Daily PRN Routine Lab Work: CBC - 3 days, BMP - 3 days Code Status: Full Code - Wound(s) abdomen fold right and left Wound Type: excoriation under right and left breasts Wound Type: excoriation coccyx Wound Type: Pressure Injury sacrum Wound Type: Pressure Injury Dressing Change: Wet to Dry Dressing - Therapies Physical Therapy: Eval and Treat Occupational Therapy: Eval and Treat - Problem/Diagnosis (1) Acute on Recurrent UTI Status: Acute Current Visit: No (2) Hypoglycemia Status: Acute Current Visit: Yes (3) Decubitus ulcer Status: Chronic Current Visit: Yes (4) Debility Status: Chronic Current Visit: Yes (5) CKD (chronic kidney disease), stage III Status: Chronic Current Visit: No (6) DM type 2 (diabetes mellitus, type 2) Status: Chronic Current Visit: No (7) Gout Status: Chronic Current Visit: No (8) CAD (coronary artery disease) Status: Chronic Current Visit: No (9) Candidal intertrigo Status: Chronic Current Visit: No - Allergies/Procedures Done in Hospital Allergies/Adverse Reactions: Allergies cephalexin [From Keflex] Allergy (Verified 10/04/17 13:13) Rash Penicillins Allergy (Verified 10/04/17 13:13) Rash Procedures: None - Type of Care/Length of Stay Estimated LOS: Convalescent Care Less Than 30 days Type of Care Needed: Skilled Rehab Potential: Fair Prognosis: Fair - Additional Orders/Day of Discharge Additional Orders: Daily wound dressing changes. Day of Discharge: 10/06/17 - Dietary and Speech Recommendations Dietitian Recommendations/Changes: Please check prealb and A1c. Rec diet change to 2200 dorothea Cardiac / low sodium. Rec Blaze bid to help w/ skin healing. Will order glucerna shake w/ meals for increased nutrition if consumed - Follow Up Care Primary Care Physician: Anyi Zamora, LAKHWINDER-C [Primary Care Provider] - Please follow up with your Primary Care Physician in: 2 weeks 10/06/17 1158 <Electronically signed by Steven NIX> Date Steven NIX CC: USED CAR SALESPERSON-C Anyi Zamora Signed BEDSIDE GLUCOSE Collected: 10/06/2017 Status: F Source: JOSE 11:50 AM [facility] REPOSITORY TYPE CODE TESTS RESULT OUT OF REFERENCE UNITS RANGE LAB L501.080 70-110 mg/dL High BEDSIDE GLU 114 Result Comment: MANAGEMENT OF PATIENT CARE PER NURSING PROTOCOL Performed By: #### L501.080 #### [facility] Laboratory Point of Care [address] [place] [address] CBC-COMPLETE BLOOD CNT Collected: 10/06/2017 Status: F Source: JOSE NO DIFF 7:10 AM [facility] REPOSITORY TYPE CODE TESTS RESULT OUT OF RANGE REFERENCE UNITS LAB L100.1000 4.4-11.0 K/mm3 Normal WBC 4.4 LAB L100.1200 4.2-5.4 M/mm3 Low RBC 2.86 LAB L100.1300 12.0-15.0 g/dl Low HGB 8.1 LAB L100.1400 37-47 % Low HCT 26.9 LAB L100.1500 81-99 fL Normal MCV 94.1 LAB L100.1600 27.0-32.0 pg Normal MCH 28.3 LAB L100.1700 32-36 g/gl Low MCHC 30.1 LAB L100.1810 11.6-14.6 % Normal RDW CV 14.3 LAB L100.1820 35.1-43.9 fl High RDW SD 49.3 LAB L100.1900 150-450 K/mm3 Low PLT 140 LAB L100.2000 6.2-12.0 fl Normal MPV 10.0 Performed By: #### L100.0500 #### [facility] [address] [facility] [place], [place], [address] BASIC METABOLIC Collected: 10/06/2017 Status: F Source: LUZERNE PROFILE (BMP) 7:10 AM [facility] REPOSITORY TYPE CODE TESTS RESULT OUT OF RANGE REFERENCE UNITS LAB L501.0100 74-106 mg/dL High GLU 112 Result Comment: Fasting Glucose result from 100 to 125 mg/dL suggests IMPAIRED HOMEOSTASIS per A.D.A. criteria. Please note revised GLUCOSE reference range effective 2017. LAB L501.1000 7-18 mg/dL High BUN 28 LAB L501.1100 0.55-1.02 mg/dL High CREAT,SERUM 1.60 Result Comment: The validity of the calculated GFR AND GFRAA in patients over 70 years has not been determined. Clinical correlation is essential. LAB L501.1110 >60 mL/min Low EST GFR 34 Result Comment: Non- GFR Calc LAB L501.1115 >60 mL/min Low EST GFR - AA 41 Result Comment: GFR Calc LAB L501.1255 ml/min Normal Estimated CRCL 28.60 LAB L501.1300 10-20 RATIO Normal BUN/CRE 17.5 LAB L501.2200 8.5-10 mg/dL Low .1 CA 7.1 LAB L501.5300 136-14 mmol/L Normal 5 NA 143 LAB L501.5600 3.5-5. mmol/L Normal 1 K 3.9 LAB L501.5900 98-107 mmol/L High CL 110 LAB L501.6100 21.0-3 mmol/L Normal 2.0 CO2 22.0 LAB L501.6200 5-15 Normal GAP 11 Performed By: #### L500.2500 #### [facility] [address] [place], [place], [address] BEDSIDE GLUCOSE Collected: 10/06/2017 Status: F Source: JOSE 6:47 AM [facility] REPOSITORY TYPE CODE TESTS RESULT OUT OF REFERENCE UNITS RANGE LAB L501.080 70-110 mg/dL High BEDSIDE GLU 116 Result Comment: MANAGEMENT OF PATIENT CARE PER NURSING PROTOCOL Performed By: #### L501.080 #### [facility] Laboratory Point of Care [address] [place] [address] MRSA WOUND DNA BY Collected: 10/06/2017 Status: F Source: JOSE PCR 3:00 AM [facility] REPOSITORY Order Comment: Comments: sacrum Specimen Source? sacral wound TYPE CODE TESTS RESULT OUT OF RANGE REFERENCE UNITS LAB L8200.1100 Negative Normal MRSA Negative RESULT LAB L8200.1150 Negative Normal SA RESULT NEGATIVE Performed By: #### L8200.1075 #### [facility] [address] [place], [place], [address] BEDSIDE GLUCOSE Collected: 10/05/2017 Status: F Source: JOSE 9:48 PM [facility] REPOSITORY TYPE CODE TESTS RESULT OUT OF REFERENCE UNITS RANGE LAB L501.080 70-110 mg/dL High BEDSIDE GLU 118 Result Comment: MANAGEMENT OF PATIENT CARE PER NURSING PROTOCOL Performed By: #### L501.080 #### [facility] Laboratory Point of Care [address] [place] [address] BEDSIDE GLUCOSE Collected: 10/05/2017 Status: F Source: JOSE 4:37 PM [facility] REPOSITORY TYPE CODE TESTS RESULT OUT OF REFERENCE UNITS RANGE LAB L501.080 70-110 mg/dL High BEDSIDE GLU 113 Result Comment: MANAGEMENT OF PATIENT CARE PER NURSING PROTOCOL Performed By: #### L501.080 #### [facility] [facility] Point of Care [address] [place] [address] Observed: 10/05/2017 Status: F Source: JOSE CULTURE, DEEP WOUND 11:55 AM [facility] REPOSITORY Gram Stain Gram Stain Rare Gram negative rods Rare Gram positive cocci 3+ Red Blood Cells No White Blood Cells Wound Culture #2 Organism unable to sustain growth for sensitivity testing. RESULTS CALLED TO [facility] [phone] 10/10/17 1444 Kim Wolf. Copy of report sent to Infection Control Printer [id number] 10/10/17 1445 JOSE. ORGANISM 1: Proteus mirabilis Amount Growth Rare ORGANISM 2: Enterococcus raffinosus Amount Growth Rare ORGANISM 3: Vancomycin Resist. E. faecilis Amount Growth Rare ORGANISM 4: Staphylococcus epidermidis Amount Growth Rare Proteus mirabilis: REACTION Amoxacillin/Clavulanic Acid $ <=2 S Ampicillin $ >=32 R Ampicillin/Sulbactam $ 4 S Cefazolin $ <=4 S Cefepime $ <=1 S Ceftriaxone $ <=1 S Ciprofloxacin $ >=4 R Ertapenim $$$ <=0.5 S Gentamicin $ <=1 S Levofloxacin $ >=8 R Piperacillin/Tazobactam $$ <=4 S Tobramycin $ <=1 S Trimethoprim/Sulfametho $ >=320 R (NF) indicates non-formulary drug at [facility]. Approval by Infectious Disease Specialist required before non-formulary drugs may be ordered and/or dispensed. Vancomycin Resist. E. faecilis: REACTION Ampicillin $ 8 R Benzylpenicillin NF 1 R Gentamicin SYN-S S Linezolid $$$$ 2 S Tigecycline $$$$ 0.25 S Streptomycin $ SYN-S S Vancomycin $ >=32 R (NF) indicates non-formulary drug at [facility]. Approval by Infectious Disease Specialist required before non-formulary drugs may be ordered and/or dispensed. * CLSI guidelines does not recommend testing of cephalosporins. This interpretation is deduced from Beta-lactam/penicillin results. Staphylococcus epidermidis: REACTION Benzylpenicillin NF >=0.5 R Cefoxitin *NF + Clindamycin $$ <=0.25 S Inducable Clindamycin Resistan - Erythromycin $ <=0.25 S Gentamicin $ <=0.5 S Levofloxacin $ >=8 R Linezolid $$$$ 1 S Oxacillin NF >=4 R Tigecycline $$$$ <=0.12 S Rifampin $$ <=0.5 S Tetracycline NF <=1 S Vancomycin $ 1 S (NF) indicates non-formulary drug at [facility]. Approval by Infectious Disease Specialist required before non-formulary drugs may be ordered and/or dispensed. * CLSI guidelines does not recommend testing of cephalosporins. This interpretation is deduced from Beta-lactam/penicillin results. Cult, Anaerobic No anaerobic bacteria isolated. Performed By: #### M100.1500 #### [facility] [address] [place], [address] BEDSIDE GLUCOSE Collected: 10/05/2017 Status: F Source: LUZERNE 11:40 AM [facility] REPOSITORY TYPE CODE TESTS RESULT OUT OF REFERENCE UNITS RANGE LAB L501.080 70-110 mg/dL High BEDSIDE GLU 153 Result Comment: MANAGEMENT OF PATIENT CARE PER NURSING PROTOCOL Performed By: #### L501.080 #### [facility] Point of Care [address] [place] [address] BEDSIDE GLUCOSE Collected: 10/05/2017 Status: F Source: LUZ[place] 6:57 AM [facility] REPOSITORY TYPE CODE TESTS RESULT OUT OF RANGE REFERENCE UNITS LAB L501.080 70-110 mg/dL Normal BEDSIDE GLU 109 Result Comment: MANAGEMENT OF PATIENT CARE PER NURSING PROTOCOL Performed By: #### L501.080 #### [facility] Point of Care [address] [facility] [place] [address] CBC W/DIFF, AUTOMATED Collected: 10/05/2017 Status: F Source: LUZERNE 5:08 AM [facility] REPOSITORY TYPE CODE TESTS RESULT OUT OF RANGE REFERENCE UNITS LAB L100.1000 4.4-11.0 K/mm3 Normal WBC 5.6 LAB L100.1200 4.2-5.4 M/mm3 Low RBC 2.89 LAB L100.1300 12.0-15.0 g/dl Low HGB 8.3 LAB L100.1400 37-47 % Low HCT 27.3 LAB L100.1500 81-99 fL Normal MCV 94.5 LAB L100.1600 27.0-32.0 pg Normal MCH 28.7 LAB L100.1700 32-36 g/gl Low MCHC 30.4 LAB L100.1810 11.6-14.6 % Normal RDW CV 14.1 LAB L100.1820 35.1-43.9 fl High RDW SD 48.4 LAB L100.1900 150-450 K/mm3 Low PLT 133 LAB L100.2000 6.2-12.0 fl Normal MPV 10.9 LAB L100.2100 47-70 % High NEUT% 78.5 LAB L100.2200 19-41 % Low LY% 11.4 LAB L100.2300 0-10 % Normal MONO% 7.4 LAB L100.2400 0-5 % Normal EO% 2.7 LAB L100.2500 0-1 % Normal BASO% 0.0 LAB L100.2550 0.0-0.9 % Normal IM GRAN % 0.000 Result Comment: IG% - Immature Granulocytes (promyelocytes, myelocytes and metamyelocytes) > 1% indicates that a LEFT SHIFT is Present. LAB L100.2620 2.0-7.7 X10 3/uL Normal Absolute Neut 4.4 LAB L100.2720 0.83-4.51 X10 3/ul Low Absolute Lymph 0.63 Performed By: #### L100.0100 #### [facility] [address] [place], [place], [address] COMPREHENSIVE METABOLIC Collected: 10/05/2017 Status: F Source: [facility] 5:08 AM [facility] REPOSITORY TYPE CODE TESTS RESULT OUT OF RANGE REFERENCE UNITS LAB L501.0100 74-106 mg/dL Low alert GLU 41 Result Comment: Critical Result(s) Called at: 06:24:41 10/05/2017 by: All Hoang to Rodrigo Villanueva RN (PCU). Glucose result less than 50 mg/dL suggests HYPOGLYCEMIA. Please note revised GLUCOSE reference range effective 2017. LAB L501.1000 7-18 mg/dL High BUN 30 LAB L501.1100 0.55-1.02 mg/dL High CREAT,SERUM 1.52 Result Comment: The validity of the calculated GFR AND GFRAA in patients over 70 years has not been determined. Clinical correlation is essential. LAB L501.1110 >60 mL/min Low EST GFR 36 Result Comment: Non- GFR Calc LAB L501.1115 >60 mL/min Low EST GFR - AA 43 Result Comment: GFR Calc LAB L501.1255 ml/min Normal Estimated CRCL 30.10 LAB L501.1300 10-20 RATIO Normal BUN/CRE 19.7 LAB L501.1500 6.4-8. g/dL Low 2 T PROT 5.2 LAB L501.1800 3.2-5. g/dL Low 0 ALB 0.9 LAB L501.1950 2.2-4. g/dL High 2 GLOB 4.3 LAB L501.2000 0.9-2. RATIO Low 4 A/G 0.2 LAB L501.2200 8.5-10 mg/dL Low .1 CA 7.1 LAB L501.4100 15-37 U/L Normal AST 21 LAB L501.4305 45-117 U/L Normal ALK P 110 LAB L501.4405 13-56 U/L Normal ALT 19 LAB L501.4600 0.20-1 mg/dL Low .00 T BILI 0.10 LAB L501.5300 136-14 mmol/L Normal 5 NA 142 LAB L501.5600 3.5-5. mmol/L Normal 1 K 3.5 LAB L501.5900 98-107 mmol/L High CL 111 LAB L501.6100 21.0-3 mmol/L Low 2.0 CO2 20.0 LAB L501.6200 5-15 Normal GAP 11 Performed By: #### L500.4050 #### [facility] [address] [place], [address] BEDSIDE GLUCOSE Collected: 10/04/2017 Status: F Source: [place] 10:09 PM [facility] REPOSITORY TYPE CODE TESTS RESULT OUT OF REFERENCE UNITS RANGE LAB L501.080 70-110 mg/dL High BEDSIDE GLU 142 Result Comment: MANAGEMENT OF PATIENT CARE PER NURSING PROTOCOL Performed By: #### L501.080 #### [facility] Point of Care [address] [place] [address] HISTORY AND PHYSICAL Observed: 10/04/2017 Status: F Source: LUZERNE EXAM 6:19 PM [facility] REPOSITORY [facility] Medical Records Department [address] [place] [address] History and Physical 10/04/17 1715 MR#: [id number] Acct: [id number] Name: CHA CALIX Rep #: [id number] : 1945 71 From: Harvey More DO PCP: Anyi Zamora, [facility] Status: ADM IN Y [id number] ADDENDUM by Harvey More DO on 10/04/17 at 1819 Code Visit Patient with a noted cephalexin allergy though has received Rocephin in the past. We will change antibiotics from meropenem. 10/04/171818 <Electronically signed by Harvey More DO> Date Harvey More DO cc: USED CAR SALESPERSON-C Anyi Zamora; Harvey More DO * Signed Problem List (1) Hypoglycemia Status: Acute (2) Decubitus ulcer Status: Acute Qualifiers: Pressure injury location: contiguous region involving back and buttock Pressure injury stage: stage 4 Laterality: unspecified laterality Qualified Code(s): L89.44 - Pressure ulcer of contiguous site of back, buttock and hip, stage 4 (3) UTI (urinary tract infection) Status: Acute Qualifiers: Urinary tract infection type: acute cystitis Hematuria presence: without hematuria Qualified Code(s): N30.00 - Acute cystitis without hematuria (4) Debility Status: Acute History of Present Illness Date of Admission: 10/04/17 Chief Complaint: decubitus ulcer The patient is a 71 year old F with a decubitus ulcer. Patient's history is obtained primarily through her as well as session. Patient's states that she has had a pressure ulcer on her backside for some time and just recently had gotten worse. He decided to bring the patient into the emergency room. In the emergency room, patient was noted to be hypoglycemic with a blood sugar on her BMP of 48. Patient was started on a D10 drip. Subsequent blood sugars did improve into the 130s. Patient's states that she would have hypoglycemic episodes at home with her blood sugar being into the 50s but he would still give her her Lantus but only after he gave her juice. He states the patient has not been eating much. Patient was recently diagnosed with a urinary tract faction and treated with Bactrim. [] Past Medical History Past Medical History (Chronic Problems): Chronic Problems Dysphagia (Chronic) CKD (chronic kidney disease), stage III (Chronic) DM type 2 (diabetes mellitus, type 2) (Chronic) Gout (Chronic) Morbid obesity (Chronic) Psoriasis (Chronic) Rosacea (Chronic) CAD (coronary artery disease) (Chronic) Fibromyalgia (Chronic) Spastic paraparesis (Chronic) Skin excoriation (Chronic) secondary to fungal skin infection UTI (urinary tract infection) (Chronic) Candidal intertrigo (Chronic) Decubitus ulcer (Chronic) Allergies cephalexin [From Keflex] Allergy (Verified 10/04/17 13:13) Rash Penicillins Allergy (Verified 10/04/17 13:13) Rash Home Medications: Ambulatory Orders Medication Instructions Recorded Levothyroxine [Synthroid] 88 mcg PO DAILY 01/21/16 Surgical History: cholecystectomy, hysterectomy Smoking Status: Former smoker - *Family History Maternal History Items: Unknown - Unable to obtain as the patient is a very poor historian. Paternal History Items: No pertinent history Review of Systems Constitutional: Reports: Anorexia. Denies: Chills, Fever Eyes: Denies: Blurred vision, Double vision HEENT: Denies: Difficulty Hearing Cardiovascular: Denies: Chest Pain, Chest Tightness Respiratory: Denies: Cough Gastrointestinal: Denies: Abdominal Pain, Nausea, Vomiting Genitourinary: Denies: Dysuria, Hematuria Musculoskeletal: Reports: Back Pain Neurological: Reports: - - Bedbound. Functional paraplegic. Psychiatric: Denies: Anxiety, Depression Hematologic/ Lymphatic: Reports: Easy Bleeding Comment: Limited review of systems given the fact the patient is a very poor historian and much of the review of systems obtained to the patient's at bedside. VTE Information - Inpt Only VTE Present on Admission: No VTE Pharm Prophylaxis ordered?: Yes Patient Problems: Active and Suspected Problems Hypoglycemia (Acute) Decubitus ulcer (Acute) UTI (urinary tract infection) (Acute) Debility (Acute) - Physical Exam General: Alert, No apparent distress, - - Oriented 2 HEENT: Atraumatic, Normocephalic Oral: Moist Mucosa, No Gingival or Mucosal Lesions/ Ulcerations Neck: No Nodes, Thyroid Normal Size and Texture Lungs: Clear to auscultation, No rhonchi, No wheeze, Diminished Cardiovascular: Regular rate, Regular Rhythm, Normal S1, Normal S2, No murmurs Abdomen: Bowel Sounds Present, Soft, Non Tender, Non-Distended, No Hepato-splenomegaly Extremities: No edema, No Calf Tenderness Skin: - - Stage III-IV sacral decubitus ulcer. Proximally 5 cm in diameter. No purulence was noted. Musculoskeletal: Cachexia, Muscle Wasting, - - Plantar contractions of the lower extremities Neurological: Sensory exam intact to light touch and pain, - - No clonus Psych/Mental Status: Anxious, Flat Affect Vital Signs Pulse Resp BP Pulse Ox 65 19 H 115/100 H 97 10/04/17 16:38 10/04/17 16:38 10/04/17 16:38 10/04/17 16:38 Assessment/Plan All Active Problems Hypoglycemia (Acute) Decubitus ulcer (Acute) UTI (urinary tract infection) (Acute) Debility (Acute) Hypoglycemia (Acute) Acute on Recurrent UTI (Acute) Chest pain (Resolved) Neutropenic fever (Resolved) Generalized weakness (Acute) Hypotension (Resolved) Pancytopenia (Resolved) 1. Hypoglycemia * Secondary to getting insulin despite his poor oral intake * I have requested the D10 being stopped and we will continue to monitor * Hold off on the Lantus for now 2. Stage III-IV decubitus ulcer, sacrum * Wound care consultation * Likely due to poor care at home 3. UTI * Catheter associated * diagnosed on 09/28 * Positive Citrobacter as well as Klebsiella pneumoniae * Was on Bactrim but the organisms are resistant to that * Will change to ceftriaxone 4. Debility * Patient is a functional paraplegic and essentially bedbound * Physical and occupational therapy evaluate and treat * Apparently there is concern about the patient's care at home and Adult Protective Services has been informed through the emergency room. 5. Candidiasis/intertrigo * Nystatin 6. Diabetes mellitus type 2 * We will check micro-blood sugars but hold off on any insulin at this point time given the patient's hypoglycemia 7. DVT prophylaxis with Lovenox Advanced care planning: Spent additional 15 minutes discussing with the patient's about advanced care planning. Explained to him that the patient's long-term prognosis is poor given her medical comorbidities. I did recommend that he speak with hospice. States that the patient is not hospice appropriate this time but if she were to get an acute illness that could certainly cause her to decline very quickly. He was in agreement to discussing with hospice. Code Visit Inpatient E AND M: [id number] Init Hosp L3 Procedures: 77084 Advncd Care Plan 30 Min 10/04/17 1725 <Electronically signed by Harvey More DO> Date Harvey More DO Cosigner Signature: Date (if applicable) CC: USED CAR SALESPERSON-C Anyi Zamora; Harvey More DO Signed BEDSIDE GLUCOSE Collected: 10/04/2017 Status: F Source: JOSE 4:55 PM [facility] REPOSITORY TYPE CODE TESTS RESULT OUT OF REFERENCE UNITS RANGE LAB L501.080 70-110 mg/dL High BEDSIDE GLU 147 Result Comment: MANAGEMENT OF PATIENT CARE PER NURSING PROTOCOL Performed By: #### L501.080 #### [facility] Point of Care [address] [facility] [address] BEDSIDE GLUCOSE Collected: 10/04/2017 Status: F Source: JOSE 4:00 PM [facility] REPOSITORY TYPE CODE TESTS RESULT OUT OF REFERENCE UNITS RANGE LAB L501.080 70-110 mg/dL High BEDSIDE GLU 129 Result Comment: MANAGEMENT OF PATIENT CARE PER NURSING PROTOCOL Performed By: #### L501.080 #### [facility] Point of Care [address] [facility] [place] [address] EMERGENCY DEPARTMENT Observed: 10/04/2017 Status: F Source: JOSE SUMMARY 3:53 PM [facility] REPOSITORY [facility] Medical Records Department [address] [place] [address] Emergency Department Summary 10/04/17 1545 MR#: [id number] Acct: [id number] Name: CHA CALIX Rep #: [id number] : 1945 71 From: Mikey Warner MD PCP: Anyi Zamora, USED CAR SALESPERSON-C Status: REG ER - ER Visit Summary Date of Service: 10/04/17 Chief Complaint: Failure to thrive History of Present Illness: The patient is a 71 F who presents from home by ambulance. She has not been able to ambulate for 1 year. The nurse practitioner who is responsible for primary care states there is no known etiology for her inability to walk. She has total Jeromy dependent on others for care. blames visiting nurse for failure to show in care for . Nurse practitioner called prior. has not followed medical recommendations. He has been giving her insulin spite of hypoglycemia. He has not been feeding her because he does not want to clean up her stool. While in the department he was verbally abusive towards his . She had a stage II lumbar/sacral decubitus that has now become a stage IV. She also has pressure sore with skin breakdown in the perianal/gluteal crease region. She really has no complaints. History of type 1 diabetes, hypertension, end-stage renal disease, frequent urinary tract infections, obesity, functional paralysis and pancytopenia. Physical Examination: Vital signs are unremarkable. She is not febrile nor she hypoxic. Head is atraumatic normal cephalic. Pupils equal round reactive. Extra muscle intact. Sclerae nonicteric. Conjunctive is normal. There is no subconjunctival hemorrhage. TMs normal. Mucosa slightly dry. Trachea midline. Lungs are clear auscultation. Heart is regular. Abdomen soft nontender. Grade 4 lumbar decubitus 3 x 5 cm. Pressure sore skin breakdown gluteal crease/perianal region. Patient moves her arms. Minimal movement of legs. She does have sensation. There is no clonus or Babinski sign noted. Test Results: CBC is unremarkable. CMP is remarkable for a total protein of 5.9 albumin of 1.2. Creatinine is 1.58. Glucose 42. Patient had recurrent hypoglycemia in spite of medication and feeding the patient. She was placed on a D10 drip at 75 cc/h. Urinalysis is pending. Emergency Department Course and Treatment: Case management was consulted. I was informed by his nurse practitioner that Adult Protective Services been involved. When was told Adult Protective Services were involved he responded I was ass holes . Treatment Plan: We will contact hospitalist for admission, case management involvement and placement since she is not able to care for self and is not able to care for her. Her laboratory studies indicate significant malnourishment Disposition: Medical surge admission Impression: 1. Failure to thrive 2. Severe malnourishment 3. Grade 4 lumbar decubitus 4. Recurrent intractable hypoglycemia 5. History of hypertension 6. End-stage renal disease This note was generated with Nginx dictation software. It may contain incorrect words, spelling, and punctuation that were not noted in review of the chart prior to signing ED Disposition - Plan for ED Patient: Chief Complaint: Wound Referrals: Anyi Zamora, USED CAR SALESPERSON-Jose [Primary Care Provider] - What to do if you have Problems For any increased pain, shortness of breath, bleeding, nausea or vomiting, chest pain, or any unexpected problems, contact your Primary Care Provider. Call [facility] ([phone]) or report to the closest Emergency Room. Call 911 if necessary. 10/04/17 1553 <Electronically signed by Mikey Warner MD> Date Mikey Warner MD Cosigner Signature (If Indicated): Date CC: USED CAR SALESPERSONNahomy Zamora BEDSIDE GLUCOSE Collected: 10/04/2017 Status: F Source: [place] 3:06 PM [facility] REPOSITORY TYPE CODE TESTS RESULT OUT OF REFERENCE UNITS RANGE LAB L501.080 70-110 mg/dL Low BEDSIDE GLU 57 Result Comment: MANAGEMENT OF PATIENT CARE PER NURSING PROTOCOL Performed By: #### L501.080 #### [facility] Point [facility] [address] [place] [address] CBC W/DIFF, AUTOMATED Collected: 10/04/2017 Status: F Source: [place] 3:05 PM [facility] REPOSITORY Order Comment: REDRAW. PREVIOUS SPECIMEN REJECTED DUE TO QNS. 10/04/17 Stefani Martin. TYPE CODE TESTS RESULT OUT OF RANGE REFERENCE UNITS LAB L100.1000 4.4-11.0 K/mm3 Normal WBC 8.1 LAB L100.1200 4.2-5.4 M/mm3 Low RBC 3.23 LAB L100.1300 12.0-15.0 g/dl Low HGB 9.7 LAB L100.1400 37-47 % Low HCT 31.5 LAB L100.1500 81-99 fL Normal MCV 97.5 LAB L100.1600 27.0-32.0 pg Normal MCH 30.0 LAB L100.1700 32-36 g/gl Low MCHC 30.8 LAB L100.1810 11.6-14.6 % Normal RDW CV 14.0 LAB L100.1820 35.1-43.9 fl High RDW SD 47.4 LAB L100.1900 150-450 K/mm3 Low PLT 132 LAB L100.2000 6.2-12.0 fl Normal MPV 10.6 LAB L100.2100 47-70 % High NEUT% 81.2 LAB L100.2200 19-41 % Low LY% 10.8 LAB L100.2300 0-10 % Normal MONO% 5.8 LAB L100.2400 0-5 % Normal EO% 1.6 LAB L100.2500 0-1 % Normal BASO% 0.2 LAB L100.2550 0.0-0.9 % Normal IM GRAN % 0.400 Result Comment: IG% - Immature Granulocytes (promyelocytes, myelocytes and metamyelocytes) > 1% indicates that a LEFT SHIFT is Present. LAB L100.2620 2.0-7.7 X10 3/uL Normal Absolute Neut 6.5 LAB L100.2720 0.83-4.51 X10 3/ul Normal Absolute Lymph 0.87 Performed By: #### L100.0100 #### [facility] [address] [place], [place], [address] BEDSIDE GLUCOSE Collected: 10/04/2017 Status: F Source: [place] 2:31 PM [facility] REPOSITORY TYPE CODE TESTS RESULT OUT OF REFERENCE UNITS RANGE LAB L501.080 70-110 mg/dL Low alert BEDSIDE GLU 40 Result Comment: Dr Mcdonald Followed MANAGEMENT OF PATIENT CARE PER NURSING PROTOCOL Performed By: #### L501.080 #### [facility] Point of Care [address] [facility] [place], [place] [address] COMPREHENSIVE METABOLIC Collected: 10/04/2017 Status: F Source: JOSE MARRERO 2:30 PM [facility] REPOSITORY Order Comment: REDRAW. PREVIOUS SPECIMEN REJECTED DUE TO HEMOLYSIS. 10/04/17 1414 Ingrid Brady. TYPE CODE TESTS RESULT OUT OF RANGE REFERENCE UNITS LAB L501.0100 74-106 mg/dL Low alert GLU 42 Result Comment: Critical Result(s) Called at: 14:57:50 10/04/2017 by: Ingrid Brady to Henrique Glucose result less than 50 mg/dL suggests HYPOGLYCEMIA. Please note revised GLUCOSE reference range effective 2017. LAB L501.1000 7-18 mg/dL High BUN 29 LAB L501.1100 0.55-1.02 mg/dL High CREAT,SERUM 1.58 Result Comment: The validity of the calculated GFR AND GFRAA in patients over 70 years has not been determined. Clinical correlation is essential. LAB L501.1110 >60 mL/min Low EST GFR 34 Result Comment: Non- GFR Calc LAB L501.1115 >60 mL/min Low EST GFR - AA 41 Result Comment: GFR Calc LAB L501.1255 ml/min Normal Estimated CRCL 27.79 LAB L501.1300 10-20 RATIO Normal BUN/CRE 18.4 LAB L501.1500 6.4-8. g/dL Low 2 T PROT 5.9 LAB L501.1800 3.2-5. g/dL Low 0 ALB 1.2 LAB L501.1950 2.2-4. g/dL High 2 GLOB 4.7 LAB L501.2000 0.9-2. RATIO Low 4 A/G 0.3 LAB L501.2200 8.5-10 mg/dL Low .1 CA 7.2 LAB L501.4100 15-37 U/L Normal AST 20 LAB L501.4305 45-117 U/L High ALK P 119 LAB L501.4405 13-56 U/L Normal ALT 15 LAB L501.4600 0.20-1 mg/dL Normal .00 T BILI 0.20 LAB L501.5300 136-14 mmol/L Normal 5 NA 143 LAB L501.5600 3.5-5. mmol/L Low 1 K 3.4 LAB L501.5900 98-107 mmol/L High CL 110 LAB L501.6100 21.0-3 mmol/L Normal 2.0 CO2 26.0 LAB L501.6200 5-15 Normal GAP 7 Performed By: #### L500.4050 #### [facility] [address] [place], [address] URINALYSIS, COMPLETE Collected: 10/04/2017 Status: F Source: [place] 2:30 PM [facility] REPOSITORY Order Comment: Has pt arrived? Y How was Urine Obtained? CLEAN CATCH TYPE CODE TESTS RESULT OUT OF RANGE REFERENCE UNITS LAB L400.3000 Yellow COLOR Normal Yellow LAB L400.3050 Clear Normal CLARITY Sl. Cloudy LAB L400.3200 Normal mg/dl Normal GLUCOSE, UR Normal LAB L400.3300 Negative mg/dL Normal BILIRUBIN URINE Negative LAB L400.3400 Negative mg/dl Normal KETONE UR Negative LAB L400.3465 1.002-1.030 Normal SP.GR. DIPSTX 1.015 LAB L400.3550 5.0 - 8.0 pH UR Normal 6.0 LAB L400.3600 Negative mg/dl High PROT 30 DIPSTX LAB L400.3700 Normal mg/dl Normal UROBILI Normal LAB L400.3750 Negative High NITRITE UR Positive LAB L400.3780 Negative /ul High OCCULT BLOOD-UR 150 LAB L400.3800 Negative /ul High LEUK ESTERASE 500 LAB L400.4050 0-5 /hpf WBC Normal >100 SEEN LAB L400.4100 0-5 /hpf Normal RBC-UA 10-25 SEEN LAB L400.4150 5-10 /hpf SQUAM Normal EPI 5-10 SEEN LAB L400.4300 None Seen /hpf 1+ Normal BACTERIA LAB L400.4350 <or=2+ /hpf 0 Normal MUCUS, URINE SEEN Performed By: #### L400.0001 #### [facility] [address] [place], [address] EMERGENCY DEPARTMENT Observed: 09/28/2017 Status: F Source: [place] SUMMARY 11:36 PM [facility] REPOSITORY [facility] Medical Records Department [address] [place] [address] Emergency Department Summary 09/28/17 1608 MR#: [id number] Acct: [id number] Name: CHA CALIX Rep #: [id number] : 1945 71 From: Harvey Medrano DO PCP: Care Physician, No Primary Status: DEP ER - ER Visit Summary Date of Service: 09/28/17 Chief Complaint: Painful bedsores History of Present Illness: The patient is a 71 F who presents with pain over her decubitus ulcer area over her sacrum. This has been getting progressively worse. Patient has been taking oxycodone and ibuprofen with no improvement. Patient denies any fevers or chills. Patient states home health has been changing dressings on her ulcer. states that they have been packing the ulcer and covering it with dressings. Patient denies any nausea or vomiting. Patient states that the home health nurse today noted some drainage from the ulceration. Physical Examination: Vital signs are stable. Patient is afebrile. Patient is in no acute distress. Oral mucosa is pink but dry. Neck is supple. There is no JVD noted. Heart was regular rate and rhythm. Lungs are clear and equal bilaterally. There is good respiratory effort noted. Abdomen is soft. Bowel sounds are normal. There is no tenderness. Cranial nerves II through XII are intact. There are no focal motor or sensory deficits noted. The remaining physical exam is within normal limits. Test Results: CBC and metabolic profile were essentially within normal limits. Urinalysis does show evidence of urinary tract infection. Emergency Department Course and Treatment: Patient was given a dose of morphine here. Patient felt better on reevaluation and wants to go home. Patient was given a prescription for Bactrim. Patient was instructed to follow-up with her primary care physician in 5-7 days. Patient and her understood and were agreeable with the plan. All questions were answered. Disposition: Discharged home Impression: Urinary tract infection, decubitus ulcer This note was generated with Nginx dictation software. It may contain incorrect words, spelling, and punctuation that were not noted in review of the chart prior to signing ED Disposition - Plan for ED Patient: Disposition: Home or Assisted Living Chief Complaint: Other, Pain/Inj Diagnosis: UTI (urinary tract infection), Decubitus ulcer Instructions: ED Chronic Pain Management, ED UTI Cystitis Female Prescriptions: Smz/Tmp Ds [Bactrim Ds] 1 tab PO BID #14 tab Referrals: Care Physician,No Primary [Primary Care Provider] - What to do if you have Problems For any increased pain, shortness of breath, bleeding, nausea or vomiting, chest pain, or any unexpected problems, contact your Primary Care Provider. Call [facility] ([phone]) or report to the closest Emergency Room. Call 911 if necessary. 09/28/17 2336 <Electronically signed by Harvey Medrano DO> Date Harvey Medrano DO Cosigner Signature (If Indicated): Date CC: No Primary Care Physician Observed: 09/28/2017 Status: F Source: [place] CULTURE, URINE 4:08 PM [facility] REPOSITORY Urine Culture ORGANISM 1: Citrobacter youngae [place] Count >100,000 ORGANISM 2: Klebsiella pneumoniae sp pneum [place] Count >100,000 Citrobacter youngae: REACTION Amoxacillin/Clavulanic Acid $ 16 R Cefazolin $ >=64 R Cefepime $ <=1 S Ceftriaxone $ 8 S Ciprofloxacin $ 1 I Ertapenim $$$ <=0.5 S Gentamicin $ 8 I Imipenem *NF <=0.25 S Levofloxacin $ 4 I Nitrofurantoin $ <=16 S Tobramycin $ 8 I Trimethoprim/Sulfametho $ >=320 R (NF) indicates non-formulary drug at [facility]. Approval by Infectious Disease Specialist required before non-formulary drugs may be ordered and/or dispensed. Klebsiella pneumoniae sp pneum: REACTION Amoxacillin/Clavulanic Acid $ >=32 R Ampicillin $ >=32 R Ampicillin/Sulbactam $ >=32 R Cefazolin $ >=64 R Cefepime $ <=1 S Ceftriaxone $ 2 S Ciprofloxacin $ <=0.25 S ESBL - Ertapenim $$$ <=0.5 S Gentamicin $ 8 I Imipenem *NF <=0.25 S Levofloxacin $ <=0.12 S Nitrofurantoin $ 32 S Piperacillin/Tazobactam $$ 16 S Tobramycin $ 8 I Trimethoprim/Sulfametho $ >=320 R (NF) indicates non-formulary drug at [facility]. Approval by Infectious Disease Specialist required before non-formulary drugs may be ordered and/or dispensed. Performed By: #### M100.0650 #### [facility] Laboratory [address] [place], [address] URINALYSIS, COMPLETE Collected: 09/28/2017 Status: F Source: [place] 4:05 PM [facility] REPOSITORY Order Comment: How was Urine Obtained? CATHETER SPECIMEN TYPE CODE TESTS RESULT OUT OF RANGE REFERENCE UNITS LAB L400.3000 Yellow COLOR Normal Yellow LAB L400.3050 Clear Normal CLARITY Cloudy LAB L400.3200 Normal mg/dl Normal GLUCOSE, UR Normal LAB L400.3300 Negative mg/dL Normal BILIRUBIN URINE Negative LAB L400.3400 Negative mg/dl Normal KETONE UR Negative LAB L400.3465 1.002-1.030 Normal SP.GR. DIPSTX 1.010 LAB L400.3550 5.0 - 8.0 pH UR Normal 7.0 LAB L400.3600 Negative mg/dl High PROT 30 DIPSTX LAB L400.3700 Normal mg/dl Normal UROBILI Normal LAB L400.3750 Negative High NITRITE UR Positive LAB L400.3780 Negative /ul High OCCULT BLOOD-UR 150 LAB L400.3800 Negative /ul High LEUK ESTERASE 500 LAB L400.4050 0-5 /hpf WBC Normal >100 SEEN LAB L400.4100 0-5 /hpf Normal RBC-UA 0-5 SEEN LAB L400.4150 5-10 /hpf SQUAM Normal EPI 0-5 SEEN LAB L400.4300 None Seen /hpf 4+ Normal BACTERIA LAB L400.4350 <or=2+ /hpf 0 Normal MUCUS, URINE SEEN LAB L400.4900 1+ Normal AMORPHOUS Performed By: #### L400.0001 #### [facility] [address] [place], [address] CBC W/DIFF, AUTOMATED Collected: 09/28/2017 Status: F Source: [place] 3:55 PM [facility] REPOSITORY TYPE CODE TESTS RESULT OUT OF RANGE REFERENCE UNITS LAB L100.1000 4.4-11.0 K/mm3 Normal WBC 8.5 LAB L100.1200 4.2-5.4 M/mm3 Low RBC 3.33 LAB L100.1300 12.0-15.0 g/dl Low HGB 9.7 LAB L100.1400 37-47 % Low HCT 32.1 LAB L100.1500 81-99 fL Normal MCV 96.4 LAB L100.1600 27.0-32.0 pg Normal MCH 29.1 LAB L100.1700 32-36 g/gl Low MCHC 30.2 LAB L100.1810 11.6-14.6 % Normal RDW CV 14.0 LAB L100.1820 35.1-43.9 fl High RDW SD 49.2 LAB L100.1900 150-450 K/mm3 Low PLT 147 LAB L100.2000 6.2-12.0 fl Normal MPV 10.6 LAB L100.2100 47-70 % High NEUT% 82.8 LAB L100.2200 19-41 % Low LY% 10.7 LAB L100.2300 0-10 % Normal MONO% 5.2 LAB L100.2400 0-5 % Normal EO% 1.1 LAB L100.2500 0-1 % Normal BASO% 0.1 LAB L100.2550 0.0-0.9 % Normal IM GRAN % 0.100 Result Comment: IG% - Immature Granulocytes (promyelocytes, myelocytes and metamyelocytes) > 1% indicates that a LEFT SHIFT is Present. LAB L100.2620 2.0-7.7 X10 3/uL Normal Absolute Neut 7.0 LAB L100.2720 0.83-4.51 X10 3/ul Normal Absolute Lymph 0.91 Performed By: #### L100.0100 #### [facility] [address] [place], [place], [id number] COMPREHENSIVE METABOLIC Collected: 09/28/2017 Status: F Source: [facility] 3:55 PM [facility] REPOSITORY TYPE CODE TESTS RESULT OUT OF RANGE REFERENCE UNITS LAB L501.0100 74-106 mg/dL High GLU 142 Result Comment: Fasting Glucose result greater than or equal to 126 mg/dL suggests DIABETES MELLITUS per A.D.A. criteria. Please note revised GLUCOSE reference range effective 2017. LAB L501.1000 7-18 mg/dL High BUN 28 LAB L501.1100 0.55-1.02 mg/dL High CREAT,SERUM 1.46 Result Comment: The validity of the calculated GFR AND GFRAA in patients over 70 years has not been determined. Clinical correlation is essential. LAB L501.1110 >60 mL/min Low EST GFR 37 Result Comment: Non- GFR Calc LAB L501.1115 >60 mL/min Low EST GFR - AA 45 Result Comment: GFR Calc LAB L501.1255 ml/min Normal Estimated CRCL 27.55 LAB L501.1300 10-20 RATIO Normal BUN/CRE 19.2 LAB L501.1500 6.4-8. g/dL Low 2 T PROT 5.9 LAB L501.1800 3.2-5. g/dL Low 0 ALB 1.4 LAB L501.1950 2.2-4. g/dL High 2 GLOB 4.5 LAB L501.2000 0.9-2. RATIO Low 4 A/G 0.3 LAB L501.2200 8.5-10 mg/dL Low .1 CA 7.1 LAB L501.4100 15-37 U/L Normal AST 15 LAB L501.4305 45-117 U/L Normal ALK P 108 LAB L501.4405 13-56 U/L Normal ALT 14 LAB L501.4600 0.20-1 mg/dL Normal .00 T BILI 0.40 LAB L501.5300 136-14 mmol/L Normal 5 NA 144 LAB L501.5600 3.5-5. mmol/L Low 1 K 3.1 LAB L501.5900 98-107 mmol/L Normal CL 104 LAB L501.6100 21.0-3 mmol/L High 2.0 CO2 33.0 LAB L501.6200 5-15 Normal GAP 7 Performed By: #### L500.4050 #### [facility] [address] [place], [place], [id number] URINALYSIS, COMPLETE Collected: 07/13/2017 Status: F Source: JOSE 4:15 PM [facility] REPOSITORY Order Comment: How was Urine Obtained? CLEAN CATCH TYPE CODE TESTS RESULT OUT OF RANGE REFERENCE UNITS LAB L400.3000 Yellow COLOR Normal Yellow LAB L400.3050 Clear Normal CLARITY Clear LAB L400.3200 Normal mg/dl Normal GLUCOSE, UR Normal LAB L400.3300 Negative mg/dL Normal BILIRUBIN URINE Negative LAB L400.3400 Negative mg/dl Normal KETONE UR Negative LAB L400.3465 1.002-1.030 Normal SP.GR. DIPSTX 1.010 LAB L400.3550 5.0 - 8.0 pH UR Normal 6.5 LAB L400.3600 Negative mg/dl PROT Normal DIPSTX Negative LAB L400.3700 Normal mg/dl Normal UROBILI Normal LAB L400.3750 Negative Normal NITRITE UR Negative LAB L400.3780 Negative /ul High OCCULT BLOOD-UR 150 LAB L400.3800 Negative /ul High LEUK ESTERASE 100 LAB L400.4050 0-5 /hpf WBC Normal 0-5 SEEN LAB L400.4100 0-5 /hpf Normal RBC-UA 5-10 SEEN LAB L400.4150 5-10 /hpf SQUAM 0 Normal EPI SEEN LAB L400.4300 None Seen /hpf 0 Normal BACTERIA SEEN LAB L400.4350 <or=2+ /hpf 0 Normal MUCUS, URINE SEEN Performed By: #### L400.0001 #### [facility] [address] [facility]. [place], [place], [address] ALLERGIES ALLERGIES DATE TYPE / CODE NAME / CODE REACTION SEVERITY SOURCE 10/04/2017 Drug Penicillins/ Rash Unknown [facility] Allergy/4160 [id number](R Hospital 78316(SNOMED XNORM) Repository CT) 10/04/2017 Drug cephalexin/F Rash Unknown [facility] Allergy/4160 [id number](RX Hospital 15362(SNOMED NORM) Repository CT) ENCOUNTERS ENCOUNTERS ADMIT/DISCHARGE ACCOUNT ADMITTING ENCOUNTER LOCATION SOURCE NUMBER CLASS 01/31/2018 [id number] Ambulatory [facility] 2 [facility] ing:OLS.AVEC Repository 01/24/2018 [id number] Ambulatory [facility] 4 [facility] ing:OLS.AVEC Repository 01/17/2018 [id number] Ambulatory [facility] 5 [facility] ing:OLS.AVEC Repository 01/10/2018 [id number] Ambulatory [facility] 3 [facility] ing:OLS.AVEC Repository 01/03/2018 [id number] Ambulatory [place] [facility] 8 [facility] ing:OLS.AVEC Repository 12/27/2017 [id number] Ambulatory [place] 5 [facility] ing:OLS.AVEC Repository 12/20/2017 [id number] Ambulatory Jose Jose 4 [facility] ing:OLS.AVEC Repository 12/14/2017 [id number] Ambulatory [place] 6 [facility] ing:OLS.AVEC Repository 12/12/2017 [id number] Ambulatory [place] 9 [facility] ing:OLS.AVEC Repository 12/06/2017 [id number] Ambulatory [place] Jose 3 [facility] ing:OLS.AVEC Repository 11/29/2017 [id number] Ambulatory [place] 0 [facility] ing:OLS.AVEC Repository 11/24/2017 [id number] Ambulatory Jose [place] 9 [facility] ing:OLS.AVEC Repository 11/22/2017 [id number] Ambulatory Jose Post[place] 5 [facility] ing:OLS.AVEC Repository 2017 [id number] Ambulatory [place] Jose 0 [facility] ing:OLS.AVED Repository 11/08/2017 [id number] Ambulatory [place] Jose 0 [facility] ing:OLS.AVEB Repository 11/01/2017 [id number] Ambulatory Jose [place] 7 [facility] ing:OLS.AVEB Repository 10/24/2017 [id number] Ambulatory Jose Post[place] 2 [facility] ing:OLS.AVEC Repository 10/19/2017 [id number] Ambulatory Jose Jose 7 [facility] ing:OLS.AVEB Repository 10/13/2017 [id number] Ambulatory Jose Post[place] 7 [facility] ing:OLS.AVEB Repository 10/10/2017 [id number] Ambulatory [place] 1 [facility] ing:OLS.AVED Repository 10/07/2017 [id number] Ambulatory Jose Jose 8 [facility] ing:OLS.AVEB Repository 10/04/2017/ [id number] Harvey More Inpatient Jose Jose 8 7 Encounter [facility] ing:PCURoom: Repository [id number]: 1 10/04/2017 [id number] Harvey More Ambulatory BMSBuilding:B Jose 6 [facility] Repository 10/04/2017 [id number] Derik, Harvey Ambulatory BMSBuilding:B Jose 4 [facility] Repository 10/04/2017 [id number] Jonaeem, Harvey Ambulatory BMSBuilding:B Jose 4 [facility] Repository 09/28/2017/ [id number] Emergency Jose Poston 8 3 [facility] ing:ED Repository 07/13/2017 [id number] Ambulatory Jose Post[place] 0 [facility] ing:LABSPEC Repository PAYERS PAYERS ENCOUNTER GUARANTOR PAYER SUBSCRIBER SOURCE 01/31/2018 CHA A Primary NOT GIVENUNK Jose [id number] E. Insurance:SELF PAY [facility] Number: Effective Repository OF Date:2018-01-31 [place], [place] [address]Kbx: () 01/24/2018 CHA A Primary NOT GIVENUNK Jose [id number] E. Insurance:SELF PAY [facility] Number: Effective Repository OF Date:2018-01-24 [place], [place] [address]Tle: () 01/17/2018 CHA A Primary CHA A Jose [id number] E. [facility] *IN [facility] [id number] Number: Repository [place] [id number] [facility], Date:6002-97-86GK [place] [address]Quq: [address] [place] [phone]: [phone] ([phone] 01/17/2018 Secondary NOT GIVENUNK Jose Insurance:SELF PAY [facility] Number: Effective Repository Date:2018-01-17 01/10/2018 CHA A Primary NOT GIVENUNK Jose [id number] E. Insurance:SELF PAY [facility] Number: Effective Repository OF Date:2018-01-10 [place] [address]Taw: () 01/03/2018 CHA A Primary CHA A Jose [id number] E. Insurance:[facility]: [facility] *IN [facility] [id number] [facility] Number: Repository OF [id number] [facility], Date:5115-90-62EV [facility] [address]Iiq: [address] [place] [phone]: [phone] 01/03/2018 Secondary NOT GIVENUNK Jose Insurance:SELF PAY [facility] Number: Effective Repository Date:2018-01-03 12/27/2017 CHA A Primary CHA A Poston [id number] E. Insurance:[facility]: [facility] *IN [facility] [id number] [facility] Number: Repository OF [id number] [facility], Date:3114-55-61BW [facility] [address]Ghq: [address] [place] [phone]: [phone]) (HP) [phone] 12/27/2017 Secondary NOT GIVENUNK Jose Insurance:SELF PAY [facility] Number: Effective Repository Date:2017-12-27 12/20/2017 CHA A Primary NOT GIVENUNK Jose [id number] E. Insurance:SELF PAY [facility] Number: Effective Repository OF Date:2017-12-20 [place] [address]Hvk: () 12/14/2017 CHA A Primary CHA A Jose [id number] E. Insurance:[facility] BUT[facility]: [facility] *IN [facility] [id number] [facility] Number: Repository [place] [id number] [place], Date:7542-11-62WS [facility] [place] [address]Gan: [address] [place] [phone]: [phone] (HP) [phone] 12/14/2017 Secondary NOT GIVENUNK Poston Insurance:SELF PAY [facility] Number: Effective Repository Date:2017-12-14 12/12/2017 CHA A Primary CHA A Poston [id number] E. Insurance:[facility]: Community [place] *IN [facility] [id number] Number: Repository [place] [id number] [place], Date:7117-03-55ZT [facility] [address]Gst: [address] [place] [phone]: [phone]) (HP) [phone] 12/12/2017 Secondary NOT GIVENUNK Jose Insurance:SELF PAY [facility] Number: Effective Repository Date:2017-12-12 12/06/2017 CHA A Primary CHA A Poston [id number] E. Insurance:[facility]: Community [place] *IN [facility] [id number] [facility] Number: Repository [place] [id number] [place], Date:6582-57-96NU [facility] [address]Bbm: [address] [place] [phone]: [phone] (HP) [phone] 12/06/2017 Secondary NOT GIVENUNK Jose Insurance:SELF PAY [facility] Number: Effective Repository Date:2017-12-06 11/29/2017 CHA A Primary CHA A Jose [id number] E. Insurance:[facility] BUT[facility]ERD[facility]: Community [place] *IN [facility] [id number] [facility] Number: Repository OF [id number] [place], Date:2949-41-22MK [facility] [place] [address]Cpz: [address] [place] [phone]: [phone]) (HP) [phone] 11/29/2017 Secondary NOT GIVENUNK Poston Insurance:SELF PAY [facility] Number: Effective Repository Date:2017-11-29 11/24/2017 CHA Tejeda Primary CHA Garcia [id number] E. [facility]: Community [place] *IN [facility] [id number] Lang[facility] Hospital [facility] Number: Repository OF [id number] [place], Date:1066-40-63HS [facility] [address]Isq: [address] [place] [phone]: [phone]) (HP) [phone] 11/24/2017 Secondary NOT GIVENUNK Jose Insurance:SELF PAY [facility] Number: Effective Repository Date:2017-11-24 11/22/2017 CHA Tejeda Primary CHA Pooleoster [id number] E. Insurance:[facility] BUTLERD[facility]: Community [place] *IN [facility] [id number] [facility] Number: Repository OF [id number] [facility], Date:2214-15-39PM [facility] [address]Enk: [address] [place] [phone]: [phone]) (HP) [phone] 11/22/2017 Secondary NOT GIVENUNK Poston Insurance:SELF PAY [facility] Number: Effective Repository Date:2017-11-22 2017 CHA Tejeda Primary CHA [place] [id number] E. Insurance:[facility] BUTLERDOB: Community [place] *IN [facility] [id number] [facility] Number: Repository OF [id number] [facility], Date:9541-04-95JK [facility] [address]Aks: [address] [place] [phone]: ([phone]) (HP) [phone] Secondary NOT GIVENUNK Jose Insurance:SELF PAY [facility] Number: Effective Repository Date:2017 11/08/2017 CHA A Primary CHA A Poston [id number] E. Insurance:[facility] BUTLERD[facility]: [facility] *IN [facility] [id number] [facility] Number: Repository OF [id number] [place], Date:1412-80-22YX [facility] [place] [address]Hdg: [address] [place] [phone]: [phone]) (HP) [phone] 11/08/2017 Secondary NOT GIVENUNK Jose Insurance:SELF PAY [facility] Number: Effective Repository Date:2017-11-08 11/01/2017 CHA A Primary CHA A Jose [id number] E. Insurance:[facility] BUTLERD[facility]: [facility] *IN [facility] [id number] [facility] Number: Repository [place] [id number] [place], Date:9121-59-34RI [facility] [address]Xqk: [address] [place] [address] ) [phone]: [phone]) (HP) [phone] 11/01/2017 Secondary NOT GIVENUNK Poston Insurance:SELF PAY [facility] Number: Effective Repository Date:2017-11-01 10/24/2017 CHA A Primary CHA A Jose [id number] E. Insurance:[facility]IN [facility] [id number] [facility] Number: Repository OF [id number] [facility], Date:8687-44-25RH [facility] [address]Xgh: [address] [place] [phone]: ([phone]) (HP) [phone] 10/24/2017 Secondary NOT GIVENUNK Jose Insurance:SELF PAY [facility] Number: Effective Repository Date:2017-10-24 10/19/2017 CHA A Primary CHA A Jose [id number] E. Insurance:[facility]: [facility] *IN [facility] [id number] [facility] Number: Repository [place] [id number] [place], Date:4288-99-15[address] [place] [address]Gmi: [address] [place] [phone]: ([phone]) (HP) [phone] 10/19/2017 Secondary NOT GIVENUNK Jose Insurance:SELF PAY [facility] Number: Effective Repository Date:2017-10-19 10/13/2017 CHA A Primary CHA A Poston [id number] E. Insurance:[facility]: Community [facility] *IN [facility] [id number] [facility] Number: Repository OF [id number] [place], Date:4911-12-19HB [facility] [address]Vwy: [address] [place] [phone]: ([phone]) () [phone] 10/13/2017 Secondary NOT GIVENUNK Jose Insurance:SELF PAY [facility] Number: Effective Repository Date:2017-10-13 10/10/2017 CHA A Primary CHA A Jose [id number] E. Insurance:[facility] BUTLERD[facility]: Community [place] *IN [facility] [id number] Lang[facility] Number: Repository OF [id number] [place], Date:6085-60-32HV [facility] [address]Zsw: [address] [place] [phone]: ([phone]) (HP) [phone] 10/10/2017 Secondary NOT GIVENUNK Ojse Insurance:SELF PAY [facility] Number: Effective Repository Date:2017-10-10 10/07/2017 CHA A Primary CHA A Jose [id number] MERLYN Insurance:[facility] [place] [facility] [id number] Hospital [address]Uqr: (330) Number: Repository [phone] () [id number] Date:8050-56-81NB [address] [address]PZ: 10/07/2017 Secondary NOT GIVENUNK Jose Insurance:SELF PAY [facility] Number: Effective Repository Date:2017-10-07 10/04/2017 CHA A Primary CHA A Jose [id number] MERLYN [facility] [place] [facility] [id number] Hospital [address]Bqr: ([phone]) Number: Repository [phone] () [id number] Date:[id number] [address] [address]EH: 10/04/2017 Secondary NOT GIVENUNK [place] Insurance:SELF PAY [facility] Number: Effective Repository Date:2017-10-04 10/04/2017 CHA A Primary CHA A [place] [id number] [place] [facility] [place] [facility] [id number] Hospital [address]Hwm: ([phone]) Number: Repository [phone] () [id number] Date:[id number] [address]N[place]: 10/04/2017 Secondary NOT GIVENUNK Jose Insurance:SELF PAY [facility] Number: Effective Repository Date:2017-10-04 10/04/2017 CHA A Primary CHA A [place] [id number] [place] [facility] [place] [facility] [id number] Hospital [address]Eqk: ([phone]) Number: Repository [phone] () [id number] Date:[id number] [address]GL: 10/04/2017 Secondary NOT GIVENUNK Jose Insurance:SELF PAY [facility] Number: Effective Repository Date:2017-10-04 10/04/2017 CHA A Primary CHA A Jose [id number] [place] [facility]: [place] [facility] [id number] Hospital [address]Aci: ([phone]) Number: Repository [phone] () [id number] Date:2199-07-69HQ [address] [address]NF: 10/04/2017 Secondary NOT GIVENUNK Jose Insurance:SELF PAY [facility] Number: Effective Repository Date:2017-10-04 09/28/2017 CHA A Primary CHA A Jose [id number] [place] [facility] [place] [facility] [id number] Hospital [address]Goi: ([phone]) Number: Repository [phone] () [id number] Date:[id number] [address] [address]HW: 09/28/2017 Secondary NOT GIVENUNK Jose Insurance:SELF PAY [facility] Number: Effective Repository Date:2017-09-28 07/13/2017 CHA A Primary CHA A Jose [id number] [place] [facility] [place] [facility] [id number] Hospital [address]Ucu: (330) Number: Repository [phone] () [id number] Date:[id number] [address] [address]AL: 07/13/2017 Secondary NOT GIVENUNK Jose Insurance:SELF PAY [facility] Number: Effective Repository Date:2017-07-13
== END ==
LOC: OLS.AVEC 05:00
PROVIDERS: Visit Provider Family Medicine
DX: D64.9 Anemia, unspecified (principal); E11.9 Type 2 diabetes mellitus without complications
CPT/HCPCS: 36415; 80048; 85025

== ENCOUNTER → 2018-01-17 05:00 | Outpatient (REF) | payer MEDICARE, SELFPAY ==
[2018-01-17 09:42] LABS: Absolute Lymphocyte Count 1.43 X10^3/ul (0.83-4.51); Basophil# 0.01 X10^3/uL; Basophil% 0.2 % (0-1); Eosinophil# 0.24 X10^3/uL; Eosinophils% 4.8 % (0-5); Hematocrit 35.8 % (37-47); Hemoglobin 10.8 g/dl (12.0-15.0); Lymphocyte # 1.43 X10^3/ul (4.0); Lymphocyte % 28.4 % (19-41); Mean Corp Hgb Conc 30.2 g/gl (32-36); Mean Corpuscular Hgb 28.6 pg (27.0-32.0); Mean Platelet Vol. 11.1 fl (6.2-12.0); Monocyte# 0.32 X10^3/uL; Monocyte% 6.4 % (0-10); Neutrophil # 3.03 X10^3/uL (2.7-7.7); Neutrophil % 60.2 % (47-70); Platelet Count 146 K/mm3 (150-450); RBC Distribution Width CV 13.9 % (11.6-14.6); RBC Distribution Width SD 47.7 fl (35.1-43.9); Red Blood Count 3.77 M/mm3 (4.2-5.4)
[2018-01-17 09:44] LABS: POSITIVE COUNT NO; POSITIVE DIFFERENTIAL NO; POSITIVE MORPHOLOGY NO
[2018-01-17 10:05] LABS: Anion Gap 7 (5-15); BUN 40 mg/dL (7-18); BUN/Creat Ratio 27.4 RATIO (10-20); Calcium,Total 8.3 mg/dL (8.5-10.1); Chloride 102 mmol/L (98-107); Creatinine, Serum 1.46 mg/dL (0.55-1.02); EST Glomerular Filtration Rate 37 mL/min (>60); Est Glom Filt Rate - Afr Amer 45 mL/min (>60); Glucose 97 mg/dL (74-106); Potassium 4.1 mmol/L (3.5-5.1); Sodium Level 141 mmol/L (136-145)
== END ==
LOC: OLS.AVEC 05:00
PROVIDERS: Visit Provider Family Medicine
DX: D64.9 Anemia, unspecified (principal); E11.9 Type 2 diabetes mellitus without complications
CPT/HCPCS: 36415; 80048; 85025

== ENCOUNTER → 2018-01-24 04:00 | Outpatient (REF) | payer MEDICARE, SELFPAY ==
[2018-01-24 08:30] LABS: Absolute Lymphocyte Count 1.54 X10^3/ul (0.83-4.51); Absolute Neutrophil Count 3.4 X10^3/uL (2.0-7.7); Basophil# 0.01 X10^3/uL; Basophil% 0.2 % (0-1); Eosinophils% 5.3 % (0-5); Hematocrit 37.2 % (37-47); Hemoglobin 11.4 g/dl (12.0-15.0); Lymphocyte # 1.54 X10^3/ul (4.0); Lymphocyte % 27.3 % (19-41); Mean Corp Hgb Conc 30.6 g/gl (32-36); Mean Corpuscular Hgb 29.1 pg (27.0-32.0); Mean Corpuscular Volume 94.9 fL (81-99); Mean Platelet Vol. 11.2 fl (6.2-12.0); Monocyte# 0.37 X10^3/uL; Monocyte% 6.5 % (0-10); Neutrophil # 3.42 X10^3/uL (2.7-7.7); Neutrophil % 60.5 % (47-70); Platelet Count 138 K/mm3 (150-450); RBC Distribution Width CV 13.7 % (11.6-14.6); RBC Distribution Width SD 45.1 fl (35.1-43.9); Red Blood Count 3.92 M/mm3 (4.2-5.4); White Blood Count 5.7 K/mm3 (4.4-11.0)
[2018-01-24 08:33] LABS: POSITIVE COUNT NO; POSITIVE DIFFERENTIAL NO; POSITIVE MORPHOLOGY NO
[2018-01-24 08:40] LABS: Anion Gap 7 (5-15); BUN 39 mg/dL (7-18); BUN/Creat Ratio 26.7 RATIO (10-20); Chloride 104 mmol/L (98-107); Creatinine, Serum 1.46 mg/dL (0.55-1.02); EST Glomerular Filtration Rate 37 mL/min (>60); Est Glom Filt Rate - Afr Amer 45 mL/min (>60); Glucose 101 mg/dL (74-106); Potassium 3.8 mmol/L (3.5-5.1); Sodium Level 141 mmol/L (136-145)
--- OUTSIDE RECORDS SUMMARY | 2018-03-12 04:18 | XMS RPT_ITS ---
:1945 Author Organization [place] Support Name Relationship Address Phone FifiGurpreet Unavailable [address] + [place] [address] R Unavailable Unavailable Unavailable Gurpreet Calix Unavailable [address] + [place] [address] R Unavailable Unavailable Unavailable Gurpreet Calix Unavailable [address] + [place] [address] R Unavailable Unavailable Unavailable Gurpreet Calix Unavailable [address] + [place] [address] R Unavailable Unavailable Unavailable Gurpreet Calix Unavailable [address] + [place] [address] R Unavailable Unavailable Unavailable Gurpreet Calix Unavailable [address] + [place] [address] R Unavailable Unavailable Unavailable Gurpreet Calix Unavailable [address] + [place] [address] R Unavailable Unavailable Unavailable Gurpreet Calix Unavailable [address] + [place] [address] R Unavailable Unavailable Unavailable Gurpreet Calix Unavailable [address] + [place] [address] R Unavailable Unavailable Unavailable Gurpreet Calix Unavailable [address] + [place] [address] R Unavailable Unavailable Unavailable Gurpreet Calix Unavailable [address] + [place] [address] R Unavailable Unavailable Unavailable Gurpreet Calix Unavailable [address] + [place] [address] R Unavailable Unavailable Unavailable Gurpreet Calix Unavailable [address] + [place] [address] R Unavailable Unavailable Unavailable Calix, Gurpreet Unavailable [address] + [place] [address] R Unavailable Unavailable Unavailable Calix, Gurpreet Unavailable [address] + [place] [address] R Unavailable Unavailable Unavailable Calix, Gurpreet Unavailable [address] + [place] [address] R Unavailable Unavailable Unavailable Calix, Gurpreet Unavailable [address] + [place] [address] R Unavailable Unavailable Unavailable Calix, Gurpreet Unavailable [address] + [place] [address] R Unavailable Unavailable Unavailable Calix, Gurpreet Unavailable [address] + [place] [address] R Unavailable Unavailable Unavailable Calix, Gurpreet Unavailable [address] + [place] [address] R Unavailable Unavailable Unavailable Calix, Gurpreet Unavailable [address] + [place] [address] R Unavailable Unavailable Unavailable Calix, Gurpreet Unavailable [address] + [place] [address] R Unavailable Unavailable Unavailable Calix, Gurpreet Unavailable [address] + [place] [address] R Unavailable Unavailable Unavailable Calix, Gurpreet Unavailable [address] + [place] [address] R Unavailable Unavailable Unavailable Calix, Gurpreet Unavailable [address] + [place] [address] R Unavailable Unavailable Unavailable CALIX, GURPREET Unavailable [address] + [place] [address] R Unavailable Unavailable Unavailable CALIX, GURPREET Unavailable [address] + [place] [address] R Unavailable Unavailable Unavailable CALIX, GURPREET Unavailable [address] + [place] [address] R Unavailable Unavailable Unavailable CALIX, GURPREET Unavailable [address] + [place] [address] R Unavailable Unavailable Unavailable Care Team Providers Name Role Phone Mike Shen Attending Unavailable Mike Shen Attending Unavailable Shen, Mike Attending Unavailable Shen, Mike Attending Unavailable Shen, Mike Attending Unavailable Shen, Mike Attending Unavailable Shen, Mike Attending Unavailable Shen, Mike Attending Unavailable Shen, Mike Attending Unavailable Shen, Mike Attending Unavailable Shen, Mike Attending Unavailable Shen, Mike Attending Unavailable Shen, Mike Attending Unavailable Shen, Mike Attending Unavailable Shen, Mike Attending Unavailable Shen, Mkie Attending Unavailable Shen, Mike Attending Unavailable Shen, Mike Attending Unavailable Shen, Mike Attending Unavailable Shen, Mike Attending Unavailable Shen, Mike Attending Unavailable Shen, Mike Attending Unavailable Jopperi, Harvey Admitting Unavailable Noah Anyi F. SURGERY TECH-C Primary Care Unavailable Kotsonis, Santos F Consulting Unavailable Kotsonis, Santos F Attending Unavailable Jopperi, Harvey Admitting Unavailable Noah, Anyi F. SURGERY TECH-C Primary Care Unavailable Kotsonis, Santos F Consulting Unavailable Kotsonis, Santos F Attending Unavailable Jopperi, Harvey Admitting Unavailable Jopperi, Harvey Attending Unavailable [place] Miguel Zamoraara F. SURGERY TECH-C Primary Care Unavailable Jopperi, Harvey Consulting Unavailable Noah Anyi F. SURGERY TECH-C Primary Care Unavailable Jopperi, Harvey Admitting Unavailable Kotsonis, Santos F Attending Unavailable Primay Care Physicia, No Primary Care Unavailable Schwiger, Harvey Attending Unavailable Noah, Anyi F. SURGERY TECH-C Attending Unavailable Primay Care Physicia, No Primary Care Unavailable Noah, Anyi F. SURGERY TECH-C Referring Unavailable Shen, Mike Attending Unavailable PROBLEMS PROBLEMS DATE TYPE CONDITION / CODE ATTENDING STATUS SOURCE 02/24/2018 Unknown Z13.30 - Encounter Ac [facility] for screening Community examination for Hospital mental health and Repository behavioral disorders, unspecified / Z13.30(ICD-10) 02/20/2018 Unknown E03.9 - Shen, Mike Active [place] Hypothyroidism, Community unspecified / Hospital E03.9(ICD-10) Repository 02/08/2018 Unknown N18.9 - Chronic Shen, Mike Active [place] kidney disease, Community unspecified / Hospital N18.9(ICD-10) Repository 02/03/2018 Unknown D64.9 - Anemia, Shen Mike Active [place] unspecified / Community D64.9(ICD-10) Hospital Repository 02/03/2018 Unknown E11.9 - Type 2 Shen Mike Active [place] diabetes mellitus Community without Hospital complications / Repository E11.9(ICD-10) 01/13/2018 Unknown E78.5 - Mike Shen Active [place] Hyperlipidemia, Community unspecified / Hospital E78.5(ICD-10) Repository 01/04/2018 Unknown I10 - Essential Mike Shen Active [place] (primary) Community hypertension / Hospital I10(ICD-10) Repository 12/28/2017 Unknown Z78.9 - Other Mike Shen Active [place] specified health Community status / Hospital Z78.9(ICD-10) Repository 12/23/2017 Unknown N39.0 - Urinary Mike [place] Active [place] tract infection, Community site not specified Hospital / N39.0(ICD-10) Repository 11/25/2017 Unknown R03.1 - Nonspecific Mike [place] Active [place] low blood-pressure Community reading / Hospital R03.1(ICD-10) Repository 10/20/2017 Unknown L89.90 - Pressure Kotsonis, Active [place] ulcer of Santos F Community unspecified site, Hospital unspecified stage / Repository L89.90(ICD-10) PROCEDURES PROCEDURES No Procedure Records FoundRESULTS RESULTS CBC W/DIFF, AUTOMATED Collected: 02/28/2018 Status: F Source: [place] 6:58 AM [facility] REPOSITORY Order Comment: 170 TYPE CODE TESTS RESULT OUT OF RANGE REFERENCE UNITS LAB L100.1000 4.4-11.0 K/mm3 Normal WBC 6.5 LAB L100.1200 4.2-5.4 M/mm3 Low RBC 3.89 LAB L100.1300 12.0-15.0 g/dl Low HGB 10.9 LAB L100.1400 37-47 % Low HCT 36.8 LAB L100.1500 81-99 fL Normal MCV 94.6 LAB L100.1600 27.0-32.0 pg Normal MCH 28.0 LAB L100.1700 32-36 g/gl Low MCHC 29.6 LAB L100.1810 11.6-14.6 % Normal RDW CV 14.4 LAB L100.1820 35.1-43.9 fl High RDW SD 48.9 LAB L100.1900 150-450 K/mm3 Normal PLT 151 LAB L100.2000 6.2-12.0 fl Normal MPV 11.1 LAB L100.2100 47-70 % Normal NEUT% 67.3 LAB L100.2200 19-41 % Normal LY% 22.9 LAB L100.2300 0-10 % Normal MONO% 6.0 LAB L100.2400 0-5 % Normal EO% 3.4 LAB L100.2500 0-1 % Normal BASO% 0.2 LAB L100.2550 0.0-0.9 % Normal IM GRAN % 0.200 Result Comment: IG% - Immature Granulocytes (promyelocytes, myelocytes and metamyelocytes) > 1% indicates that a LEFT SHIFT is Present. LAB L100.2620 2.0-7.7 X10 3/uL Normal Absolute Neut 4.4 LAB L100.2720 0.83-4.51 X10 3/ul Normal Absolute Lymph 1.49 Performed By: #### L100.0100 #### [facility] [address] [place], [address] BASIC METABOLIC Collected: 02/28/2018 Status: F Source: [place] PROFILE (BMP) 6:58 AM [facility] REPOSITORY Order Comment: 170 TYPE CODE TESTS RESULT OUT OF RANGE REFERENCE UNITS LAB L501.0100 74-106 mg/dL Normal GLU 99 Result Comment: Please note revised GLUCOSE reference range effective 2017. LAB L501.1000 7-18 mg/dL High BUN 33 LAB L501.1100 0.55-1.02 mg/dL High CREAT,SERUM 1.49 Result Comment: The validity of the calculated GFR AND GFRAA in patients over 70 years has not been determined. Clinical correlation is essential. LAB L501.1110 >60 mL/min Low EST GFR 36 Result Comment: Non- GFR Calc LAB L501.1115 >60 mL/min Low EST GFR - AA 44 Result Comment: GFR Calc LAB L501.1300 10-20 RATIO High BUN/CRE 22.1 LAB L501.2200 8.5-10.1 mg/dL Low CA 7.9 LAB L501.5300 136-145 mmol/L NA Normal 142 LAB L501.5600 3.5-5.1 mmol/L K Normal 3.7 LAB L501.5900 98-107 mmol/L CL Normal 106 LAB L501.6100 21.0-32.0 mmol/L Normal CO2 31.0 LAB L501.6200 5-15 Normal GAP 5 Performed By: #### L500.2500 #### [facility] [address] [place], [address] HEMOGLOBIN A1C Collected: 02/09/2018 Status: F Source: [place] 6:15 AM [facility] REPOSITORY Order Comment: ROOM 170 TYPE CODE TESTS RESULT OUT OF RANGE REFERENCE UNITS LAB L501.9985 4.2-6.3 % Normal HGB A1C 5.6 Performed By: #### L501.9985 #### [facility] [address] [place], [address] COMPREHENSIVE METABOLIC Collected: 02/09/2018 Status: F Source: [facility] 6:15 AM [facility] REPOSITORY Order Comment: ROOM 170 TYPE CODE TESTS RESULT OUT OF RANGE REFERENCE UNITS LAB L501.0100 74-106 mg/dL Normal GLU 105 Result Comment: Fasting Glucose result from 100 to 125 mg/dL suggests IMPAIRED HOMEOSTASIS per A.D.A. criteria. Please note revised GLUCOSE reference range effective 2017. LAB L501.1000 7-18 mg/dL High BUN 31 LAB L501.1100 0.55-1.02 mg/dL High CREAT,SERUM 1.43 Result Comment: The validity of the calculated GFR AND GFRAA in patients over 70 years has not been determined. Clinical correlation is essential. LAB L501.1110 >60 mL/min Low EST GFR 38 Result Comment: Non- GFR Calc LAB L501.1115 >60 mL/min Low EST GFR - AA 46 Result Comment: GFR Calc LAB L501.1300 10-20 RATIO High BUN/CRE 21.7 LAB L501.1500 6.4-8.2 g/dL T Normal PROT 6.5 LAB L501.1800 3.2-5.0 g/dL Low ALB 2.3 LAB L501.1950 2.2-4.2 g/dL Normal GLOB 4.2 LAB L501.2000 0.9-2.4 RATIO Low A/G 0.5 LAB L501.2200 8.5-10.1 mg/dL Low CA 8.2 LAB L501.4100 15-37 U/L Normal AST 17 LAB L501.4305 45-117 U/L High ALK P 129 LAB L501.4405 13-56 U/L Normal ALT 14 LAB L501.4600 0.20-1.00 mg/dL T Normal BILI 0.70 LAB L501.5300 136-145 mmol/L NA Normal 141 LAB L501.5600 3.5-5.1 mmol/L K Normal 4.0 LAB L501.5900 98-107 mmol/L CL Normal 103 LAB L501.6100 21.0-32.0 mmol/L Normal CO2 32.0 LAB L501.6200 5-15 Normal GAP 6 Performed By: #### L500.4050, L501.9520 #### [facility] [address] [place], [place], [address] THYROID STIM HORMONE Collected: 02/09/2018 Status: F Source: [place] (TSH) 6:15 AM [facility] REPOSITORY Order Comment: ROOM 170 TYPE CODE TESTS RESULT OUT OF RANGE REFERENCE UNITS LAB L501.9520 0.358-3.74 uIU/mL Normal TSH 1.62 Performed By: #### L500.4050, L501.9520 #### [facility] [address] [place], [place], [address] CBC W/DIFF, AUTOMATED Collected: 01/31/2018 Status: F Source: [place] 5:45 AM [facility] REPOSITORY Order Comment: 170 TYPE CODE TESTS [...] Lymph 1.50 Performed By: #### L100.0100 #### [facility] [address] [place], [address] BASIC METABOLIC Collected: 01/31/2018 Status: F Source: [place] PROFILE ([facility]) 5:45 AM [facility] REPOSITORY Order Comment: 170 TYPE CODE TESTS [...] GAP 5 Performed By: #### L500.2500 #### [facility] [address] [place], [address] CBC W/DIFF, AUTOMATED Collected: 01/24/2018 Status: F Source: [place] 6:45 AM [facility] REPOSITORY Order Comment: 170 TYPE CODE TESTS [...] Lymph 1.54 Performed By: #### L100.0100 #### [facility] [address] [facility] [address] [place], [place], [id number] BASIC METABOLIC Collected: 01/24/2018 Status: F Source: [place] PROFILE (BMP) 6:45 AM [facility] REPOSITORY Order Comment: 170 TYPE CODE TESTS [...] GAP 7 Performed By: #### L500.2500 #### [facility] [address] [place], [address] CBC W/DIFF, AUTOMATED Collected: 01/17/2018 Status: F Source: [place] 7:50 AM [facility] REPOSITORY Order Comment: 170 TYPE CODE TESTS [...] Lymph 1.43 Performed By: #### L100.0100 #### [facility] [address] [place], [place], [address] BASIC METABOLIC Collected: 01/17/2018 Status: F Source: [place] PROFILE (BMP) 7:50 AM [facility] REPOSITORY Order Comment: 170 TYPE CODE TESTS [...] GAP 7 Performed By: #### L500.2500 #### [facility] [address] [place], [address] CBC W/DIFF, AUTOMATED Collected: 01/10/2018 Status: F Source: [place] 6:00 AM [facility] REPOSITORY Order Comment: 170 TYPE CODE TESTS [...] Lymph 1.10 Performed By: #### L100.0100 #### [facility] [address] [place], [address] BASIC METABOLIC Collected: 01/10/2018 Status: F Source: [place] PROFILE (BMP) 6:00 AM [facility] REPOSITORY Order Comment: 170 TYPE CODE TESTS [...] GAP 4 Performed By: #### L500.2500 #### [facility] [address] [place], [place], [address] BASIC METABOLIC Collected: 01/03/2018 Status: F Source: [place] PROFILE (BMP) 7:35 AM [facility] REPOSITORY TYPE CODE TESTS RESULT OUT OF [...] GAP 8 Performed By: #### L500.2500 #### [facility] [address] [place], [place], [address] CBC W/DIFF, AUTOMATED Collected: 01/03/2018 Status: F Source: [place] 7:35 AM [facility] REPOSITORY TYPE CODE TESTS RESULT OUT OF [...] Lymph 1.60 Performed By: #### L100.0100 #### [facility] [address] [place], [address] CBC W/DIFF, AUTOMATED Collected: 12/27/2017 Status: F Source: [place] 6:45 AM [facility] REPOSITORY Order Comment: 170 TYPE CODE TESTS [...] Lymph 1.09 Performed By: #### L100.0100 #### [facility] [address] [place] [address]. [place], [place], [address] BASIC METABOLIC Collected: 12/27/2017 Status: F Source: [place] PROFILE (BMP) 6:45 AM [facility] REPOSITORY Order Comment: 170 TYPE CODE TESTS [...] GAP 5 Performed By: #### L500.2500 #### [facility] [address] [place], [address] CBC W/DIFF, AUTOMATED Collected: 12/20/2017 Status: F Source: [place] 7:45 AM [facility] REPOSITORY Order Comment: ROOM 170 TYPE CODE [...] Lymph 1.05 Performed By: #### L100.0100 #### [facility] [address] [place], [address] BASIC METABOLIC Collected: 12/20/2017 Status: F Source: [place]AS[place] PROFILE ([facility]) 7:45 AM [facility] REPOSITORY Order Comment: ROOM 170 TYPE CODE [...] GAP 4 Performed By: #### L500.2500 #### [facility] [address] [place], [address] POTASSIUM Collected: 12/14/2017 Status: F Source: [place] 6:40 AM [facility] REPOSITORY Order Comment: ROOM 170 TYPE CODE TESTS RESULT OUT OF RANGE REFERENCE UNITS LAB L501.5600 3.5-5.1 mmol/L Normal K 4.3 Performed By: #### L501.5600 #### [facility] [address] [place], [address] CBC W/DIFF, AUTOMATED Collected: 12/12/2017 Status: F Source: [place] 5:30 AM [facility] REPOSITORY TYPE CODE TESTS RESULT OUT OF [...] Lymph 1.12 Performed By: #### L100.0100 #### [facility] [address] [facility] [place], [address] HEMOGLOBIN A1C Collected: 12/12/2017 Status: F Source: [place] 5:30 AM [facility] REPOSITORY Order Comment: ROOM 170 TYPE CODE TESTS RESULT OUT OF RANGE REFERENCE UNITS LAB L501.9985 4.2-6.3 % Normal HGB A1C 4.9 Performed By: #### L501.9985 #### [facility] [address] [place], [address] COMPREHENSIVE METABOLIC Collected: 12/12/2017 Status: F Source: [facility] 5:30 AM [facility] REPOSITORY Order Comment: ROOM 170 TYPE CODE [...] 3 Performed By: #### L500.4050, L501.9520 #### [facility] [address] [place], [place], [address] THYROID STIM HORMONE Collected: 12/12/2017 Status: F Source: [place] (TSH) 5:30 AM [facility] REPOSITORY Order Comment: ROOM 170 TYPE CODE TESTS RESULT OUT OF RANGE REFERENCE UNITS LAB L501.9520 0.358-3.74 uIU/mL Normal TSH 3.16 Performed By: #### L500.4050, L501.9520 #### [facility] [address] [place], [address] CBC W/DIFF, AUTOMATED Collected: 12/06/2017 Status: F Source: [place] 6:25 AM [facility] REPOSITORY Order Comment: ROOM 170 TYPE CODE [...] Lymph 1.38 Performed By: #### L100.0100 #### [facility] [address] [place], [address] BASIC METABOLIC Collected: 12/06/2017 Status: F Source: [place] PROFILE ([facility]) 6:25 AM [facility] REPOSITORY Order Comment: ROOM 170 TYPE CODE [...] GAP 5 Performed By: #### L500.2500 #### [facility] [address] [place], [place], [address] CBC W/DIFF, AUTOMATED Collected: 11/29/2017 Status: F Source: [place] 5:40 AM [facility] REPOSITORY Order Comment: RM 170 TYPE CODE [...] Lymph 1.48 Performed By: #### L100.0100 #### [facility] [address] [place], [place], [address] BASIC METABOLIC Collected: 11/29/2017 Status: F Source: [place] PROFILE (BMP) 5:00 AM [facility] REPOSITORY Order Comment: RM 170 TYPE CODE [...] GAP 6 Performed By: #### L500.2500 #### [facility] [address] [place], [place], [id number] URINALYSIS, COMPLETE Collected: 11/29/2017 Status: F Source: [place] 5:00 AM [facility] REPOSITORY Order Comment: How was Urine Obtained? [...] TRIPLE PHOS Performed By: #### L400.0001 #### [facility] [address] [place], [place], [address] Observed: 11/29/2017 Status: F Source: [place] CULTURE, URINE 5:00 AM [facility] REPOSITORY Urine Culture ORGANISM 1: Mixed Gram Pos AND Gram Neg Org Tracy Count 50,000-80,000 MIX CULTURE Mixed contaminants. Submit a new specimen if indicated. Performed By: #### M100.0650 #### [facility] [address] [facility] [place], [address] URINALYSIS, COMPLETE Collected: 11/24/2017 Status: F Source: [place] 9:45 PM [facility] REPOSITORY Order Comment: Comments: CLAMPED TEMPLE How [...] TRIPLE PHOS Performed By: #### L400.0001 #### [facility] [address] [place], [address] Observed: 11/24/2017 Status: F Source: [place] CULTURE, URINE 9:45 PM [facility] REPOSITORY Urine Culture ORGANISM 1: Proteus mirabilis Tracy Count >100,000 Proteus mirabilis: REACTION Amoxacillin/Clavulanic Acid [...] >=320 R (NF) indicates non-formulary drug at [facility]. Approval by Infectious Disease Specialist required before non-formulary drugs may be ordered and/or dispensed. Performed By: #### M100.0650 #### [facility] [place], [address] CBC W/DIFF, AUTOMATED Collected: 11/22/2017 Status: F Source: [place] 5:35 AM [facility] REPOSITORY Order Comment: ROOM 170 TYPE CODE [...] Lymph 1.72 Performed By: #### L100.0100 #### [facility] [address] [place], [place], [address] BASIC METABOLIC Collected: 11/22/2017 Status: F Source: [place] PROFILE (BMP) 5:35 AM [facility] REPOSITORY Order Comment: ROOM 170 TYPE CODE [...] GAP 4 Performed By: #### L500.2500 #### [facility] [address] [place], [address] CBC W/DIFF, AUTOMATED Collected: 2017 Status: F Source: [place] 6:30 AM [facility] REPOSITORY Order Comment: 170 TYPE CODE TESTS [...] Lymph 1.36 Performed By: #### L100.0100 #### [facility] [address] [place], [place], [address] BASIC METABOLIC Collected: 2017 Status: F Source: [place]AS[place] PROFILE (BMP) 6:30 AM [facility] REPOSITORY Order Comment: 170 TYPE CODE TESTS [...] GAP 5 Performed By: #### L500.2500 #### [facility] [address] [place], [place] [address]. [place], [address] CBC W/DIFF, AUTOMATED Collected: 11/08/2017 Status: F Source: [place] 6:15 AM [facility] REPOSITORY Order Comment: ROOM 170 TYPE CODE [...] Lymph 1.51 Performed By: #### L100.0100 #### [facility] [address] [place], [address] BASIC METABOLIC Collected: 11/08/2017 Status: F Source: JASPER PROFILE ([facility]) 6:15 AM [facility] REPOSITORY Order Comment: ROOM 170 TYPE CODE [...] GAP 3 Performed By: #### L500.2500 #### [facility] [address] [facility] [place], [address] CBC W/DIFF, AUTOMATED Collected: 11/01/2017 Status: F Source: [place] 7:10 AM [facility] REPOSITORY Order Comment: RM:170 TYPE CODE TESTS [...] Lymph 1.27 Performed By: #### L100.0100 #### [facility] [address] [place], [place], [address] BASIC METABOLIC Collected: 11/01/2017 Status: F Source: JASPER PROFILE ([facility]) 7:10 AM [facility] REPOSITORY Order Comment: RM:170 TYPE CODE TESTS [...] 5 GAP Performed By: #### L500.2500 #### [facility] [address] [place], [place], [address] BASIC METABOLIC Collected: 10/24/2017 Status: F Source: [place] PROFILE ([facility]) 5:17 AM [facility] REPOSITORY Order Comment: ROOM 170 TYPE CODE [...] GAP 9 Performed By: #### L500.2500 #### [facility] [place], [address] CBC W/DIFF, AUTOMATED Collected: 10/24/2017 Status: F Source: [place] 5:17 AM [facility] REPOSITORY Order Comment: ROOM 170 TYPE CODE [...] Lymph 1.59 Performed By: #### L100.0100 #### [facility] [address] [place], [address] BASIC METABOLIC Collected: 10/19/2017 Status: F Source: [place] PROFILE (BMP) 5:40 AM [facility] REPOSITORY TYPE CODE TESTS RESULT OUT OF [...] GAP 7 Performed By: #### L500.2500 #### [facility] [place], [address] CBC W/DIFF, AUTOMATED Collected: 10/19/2017 Status: F Source: [place] 5:40 AM [facility] REPOSITORY TYPE CODE TESTS RESULT OUT OF [...] Lymph 1.38 Performed By: #### L100.0100 #### [facility] [address] [place], [address] URINALYSIS, COMPLETE Collected: 10/13/2017 Status: F Source: [place] 12:00 AM [facility] REPOSITORY Order Comment: How was Urine Obtained? [...] URINE SEEN Performed By: #### L400.0001 #### [facility] [address] [place], [address] Observed: 10/13/2017 Status: F Source: [place] CULTURE, URINE 12:00 AM [facility] REPOSITORY Urine Culture There are no CLSI standards for interpretation of this Drug/Organism combination. ORGANISM 1: Enterococcus raffinosus Tracy Count 25,000-50,000 Performed By: #### M100.0650 #### [facility] [address] [place], [address] CBC W/DIFF, AUTOMATED Collected: 10/10/2017 Status: F Source: [place] 5:35 AM [facility] REPOSITORY Order Comment: ROOM 170 TYPE CODE [...] Lymph 1.79 Performed By: #### L100.0100 #### [facility] [address] [place], [place], [address] BASIC METABOLIC Collected: 10/10/2017 Status: F Source: [place] PROFILE (BMP) 5:35 AM [facility] REPOSITORY Order Comment: ROOM 170 TYPE CODE [...] 9 Performed By: #### L500.2500, L501.9520 #### [facility] [address] [facility] [place], [place], [address] THYROID STIM HORMONE Collected: 10/10/2017 Status: F Source: [place] (TSH) 5:35 AM [facility] REPOSITORY Order Comment: ROOM 170 TYPE CODE TESTS RESULT OUT OF RANGE REFERENCE UNITS LAB L501.9520 0.358-3.74 uIU/mL High TSH 7.24 Performed By: #### L500.2500, L501.9520 #### [facility] [address] [facility] [place], [address] VITAMIN D,25 HYDROXY Collected: 10/10/2017 Status: F Source: [place] 5:35 AM [facility] REPOSITORY Order Comment: ROOM 170 TYPE CODE TESTS RESULT OUT OF REFERENCE UNITS RANGE LAB L506.1000 29.95-100.01 ng/mL Low Vitamin D 20.9 25-OH Result Comment: Vitamin D 25(OH) Status Range Deficiency <20 ng/mL (50nmol/L) Insuffciency 20 - 30 ng/mL (50 - 75 nmol/L) Sufficiency 30 - 100 ng/mL (75 - 250 nmol/L) Toxicity >100 ng/mL (>250 nmol/L) Performed By: #### L506.1000 #### [facility] [place], [address] CBC W/DIFF, AUTOMATED Collected: 10/07/2017 Status: F Source: JOSE 4:29 PM [facility] REPOSITORY TYPE CODE TESTS RESULT OUT OF [...] Lymph 0.65 Performed By: #### L100.0100 #### [facility] [address] [place], [address] DISCHARGE SUMMARY Observed: 10/06/2017 Status: F Source: JASPER 4:34 PM [facility] REPOSITORY [facility] Medical Records Department [address] [place] [address] Discharge Summary 10/06/17 1543 MR#: [id number] Acct: [id number] Name: CHA CALIX Rep #: [id number] : 1945 71 From: Steven NIX PCP: MARILEE Mccain Status: DIS IN Y [id number] <Steven Holder - Last Filed: 10/06/17 15:44> [...] Course and Treatment Consultations 10/04/17 17:33 Consult: Onc/Wound/head bone grinder Routine Comment: Operations: None Procedures: None Summary of Care Provided: Physical exam on day of discharge: General: Resting comfortably NAD Psych: A/Ox3 normal affect HEENT: PEARRLA AT ME Neck: Supple NT CV: RRR no m/t/r/g/h [...] and seen by PT and OT, and retirement was recommended. As far as her hypoglycemia, she was placed on a sliding scale insulin, and Lantus was discontinued. She had fair control of her blood sugar while here. She was discharged to retirement in stable condition. For discharge I recommend [...] to continue wound care daily at the senior care. Wound cultures show rare GP and GNR. She will need to follow-up with her PCP in 2 weeks. She does have significant chronic anemia and chronic kidney disease, and will need periodic monitoring of her CBC and BMP. This patient was seen by Steven Holder PA-C under the supervision of Doctor Merry. 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 Code Visit Inpatient E AND M: 90123 Disch Hosp 10/06/17 1556 <Electronically signed by Steven NIX> Date Steven NIX 10/06/17 9674<Electronically signed by Santos Sousa MD> Cosigner Signature (if applicable): Date Santos Sousa MD CC: SURGERY TECH-C Anyi Zamora; DINAH Holder; Santos Sousa MD Signed TRANSFER TO EXTENDED Observed: 10/06/2017 Status: F Source: JOSE CARE 1:06 PM [facility] REPOSITORY [facility] Medical Records Department [address] [place] [address] Transfer to Extended Care MR#: [id number] Acct: [id number] Name: CHA CALIX Rep #: [id number] : 1945 71 From: Steven NIX PCP: MARILEE Mccain Status: ADM IN CHA CALIX (Patient) (Health Ins. Claim No.) (Day of Discharge to Facility) Certification of patient admission REQUIRED AT TIME OF ADMISSION. I CERTIFY THAT POST-HOSPITAL ECF SERVICES ARE REQUIRED TO BE GIVEN ON AN IN-PATIENT BASIS BECAUSE OF THE ABOVE NAMED PATIENT'S NEED FOR HALFWAY CARE ON A CONTINUING BASIS FOR THE CONDITION(S) FOR WHICH HE/SHE WAS RECEIVING IN-PATIENT HOSPITAL SERVICES PRIOR TO HIS/HER TRANSFER TO THE ECF. 10/06/17 1158 <Electronically signed by Steven NIX> [...] Up Care Primary Care Physician: Anyi Zamora, [facility] [Primary Care Provider] - Please follow up with your Primary Care Physician in: 2 weeks 10/06/17 1158 <Electronically signed by Steven NIX> Date Steven NIX CC: MARILEE Zamora Signed BEDSIDE GLUCOSE Collected: 10/06/2017 Status: F Source: JOSE 11:50 AM [facility] REPOSITORY TYPE CODE TESTS RESULT OUT OF REFERENCE UNITS RANGE LAB L501.080 70-110 mg/dL High BEDSIDE GLU 114 Result Comment: MANAGEMENT OF PATIENT CARE PER NURSING PROTOCOL Performed By: #### L501.080 #### [facility] Point of Care [address] [place] [address] CBC-COMPLETE BLOOD CNT Collected: 10/06/2017 Status: F Source: JOSE NO DIFF 7:10 AM [facility] REPOSITORY TYPE CODE TESTS RESULT OUT OF [...] MPV 10.0 Performed By: #### L100.0500 #### [facility] [address] [place], [address] BASIC METABOLIC Collected: 10/06/2017 Status: F Source: JOSE PROFILE (BMP) 7:10 AM [facility] REPOSITORY TYPE CODE TESTS RESULT OUT OF [...] GAP 11 Performed By: #### L500.2500 #### [facility] [address] [place], [address] BEDSIDE GLUCOSE Collected: 10/06/2017 Status: F Source: JOSE 6:47 AM [facility] REPOSITORY TYPE CODE TESTS RESULT OUT OF REFERENCE UNITS RANGE LAB L501.080 70-110 mg/dL High BEDSIDE GLU 116 Result Comment: MANAGEMENT OF PATIENT CARE PER NURSING PROTOCOL Performed By: #### L501.080 #### [facility] Point of Care [address] [facility] [place] [address] MRSA WOUND DNA BY Collected: 10/06/2017 Status: F Source: JOSE PCR 3:00 AM [facility] REPOSITORY Order Comment: Comments: sacrum Specimen Source? sacral wound TYPE CODE TESTS RESULT OUT OF RANGE REFERENCE UNITS LAB L8200.1100 Negative Normal MRSA Negative RESULT LAB L8200.1150 Negative Normal SA RESULT NEGATIVE Performed By: #### L8200.1075 #### [facility] [address] [facility] [place], [address] BEDSIDE GLUCOSE Collected: 10/05/2017 Status: F Source: JOSE 9:48 PM [facility] REPOSITORY TYPE CODE TESTS RESULT OUT OF REFERENCE UNITS RANGE LAB L501.080 70-110 mg/dL High BEDSIDE GLU 118 Result Comment: MANAGEMENT OF PATIENT CARE PER NURSING PROTOCOL Performed By: #### L501.080 #### [facility] Point of Care [address] [place] [address] BEDSIDE GLUCOSE Collected: 10/05/2017 Status: F Source: JOSE 4:37 PM [facility] REPOSITORY TYPE CODE TESTS RESULT OUT OF REFERENCE UNITS RANGE LAB L501.080 70-110 mg/dL High BEDSIDE GLU 113 Result Comment: MANAGEMENT OF PATIENT CARE PER NURSING PROTOCOL Performed By: #### L501.080 #### [facility] [place] [address] Observed: 10/05/2017 Status: F Source: JASPER CULTURE, DEEP WOUND 11:55 AM [facility] REPOSITORY Gram Stain Gram Stain Rare Gram negative rods Rare Gram positive cocci 3+ Red Blood Cells No White Blood Cells Wound Culture #2 Organism unable to sustain growth for sensitivity testing. RESULTS CALLED TO [facility] [phone] 10/10/17 1449 Kim Wolf. Copy of report sent to Infection Control Printer MS#[id number] 10/10/17 8925 LUCIANONNYVONNE. ORGANISM 1: Proteus mirabilis Amount Growth Rare [...] >=320 R (NF) indicates non-formulary drug at [facility]. Approval by Infectious Disease Specialist required before non-formulary drugs may be ordered and/or dispensed. Vancomycin Resist. E. faecilis: REACTION Ampicillin $ 8 R Benzylpenicillin NF 1 R Gentamicin SYN-S S Linezolid $$$$ 2 S Tigecycline $$$$ 0.25 S Streptomycin $ SYN-S S Vancomycin $ >=32 R (NF) indicates non-formulary drug at [facility]. Approval by Infectious Disease Specialist required [...] 1 S (NF) indicates non-formulary drug at [facility]. Approval by Infectious Disease Specialist required before non-formulary drugs may be ordered and/or dispensed. * CLSI guidelines does not recommend testing of cephalosporins. This interpretation is deduced from Beta-lactam/penicillin results. Cult, Anaerobic No anaerobic bacteria isolated. Performed By: #### M100.1500 #### [facility] [address] [place], [address] BEDSIDE GLUCOSE Collected: 10/05/2017 Status: F Source: JASPER 11:40 AM [facility] REPOSITORY TYPE CODE TESTS RESULT OUT OF REFERENCE UNITS RANGE LAB L501.080 70-110 mg/dL High BEDSIDE GLU 153 Result Comment: MANAGEMENT OF PATIENT CARE PER NURSING PROTOCOL Performed By: #### L501.080 #### [facility] Point of Care [address] [place] [address] BEDSIDE GLUCOSE Collected: 10/05/2017 Status: F Source: JASPER 6:57 AM [facility] REPOSITORY TYPE CODE TESTS RESULT OUT OF RANGE REFERENCE UNITS LAB L501.080 70-110 mg/dL Normal BEDSIDE GLU 109 Result Comment: MANAGEMENT OF PATIENT CARE PER NURSING PROTOCOL Performed By: #### L501.080 #### [facility] Point of Care [address] [place] [address] CBC W/DIFF, AUTOMATED Collected: 10/05/2017 Status: F Source: JASPER 5:08 AM [facility] REPOSITORY TYPE CODE TESTS RESULT OUT OF [...] Lymph 0.63 Performed By: #### L100.0100 #### [facility] [address] [place], [address] COMPREHENSIVE METABOLIC Collected: 10/05/2017 Status: F Source: [facility] 5:08 AM [facility] REPOSITORY TYPE CODE TESTS RESULT OUT OF RANGE REFERENCE UNITS LAB L501.0100 74-106 mg/dL Low alert GLU 41 Result Comment: Critical Result(s) Called at: 06:24:41 10/05/2017 by: All Villanueva RN (U). Glucose result less than 50 mg/dL suggests [...] GAP 11 Performed By: #### L500.4050 #### [facility] [address] [place], [address] BEDSIDE GLUCOSE Collected: 10/04/2017 Status: F Source: JOSE 10:09 PM [facility] REPOSITORY TYPE CODE TESTS RESULT OUT OF REFERENCE UNITS RANGE LAB L501.080 70-110 mg/dL High BEDSIDE GLU 142 Result Comment: MANAGEMENT OF PATIENT CARE PER NURSING PROTOCOL Performed By: #### L501.080 #### [facility] Point of Care [address] [place] [address] HISTORY AND PHYSICAL Observed: 10/04/2017 Status: F Source: JASPER EXAM 6:19 PM [facility] REPOSITORY [facility] Medical Records Department [address] [place] [address] History and Physical 10/04/17 1715 MR#: [id number] Acct: [id number] Name: CHA CALIX Rep #: [id number] : 1945 71 From: Harvey More DO PCP: MARILEE Mccain Status: ADM IN Location: [place] [id number] ADDENDUM by Harvey More DO on 10/04/17 at 1819 Code Visit Patient with a noted cephalexin allergy though has received Rocephin in the past. We will change antibiotics from meropenem. 10/04/17 181 <Electronically signed by Harvey More DO> Date Harvey More DO cc: SURGERY TECH-C Anyi Zamora; Harvey More DO * Signed [...] hospice. Code Visit Inpatient E AND M: 64037 Init Hosp L3 Procedures: 04791 Advncd Care Plan 30 Min 10/04/17 1725 <Electronically signed by Harvey More DO> Date Harvey More DO [facility] Signature: Date (if applicable) CC: SURGERY TECH-C Anyi Zamora; Harvey More DO Signed BEDSIDE GLUCOSE Collected: 10/04/2017 Status: F Source: JOSE 4:55 PM [facility] REPOSITORY TYPE CODE TESTS RESULT OUT OF REFERENCE UNITS RANGE LAB L501.080 70-110 mg/dL High BEDSIDE GLU 147 Result Comment: MANAGEMENT OF PATIENT CARE PER NURSING PROTOCOL Performed By: #### L501.080 #### [facility] Point of Care [address] [place], [place] [address] BEDSIDE GLUCOSE Collected: 10/04/2017 Status: F Source: JOSE 4:00 PM [facility] REPOSITORY TYPE CODE TESTS RESULT OUT OF REFERENCE UNITS RANGE LAB L501.080 70-110 mg/dL High BEDSIDE GLU 129 Result Comment: MANAGEMENT OF PATIENT CARE PER NURSING PROTOCOL Performed By: #### L501.080 #### [facility] Point of Care [address] [place] [address] EMERGENCY DEPARTMENT Observed: 10/04/2017 Status: F Source: JASPER SUMMARY 3:53 PM [facility] REPOSITORY [facility] Medical Records Department [address] [place] [address] Emergency Department Summary 10/04/17 1545 MR#: [id number] Acct: [id number] Name: CHA CALIX Rep #: [id number] : 1945 71 From: Mikey Warner MD PCP: MARILEE Mccain Status: REG ER - ER Visit Summary [...] renal disease This note was generated with [employer] software. It may contain incorrect words, spelling, and punctuation that were not noted in review of the chart prior to signing ED Disposition - Plan for ED Patient: Chief Complaint: Wound Referrals: Anyi Zamora, LAKHWINDER-C [Primary Care Provider] - What to do if you have Problems For any increased pain, shortness of breath, bleeding, nausea or vomiting, chest pain, or any unexpected problems, contact your Primary Care Provider. Call [facility] ([phone]) or report to the closest Emergency Room. Call 911 if necessary. 10/04/17 1553 <Electronically signed by Mikey Warner MD> Date Mikey Warner MD Cosigner Signature (If Indicated): Date CC: SURGERY TECH-C Anyi Zamora BEDSIDE GLUCOSE Collected: 10/04/2017 Status: F Source: JOSE 3:06 PM [facility] REPOSITORY TYPE CODE TESTS RESULT OUT OF REFERENCE UNITS RANGE LAB L501.080 70-110 mg/dL Low BEDSIDE GLU 57 Result Comment: MANAGEMENT OF PATIENT CARE PER NURSING PROTOCOL Performed By: #### L501.080 #### [facility] [place] [address] CBC W/DIFF, AUTOMATED Collected: 10/04/2017 Status: F Source: JOSE 3:05 PM [facility] REPOSITORY Order Comment: REDRAW. PREVIOUS SPECIMEN REJECTED DUE TO QNS. 10/04/17 1406 Alejandrina Martin. TYPE CODE TESTS RESULT OUT OF [...] Lymph 0.87 Performed By: #### L100.0100 #### [facility] [address] [place], [place], [address] BEDSIDE GLUCOSE Collected: 10/04/2017 Status: F Source: JASPER 2:31 PM [facility] REPOSITORY TYPE CODE TESTS RESULT OUT OF REFERENCE UNITS RANGE LAB L501.080 70-110 mg/dL Low alert BEDSIDE GLU 40 Result Comment: Orders Followed MANAGEMENT OF PATIENT CARE PER NURSING PROTOCOL Performed By: #### L501.080 #### [facility] Point of Care [address] [place] [address] COMPREHENSIVE METABOLIC Collected: 10/04/2017 Status: F [facility] REPOSITORY Order Comment: REDRAW. PREVIOUS SPECIMEN REJECTED [...] GAP 7 Performed By: #### L500.4050 #### [facility] [address] [place], [place], [address] URINALYSIS, COMPLETE Collected: 10/04/2017 Status: F Source: JASPER 2:30 PM [facility] REPOSITORY Order Comment: Has pt arrived? Y [...] URINE SEEN Performed By: #### L400.0001 #### [facility] [address] [place], [address] EMERGENCY DEPARTMENT Observed: 09/28/2017 Status: F Source: JASPER SUMMARY 11:36 PM [facility] REPOSITORY [facility] Medical Records Department [address] [place] [address] Emergency Department Summary 09/28/17 1608 MR#: [id number] Acct: [id number] Name: CHA CALIX Rep #: [id number] : 1945 71 From: Harvey Medrano DO [...] decubitus ulcer This note was generated with [employer] dictation software. It may contain incorrect words, [...] your Primary Care Provider. Call [facility] ([phone]) or report to the closest Emergency Room. Call 911 if necessary. 09/28/17 2336 <Electronically signed by Harvey Medrano DO> Date Harvey Medrano DO Cosigner Signature (If Indicated): Date CC: No Primary Care Physician Observed: 09/28/2017 Status: F Source: JOSE CULTURE, URINE 4:08 PM [facility] REPOSITORY Urine Culture ORGANISM 1: Citrobacter youngae Tracy Count >100,000 ORGANISM 2: Klebsiella pneumoniae sp pneum Tracy Count >100,000 Citrobacter youngae: REACTION Amoxacillin/Clavulanic Acid $ 16 R Cefazolin $ >=64 R Cefepime $ <=1 S Ceftriaxone $ 8 S Ciprofloxacin $ 1 I Ertapenim $$$ <=0.5 S Gentamicin $ 8 I Imipenem *NF <=0.25 S Levofloxacin $ 4 I Nitrofurantoin $ <=16 S Tobramycin $ 8 I Trimethoprim/Sulfametho $ >=320 R (NF) indicates non-formulary drug at [facility]. Approval by Infectious Disease Specialist required [...] >=320 R (NF) indicates non-formulary drug at [facility]. Approval by Infectious Disease Specialist required before non-formulary drugs may be ordered and/or dispensed. Performed By: #### M100.0650 #### [facility] [address] [place], [address] URINALYSIS, COMPLETE Collected: 09/28/2017 Status: F Source: JASPER 4:05 PM [facility] REPOSITORY Order Comment: How was Urine Obtained? [...] Normal AMORPHOUS Performed By: #### L400.0001 #### [facility] [address] [place], [address] CBC W/DIFF, AUTOMATED Collected: 09/28/2017 Status: F Source: JASPER 3:55 PM [facility] REPOSITORY TYPE CODE TESTS RESULT OUT OF [...] Lymph 0.91 Performed By: #### L100.0100 #### [facility] [address] [place], [address] COMPREHENSIVE METABOLIC Collected: 09/28/2017 Status: F Source: JOSE [facility] 3:55 PM [facility] REPOSITORY TYPE CODE TESTS RESULT OUT OF [...] GAP 7 Performed By: #### L500.4050 #### [facility] [address] [facility] [place], [place], [address] URINALYSIS, COMPLETE Collected: 07/13/2017 Status: F Source: JASPER 4:15 PM [facility] REPOSITORY Order Comment: How was Urine Obtained? [...] URINE SEEN Performed By: #### L400.0001 #### [facility] [address] [facility] [place], [place], [address] ALLERGIES ALLERGIES DATE TYPE / CODE NAME / CODE REACTION SEVERITY SOURCE 10/04/2017 Drug Penicillins/ Rash Unknown [facility] Allergy/4160 [id number]([facility] [address]348(SNOMED XNORM) Repository CT) 10/04/2017 Drug cephalexin/F Rash Unknown [facility] Allergy/4160 [id number]([facility] [address]19(SNOMED NORM) Repository CT) ENCOUNTERS ENCOUNTERS ADMIT/DISCHARGE ACCOUNT ADMITTING ENCOUNTER LOCATION SOURCE NUMBER CLASS 02/28/2018 [id number] Ambulatory [place] [facility] ing:OLS.AV[facility] Repository 02/09/2018 [id number] Ambulatory [place] 8 [facility] ing:[facility] Repository 01/31/2018 [id number] [facility] [place] [facility] ing[facility] Repository 01/24/2018 [id number] Ambulatory [place] [facility] 4 [facility] ing:OLS.[facility] Repository 01/17/2018 [id number] Ambulatory [place] 5 [facility] ing:OLS.AVEC Repository 01/10/2018 [id number] Ambulatory [place] 3 [facility] ing:OLS.AV[facility] Repository 01/03/2018 [id number] Ambulatory [place] 8 [facility] ing:OLS.AV[facility] Repository 12/27/2017 [id number] Ambulatory [place] 5 [facility] ing:OLS.AV[facility] Repository 12/20/2017 [id number] Ambulatory [place] 4 [facility] ing:OLS.AV[facility] Repository 12/14/2017 [id number] Ambulatory [place] 6 [facility] ing:OLS.AVEC Repository 12/12/2017 [id number] Ambulatory [place] 9 [facility] ing:OLS.AVEC Repository 12/06/2017 [id number] Ambulatory [place] 3 [facility] ing:OLS.AVEC Repository 11/29/2017 [id number] Ambulatory [place] 0 [facility] ing:OLS.AVEC Repository 11/24/2017 [id number] Ambulatory [place] [facility] 9 [facility] ing:OLS.AVEC Repository 11/22/2017 [id number] Ambulatory [place] 5 [facility] ing:OLS.AVEC Repository 2017 [id number] Ambulatory [place] 0 [facility] ing:OLS.AVED Repository 11/08/2017 [id number] Ambulatory [place] 0 [facility] Hospital ing:OLS.AVEB Repository 11/01/2017 [id number] Ambulatory [place] 7 [facility] Hospital ing:OLS.AVEB Repository 10/24/2017 [id number] Ambulatory [place] 2 [facility] Hospital ing:OLS.AVEC Repository 10/19/2017 [id number] Ambulatory [place] 7 [facility] Hospital ing:OLS.AVEB Repository 10/13/2017 [id number] Ambulatory [place] 7 [facility] Hospital ing:OLS.AVEB Repository 10/10/2017 [id number] Ambulatory [place] 1 [facility] Hospital ing:OLS.AVED Repository 10/07/2017 [id number] Ambulatory [place] 8 [facility] Hospital ing:OLS.AVEB Repository 10/04/2017 [id number] Harvey More Ambulatory [facility]Building:[facility] [place] [facility] [place] Repository 10/04/2017 [id number] Harvey More Ambulatory BMSBuilding:B [place] 4 [facility] Repository 10/04/2017 [id number] Harvey More Ambulatory BMSBuilding:B [place] 6 [place] Repository 10/04/2017/ [id number] Harvey More Inpatient [place] 8 7 Encounter [facility] ing:PCURoom: Repository [id number]: 1 09/28/2017/ [id number] Emergency [place] 8 3 [facility] Hospital ing:ED Repository 07/13/2017 [id number] Ambulatory [place] 0 [facility] Repository PAYERS PAYERS ENCOUNTER GUARANTOR PAYER SUBSCRIBER SOURCE 02/28/2018 CHA Tejeda Primary NOT GIVENUNK [place] [id number] E. Insurance:SELF PAY [facility] RDAVENUE Number: Effective Repository OF Date:2018-02-28 pio PELAYO 88961Ucc: () 02/09/2018 CHA A Primary CHA A Jose [id number] E. Insurance:[facility] BUTLERDOB[facility] *IN [facility] [id number] Number: Repository [place] [id number] [place], Date:5060-35-42ZS [facility] [address]Bjt: [address] [place] [phone]: [phone] 02/09/2018 Secondary NOT GIVENUNK [place] Insurance:SELF PAY [facility] Number: Effective Repository Date:2018-02-09 01/31/2018 CHA A Primary CHA A [place] [id number] E. Insurance:[facility] BUTLERDOB: [facility] *IN [facility] [id number] Medical Center Number: Repository OF [id number] [facility], Date:6071-14-92GG [facility] [address]Coa: [address] [place] [address] ) [phone]: [phone] 01/31/2018 Secondary NOT GIVENUNK [place] Insurance:SELF PAY [facility] Number: Effective Repository Date:2018-01-31 01/24/2018 CHA A Primary CHA A [place] [id number] E. Insurance:[facility] BUTLERDOB: [facility] *IN [facility] [id number] Medical Center Number: Repository OF [id number] [facility], Date:9254-89-07YE [facility] [address]Ekz: [address] [place] [phone]: [phone] 01/24/2018 Secondary NOT GIVENUNK [place] Insurance:SELF PAY [facility] Number: Effective Repository Date:2018-01-24 01/17/2018 CHA A Primary CHA A [place] [id number] E. Insurance:[facility] BUTLERDOB: [facility] *IN [facility] [id number] Medical Center Number: Repository OF [id number] [place], Date:8877-02-10VL [facility] [address]Qxt: [address] [place] [phone]: [phone] 01/17/2018 Secondary NOT GIVENUNK [place] Insurance:SELF PAY [facility] Number: Effective Repository Date:2018-01-17 01/10/2018 CHA A Primary CHA A [place] [id number] E. Insurance:[facility] BUTLERDOB: [facility] *IN [facility] [id number] Medical Center Number: Repository OF [id number] [place], Date:2587-55-37PR [facility] 96228Stk: [address] [place] [phone]: [phone]) (HP) [phone] 01/10/2018 Secondary NOT GIVENUNK Jose Insurance:SELF PAY [facility] Number: Effective Repository Date:2018-01-10 01/03/2018 CHA A Primary CHA A [place] [id number] E. Insurance:[facility] BUTLERDOB: Community [place] *IN [facility] [id number] Medical Center Number: Repository [place] [id number] [place], Date:1297-67-44NT [facility] 83743Ouy: [address] [place] [address] ) [phone]: [phone]) (HP) [phone] 01/03/2018 Secondary NOT GIVENUNK [place] Insurance:SELF PAY [facility] Number: Effective Repository Date:2018-01-03 12/27/2017 CHA A Primary CHA A Jose [id number] E. Insurance:[facility] BUTLERDOB: Community [place] *IN [facility] [id number] Medical Center Number: Repository [place] [id number] [place], Date:7756-76-57IL [facility] [address]157Bhu: [address] [place] [phone]: [phone]) () [phone] 12/27/2017 Secondary NOT GIVENUNK [place] Insurance:SELF PAY [facility] Number: Effective Repository Date:2017-12-27 12/20/2017 CHA A Primary NOT GIVENUNK Jose [id number] E. Insurance:SELF PAY [facility] Number: Effective Repository OF Date:2017-12-20 [facility] [place] [address]Nfl: () 12/14/2017 CHA A Primary CHA A [place] [id number] E. Insurance:[facility] BUTLERDOB: [facility] *IN [facility] [id number] Medical Center Number: Repository [place] [id number] [place], Date:3988-06-98WQ [facility] 52779Foi: [address] [place] [phone]: [phone] () [phone] 12/14/2017 Secondary NOT GIVENUNK Jose Insurance:SELF PAY [facility] Number: Effective Repository Date:2017-12-14 12/12/2017 CHA A Primary CHA A [place] [id number] E. [facility] BUTLERDOB: [facility] *IN [facility] [id number] Medical Center Number: Repository OF [id number] [place], Date:2601-32-05IM [facility] 62481Rhe: [address] [place] [phone]: [phone]) () [phone] 12/12/2017 Secondary NOT GIVENUNK Jose Insurance:SELF PAY [facility] Number: Effective Repository Date:2017-12-12 12/06/2017 CHA A Primary CHA A Jose [id number] E. Insurance:[facility] BUTLERDOB: [facility] *IN [facility] 1981-06-37LTPInterfaith Medical Center Number: Repository [place] [id number] [place], Date:1544-61-44VD [facility] 25349Znd: [address] [place] [phone]: [phone]) (HP) [phone] 12/06/2017 Secondary NOT GIVENUNK [place] Insurance:SELF PAY [facility] Number: Effective Repository Date:2017-12-06 11/29/2017 CHA A Primary CHA A Jose [id number] E. Insurance:[facility] BUTLERDOB: Community [place] *IN [facility] [id number] Medical Center Number: Repository OF [id number] [place], Date:6272-41-33ZH [facility] 08610Tdr: [address] [place] [phone]: [phone]) (HP) [phone] 11/29/2017 Secondary NOT GIVENUNK Jose Insurance:SELF PAY [facility] Number: Effective Repository Date:2017-11-29 11/24/2017 CHA A Primary CHA A Jose [id number] E. Insurance:[facility] BUTLERDOB: Community [place] *IN [facility] [id number] Medical Center Number: Repository OF [id number] [place]AREOSTERWMERLESTER, Date:4946-76-70UU [facility] 304[address]Wnw: [address] [place] [phone]: [phone]) (HP) [phone] 11/24/2017 Secondary NOT GIVENUNK Jose Insurance:SELF PAY [facility] Number: Effective Repository Date:2017-11-24 11/22/2017 CHA A Primary CHA A [place] [id number] E. Insurance:[facility] BUTLERDOB: Community [place] *IN [facility] [id number] Medical Center Number: Repository OF [id number] MAREOSTERRODOSTER, Date:2490-45-96QV [facility] 42387Duy: [address] [place] [phone]: [phone]) (HP) [phone] 11/22/2017 Secondary NOT GIVENUNK [place] Insurance:SELF PAY [facility] Number: Effective Repository Date:2017-11-22 2017 CHA A Primary CHA A [place] [id number] E. Insurance:[facility] BUTLERDOB: [facility] [id number] Medical Center Number: Repository OF [id number] [place], Date:6664-46-46FP [facility] 34336Ghb: [address] [place] [phone]: [phone]) (HP) [phone] Secondary NOT GIVENUNK Jose Insurance:SELF PAY [facility] Number: Effective Repository Date:2017 11/08/2017 CHA A Primary CHA A [place] [id number] E. Insurance:[facility] BUTLERDOB: [facility] JUNIOR *IN [facility] [id number] Medical Center Number: Repository OF [id number] WOOSTERREDWOOD LLCST, Date:2705-60-80ZU [facility] 20895Icf: [address] [place] [address] ) [phone]: [phone]) () [phone] 11/08/2017 Secondary NOT GIVENUNK [place] Insurance:SELF PAY [facility] Number: Effective Repository Date:2017-11-08 11/01/2017 CHA A Primary CHA A [place] [id number] E. Insurance:[facility] BUTLERDOB: [place] *IN [facility] [id number] Medical Center Number: Repository OF [id number] [place], Date:9386-86-70WD [facility] 73538Nvz: [address] [place] [address] ) [phone]: [phone]) (HP) [phone] 11/01/2017 Secondary NOT GIVENUNK Jose Insurance:SELF PAY [facility] Number: Effective Repository Date:2017-11-01 10/24/2017 CHA A Primary CHA A Jose [id number] E. Insurance:[facility] BUTLERDOB: [facility]IN [facility] [id number] Medical Center Number: Repository OF [id number] [place], Date:5526-03-65TZ [facility] 75665Cik: [address] [place] [phone]: [phone]) () [phone] 10/24/2017 Secondary NOT GIVENUNK Jose Insurance:SELF PAY [facility] Number: Effective Repository Date:2017-10-24 10/19/2017 CHA A Primary CHA A Jose [id number] E. Insurance:[facility] BUTLERDOB: [facility] *IN [facility] [id number] Medical Center Number: Repository OF [id number] [place], Date:0359-16-60JP [facility] 07349Mky: [address] [place] [address] ) [phone]: ([phone]) () [phone] 10/19/2017 Secondary NOT GIVENUNK Jose Insurance:SELF PAY [facility] Number: Effective Repository Date:2017-10-19 10/13/2017 CHA A Primary CAH A [place] [id number] E. Insurance:[facility] BUTLERDOB: [facility] JUNIOR *IN [facility] [id number] Medical Center Number: Repository OF [id number] [place], Date:4778-47-17QN [facility] 51340Ajm: [address] [place] [phone]: [phone]) () [phone] 10/13/2017 Secondary NOT GIVENUNK [place] Insurance:SELF PAY [facility] Number: Effective Repository Date:2017-10-13 10/10/2017 CHA A Primary CHA A Jose [id number] E. Insurance:[facility] BUTLERDOB: [facility]IN [facility] 1916-12-25NMHInterfaith Medical Center Number: Repository OF [id number] [place], Date:1771-57-97XX [facility] 31270Nef: [address] [place] [phone]: [phone]) (HR) [phone] 10/10/2017 Secondary NOT GIVENUNK [place] Insurance:SELF PAY [facility] Number: Effective Repository Date:2017-10-10 10/07/2017 CHA A Primary CHA A Jose [id number] MERLYN Insurance:[facility] [place]LERDOB: [place] [facility] [id number] Hospital [address]Tpi: (287) Number: Repository [phone] () [id number] Date:1785-62-61OU [address] [address]JS: 10/07/2017 Secondary NOT GIVENUNK [place] Insurance:SELF PAY [facility] Number: Effective Repository Date:2017-10-07 10/04/2017 CHA A Primary CHA A Jose [id number] MERLYN Insurance:[facility] BUTLERDOB: [place] [facility] [id number] Hospital [address]58[address]Yef: (330) Number: Repository [phone] () [id number] Date:2702-35-24MS [address] [address]KM: 10/04/2017 Secondary NOT GIVENUNK [place] Insurance:SELF PAY [facility] Number: Effective Repository Date:2017-10-04 10/04/2017 CHA A Primary CHA A [place] [id number] MERLYN Insurance:[facility] BUTLERDOB: [place] [facility] [id number] Hospital 10876Cns: (330) Number: Repository [phone] () [id number] Date:4822-07-54WE [address] [address]YO: 10/04/2017 Secondary NOT GIVENUNK Jose Insurance:SELF PAY [facility] Number: Effective Repository Date:2017-10-04 10/04/2017 CHA A Primary CHA A [place] [id number] MERLYN Insurance:[facility] BUTLERDOB: [place] [facility] [id number] Hospital [address]Tnf: (330) Number: Repository [phone] () [id number] Date:3336-44-45PV[address] [address]OK: 10/04/2017 Secondary NOT GIVENUNK Jose Insurance:SELF PAY [facility] Number: Effective Repository Date:2017-10-04 10/04/2017 CHA A Primary CHA A Jose [id number] MERLY[place] Insurance:[facility] BUTLERDOB: [place] [facility] [id number] Hospital [address]3088Rgz: (330) Number: Repository [phone] () [id number] Date:4927-11-46CU [address] [address]PP: 10/04/2017 Secondary NOT GIVENUNK Jose Insurance:SELF PAY [facility] Number: Effective Repository Date:2017-10-04 09/28/2017 CHA A Primary CHA A Jose [id number] MER[place] Insurance:[facility] BUTLERDOB: [place] [facility] [id number] Hospital [address]Fim: (330) Number: Repository [phone] () [id number] Date:7351-52-25RB[address] [address]OP: 09/28/2017 Secondary NOT GIVENUNK Jose Insurance:SELF PAY [facility] Number: Effective Repository Date:2017-09-28 07/13/2017 CHA A Primary CHA A [place] [id number] MERLYN Insurance:[facility] BUTLERDOB: [place] [facility] [id number] Hospital 199[address]Pfx: (330) Number: Repository [phone] () [id number] Date:2852-54-11JR [address] [place] [address]CS: 07/13/2017 Secondary NOT GIVENUNK [place] Insurance:SELF PAY [facility] Number: Effective Repository Date:2017-07-13
== END ==
LOC: OLS.AVEC 04:00
PROVIDERS: Visit Provider Family Medicine
DX: N28.9 Disorder of kidney and ureter, unspecified (principal)
CPT/HCPCS: 36415; 80048; 85025

== ENCOUNTER → 2018-01-31 05:00 | Outpatient (REF) | payer MEDICARE, SELFPAY ==
[2018-01-31 08:05] LABS: Absolute Neutrophil Count 4.2 X10^3/uL (2.0-7.7); Basophil# 0.02 X10^3/uL; Basophil% 0.3 % (0-1); Eosinophil# 0.32 X10^3/uL; Eosinophils% 4.9 % (0-5); Hematocrit 37.2 % (37-47); Hemoglobin 11.2 g/dl (12.0-15.0); Lymphocyte % 23.1 % (19-41); Mean Corp Hgb Conc 30.1 g/gl (32-36); Mean Corpuscular Hgb 28.6 pg (27.0-32.0); Mean Corpuscular Volume 95.1 fL (81-99); Mean Platelet Vol. 11.3 fl (6.2-12.0); Monocyte# 0.42 X10^3/uL; Monocyte% 6.5 % (0-10); Neutrophil # 4.22 X10^3/uL (2.7-7.7); Platelet Count 125 K/mm3 (150-450); RBC Distribution Width SD 46.3 fl (35.1-43.9); Red Blood Count 3.91 M/mm3 (4.2-5.4); White Blood Count 6.5 K/mm3 (4.4-11.0)
[2018-01-31 08:13] LABS: POSITIVE COUNT NO; POSITIVE DIFFERENTIAL NO; POSITIVE MORPHOLOGY NO
[2018-01-31 08:14] LABS: Anion Gap 5 (5-15); BUN 35 mg/dL (7-18); BUN/Creat Ratio 23.8 RATIO (10-20); Calcium,Total 8.3 mg/dL (8.5-10.1); Chloride 103 mmol/L (98-107); Creatinine, Serum 1.47 mg/dL (0.55-1.02); EST Glomerular Filtration Rate 37 mL/min (>60); Est Glom Filt Rate - Afr Amer 45 mL/min (>60); Glucose 101 mg/dL (74-106); Potassium 4.4 mmol/L (3.5-5.1); Sodium Level 141 mmol/L (136-145)
--- OUTSIDE RECORDS SUMMARY | 2018-05-04 11:00 | XMS RPT_ITS ---
:1945 Author Organization [place] Support Name Relationship Address Phone FifiGurpreet Unavailable [address] + [place] [address] R Unavailable Unavailable Unavailable Gurpreet Calix Unavailable [address] + [place] [address] R Unavailable Unavailable Unavailable Gurpreet Calix Unavailable [address] + [place] [address] R Unavailable Unavailable Unavailable Gurpreet Calix Unavailable [address] + [place] [address] R Unavailable Unavailable Unavailable Gurpreet Calix Unavailable [address] + [place] [address] R Unavailable Unavailable Unavailable Gurpreet Calix Unavailable [address] + [place] [address] R Unavailable Unavailable Unavailable Gurpreet Calix Unavailable [address] + [place] [address] R Unavailable Unavailable Unavailable Gurpreet Calix Unavailable [address] + [place] [address] R Unavailable Unavailable Unavailable Gurpreet Calix Unavailable [address] + [place] [address] R Unavailable Unavailable Unavailable Gurpreet Calix Unavailable [address] + [place] [address] R Unavailable Unavailable Unavailable Gurpreet Calix Unavailable [address] + [place] [address] R Unavailable Unavailable Unavailable Gurpreet Calix Unavailable [address] + [place] [address] R Unavailable Unavailable Unavailable Gurpreet Calix Unavailable [address] + [place] [address] R Unavailable Unavailable Unavailable Calix, Gurpreet Unavailable [address] + [place] [address] R Unavailable Unavailable Unavailable Calix, Gurpreet Unavailable [address] + [place] [address] R Unavailable Unavailable Unavailable Calix, Gurpreet Unavailable [address] + [place] [address] R Unavailable Unavailable Unavailable Calix, Gurpreet Unavailable [address] + [place] [address] R Unavailable Unavailable Unavailable Calix, Gurpreet Unavailable [address] + [place] [address] R Unavailable Unavailable Unavailable Calix, Gurpreet Unavailable [address] + [place] [address] R Unavailable Unavailable Unavailable Calix, Gurpreet Unavailable [address] + [place] [address] R Unavailable Unavailable Unavailable Calix, Gurpreet Unavailable [address] + [place] [address] R Unavailable Unavailable Unavailable Calix, Gurpreet Unavailable [address] + [place] [address] R Unavailable Unavailable Unavailable Calix, Gurpreet Unavailable [address] + [place] [address] R Unavailable Unavailable Unavailable CALIX, GURPREET Unavailable [address] + [place] [address] R Unavailable Unavailable Unavailable CALIX, GURPREET Unavailable [address] + [place] [address] R Unavailable Unavailable Unavailable Calix, Gurpreet Unavailable [address] + [place] [address] R Unavailable Unavailable Unavailable Calix, Gurpreet Unavailable [address] + [place] [address] R Unavailable Unavailable Unavailable CALIX, GURPREET Unavailable [address] + [place] [address] R Unavailable Unavailable Unavailable CALIX, GURPREET Unavailable [address] + [place] [address] R Unavailable Unavailable Unavailable Care Team Providers Name Role Phone Mike Shen Attending Unavailable Mike Shen Attending Unavailable Shen, Mike Attending Unavailable Shen, Mike Attending Unavailable Anyi Zamora F. TECHNICAL OPERATOR-C Attending Unavailable Primay Care Physicia, No Primary Care Unavailable Anyi Zamora F. TECHNICAL OPERATOR-C Referring Unavailable Primay Care Physicia, No Primary Care Unavailable Schwiger, Harvey Attending Unavailable Anyi Zamora F. TECHNICAL OPERATOR-C Primary Care Unavailable Jopperi, Harvey Admitting Unavailable Kotsonis, Santos F Attending Unavailable Jopperi, Harvey Admitting Unavailable Jopperi, Harvey Attending Unavailable Anyi Zamora F. TECHNICAL OPERATOR-C Primary Care Unavailable Jopperi, Harvey Consulting Unavailable Jopperi, Harvey Admitting Unavailable Anyi Zamora F. TECHNICAL OPERATOR-C Primary Care Unavailable Kotsonis, Santos F Consulting Unavailable Kotsonis, Santos F Attending Unavailable Jopperi, Harvey Admitting Unavailable Anyi Zamora F. TECHNICAL OPERATOR-C Primary Care Unavailable Kotsonis, Santos F Consulting Unavailable Kotsonis, Santos F Attending Unavailable Shen, Mike Attending Unavailable Shen, [...] STATUS SOURCE 02/24/2018 Unknown Z13.30 - Encounter Mike Shen for screening Community examination for Hospital mental health and Repository behavioral disorders, unspecified / Z13.30(ICD-10) 02/20/2018 Unknown E03.9 - ShenMike vora Active [place] Hypothyroidism, Community unspecified / Hospital E03.9(ICD-10) Repository 02/08/2018 Unknown N18.9 - Chronic ShenMike vora Active [place] kidney disease, Community unspecified / Hospital N18.9(ICD-10) Repository 02/03/2018 Unknown D64.9 - Anemia, Mike Shen Active [place] unspecified / Community D64.9(ICD-10) Hospital Repository 02/03/2018 Unknown E11.9 - Type 2 ShenMike vora Active [place] diabetes mellitus Community without Hospital complications / Repository E11.9(ICD-10) 01/13/2018 Unknown E78.5 - Mike Shen Active [place] Hyperlipidemia, Community unspecified / Hospital E78.5(ICD-10) Repository 01/04/2018 Unknown I10 - Essential Mike Shen Active [place] (primary) Community hypertension / Hospital I10(ICD-10) Repository [...] 02/28/2018 Status: F Source: [place] 6:58 AM [facility] HOSPITAL REPOSITORY Order Comment: 170 TYPE CODE [...] Lymph 1.49 Performed By: #### L100.0100 #### [facility] [address] [place], [address] BASIC METABOLIC Collected: 02/28/2018 Status: F Source: [place] PROFILE (BMP) 6:58 AM [facility] REPOSITORY Order Comment: 170 TYPE [...] GAP 5 Performed By: #### L500.2500 #### [facility] [address] [place], [address] HEMOGLOBIN A1C Collected: 02/09/2018 Status: F Source: [place] 6:15 AM [facility] REPOSITORY Order Comment: ROOM 170 TYPE CODE TESTS RESULT OUT OF RANGE REFERENCE UNITS LAB L501.9985 4.2-6.3 % Normal HGB A1C 5.6 Performed By: #### L501.9985 #### [facility] [address] [place], [address] COMPREHENSIVE METABOLIC Collected: 02/09/2018 Status: F Source: [facility] 6:15 AM [facility] REPOSITORY Order Comment: ROOM 170 [...] 6 Performed By: #### L500.4050, L501.9520 #### [facility] [address] [place], [place], [address] THYROID STIM HORMONE Collected: 02/09/2018 Status: F Source: [place] (TSH) 6:15 AM [facility] REPOSITORY Order Comment: ROOM 170 TYPE CODE TESTS RESULT OUT OF RANGE REFERENCE UNITS LAB L501.9520 0.358-3.74 uIU/mL Normal TSH 1.62 Performed By: #### L500.4050, L501.9520 #### [facility] [address] [place], [place], [address] CBC W/DIFF, AUTOMATED Collected: 01/31/2018 Status: F Source: [place] 5:45 AM [facility] REPOSITORY Order Comment: 170 TYPE [...] Lymph 1.50 Performed By: #### L100.0100 #### [facility] [address] [place], [address] BASIC METABOLIC Collected: 01/31/2018 Status: F Source: [place] PROFILE ([facility]) 5:45 AM [facility] REPOSITORY Order Comment: 170 TYPE [...] GAP 5 Performed By: #### L500.2500 #### [facility] [address] [place], [address] CBC W/DIFF, AUTOMATED Collected: 01/24/2018 Status: F Source: [place] 6:45 AM [facility] REPOSITORY Order Comment: 170 TYPE [...] Lymph 1.54 Performed By: #### L100.0100 #### [facility] [address] [facility] [address] [place], [place], [id number] BASIC METABOLIC Collected: 01/24/2018 Status: F Source: [place] PROFILE (BMP) 6:45 AM [facility] REPOSITORY Order Comment: 170 TYPE [...] GAP 7 Performed By: #### L500.2500 #### [facility] [address] [place], [address] CBC W/DIFF, AUTOMATED Collected: 01/17/2018 Status: F Source: [place] 7:50 AM [facility] REPOSITORY Order Comment: 170 TYPE [...] Lymph 1.43 Performed By: #### L100.0100 #### [facility] [address] [place], [place], [address] BASIC METABOLIC Collected: 01/17/2018 Status: F Source: [place] PROFILE (BMP) 7:50 AM [facility] REPOSITORY Order Comment: 170 TYPE [...] GAP 7 Performed By: #### L500.2500 #### [facility] [address] [place], [address] CBC W/DIFF, AUTOMATED Collected: 01/10/2018 Status: F Source: [place] 6:00 AM [facility] REPOSITORY Order Comment: 170 TYPE [...] Lymph 1.10 Performed By: #### L100.0100 #### [facility] [address] [place], [address] BASIC METABOLIC Collected: 01/10/2018 Status: F Source: [place] PROFILE (BMP) 6:00 AM [facility] REPOSITORY Order Comment: 170 TYPE [...] GAP 4 Performed By: #### L500.2500 #### [facility] [address] [place], [place], [address] BASIC METABOLIC Collected: 01/03/2018 Status: F Source: [place] PROFILE (BMP) 7:35 AM [facility] REPOSITORY TYPE CODE TESTS RESULT [...] GAP 8 Performed By: #### L500.2500 #### [facility] [address] [place], [place], [address] CBC W/DIFF, AUTOMATED Collected: 01/03/2018 Status: F Source: [place] 7:35 AM [facility] REPOSITORY TYPE CODE TESTS RESULT [...] Lymph 1.60 Performed By: #### L100.0100 #### [facility] [address] [place], [address] CBC W/DIFF, AUTOMATED Collected: 12/27/2017 Status: F Source: [place] 6:45 AM [facility] REPOSITORY Order Comment: 170 TYPE [...] Lymph 1.09 Performed By: #### L100.0100 #### [facility] [address] [place] [address]. [place], [place], [address] BASIC METABOLIC Collected: 12/27/2017 Status: F Source: [place] PROFILE (BMP) 6:45 AM [facility] REPOSITORY Order Comment: 170 TYPE [...] GAP 5 Performed By: #### L500.2500 #### [facility] [address] [place], [address] CBC W/DIFF, AUTOMATED Collected: 12/20/2017 Status: F Source: [place] 7:45 AM [facility] REPOSITORY Order Comment: ROOM 170 [...] Lymph 1.05 Performed By: #### L100.0100 #### [facility] [address] [place], [address] BASIC METABOLIC Collected: 12/20/2017 Status: F Source: [place] PROFILE ([facility]) 7:45 AM [facility] REPOSITORY Order Comment: ROOM 170 [...] GAP 4 Performed By: #### L500.2500 #### [facility] [address] [place], [address] POTASSIUM Collected: 12/14/2017 Status: F Source: [place] 6:40 AM [facility] REPOSITORY Order Comment: ROOM 170 TYPE CODE TESTS RESULT OUT OF RANGE REFERENCE UNITS LAB L501.5600 3.5-5.1 mmol/L Normal K 4.3 Performed By: #### L501.5600 #### [facility] [address] [place], [address] CBC W/DIFF, AUTOMATED Collected: 12/12/2017 Status: F Source: [place] 5:30 AM [facility] REPOSITORY TYPE CODE TESTS RESULT [...] Lymph 1.12 Performed By: #### L100.0100 #### [facility] [address] [place], [address] HEMOGLOBIN A1C Collected: 12/12/2017 Status: F Source: [place] 5:30 AM [facility] REPOSITORY Order Comment: ROOM 170 TYPE CODE TESTS RESULT OUT OF RANGE REFERENCE UNITS LAB L501.9985 4.2-6.3 % Normal HGB A1C 4.9 Performed By: #### L501.9985 #### [facility] [address] [place], [address] COMPREHENSIVE METABOLIC Collected: 12/12/2017 Status: F Source: [facility] 5:30 AM [facility] REPOSITORY Order Comment: ROOM 170 [...] 3 Performed By: #### L500.4050, L501.9520 #### [facility] [address] [place], [place], [address] THYROID STIM HORMONE Collected: 12/12/2017 Status: F Source: [place] (TSH) 5:30 AM [facility] REPOSITORY Order Comment: ROOM 170 TYPE CODE TESTS RESULT OUT OF RANGE REFERENCE UNITS LAB L501.9520 0.358-3.74 uIU/mL Normal TSH 3.16 Performed By: #### L500.4050, L501.9520 #### [facility] [address] [place], [address] CBC W/DIFF, AUTOMATED Collected: 12/06/2017 Status: F Source: [place] 6:25 AM [facility] REPOSITORY Order Comment: ROOM 170 [...] Lymph 1.38 Performed By: #### L100.0100 #### [facility] [address] [place], [address] BASIC METABOLIC Collected: 12/06/2017 Status: F Source: [place] PROFILE ([facility]) 6:25 AM [facility] REPOSITORY Order Comment: ROOM 170 [...] GAP 5 Performed By: #### L500.2500 #### [facility] [address] [place], [place], [address] CBC W/DIFF, AUTOMATED Collected: 11/29/2017 Status: F Source: [place] 5:40 AM [facility] REPOSITORY Order Comment: RM 170 [...] Lymph 1.48 Performed By: #### L100.0100 #### [facility] [address] [place], [place], [address] BASIC METABOLIC Collected: 11/29/2017 Status: F Source: [place] PROFILE (BMP) 5:00 AM [facility] REPOSITORY Order Comment: RM 170 [...] GAP 6 Performed By: #### L500.2500 #### [facility] [address] [place], [place], [address] URINALYSIS, COMPLETE Collected: 11/29/2017 Status: F Source: [place] 5:00 AM [facility] REPOSITORY Order Comment: How was [...] TRIPLE PHOS Performed By: #### L400.0001 #### [facility] [address] [place], [place], [address] Observed: 11/29/2017 Status: F Source: [place] CULTURE, URINE 5:00 AM [facility] REPOSITORY Urine Culture ORGANISM 1: Mixed Gram Pos AND Gram Neg Org Maben Count 50,000-80,000 MIX CULTURE Mixed contaminants. Submit a new specimen if indicated. Performed By: #### M100.0650 #### [facility] [address] [place], [address] URINALYSIS, COMPLETE Collected: 11/24/2017 Status: F Source: [place] 9:45 PM [facility] REPOSITORY Order Comment: Comments: CLAMPED [...] TRIPLE PHOS Performed By: #### L400.0001 #### [facility] [address] [place], [address] Observed: 11/24/2017 Status: F Source: [place] CULTURE, URINE 9:45 PM [facility] REPOSITORY Urine Culture ORGANISM 1: Proteus mirabilis Maben Count >100,000 Proteus mirabilis: REACTION Amoxacillin/Clavulanic Acid [...] >=320 R (NF) indicates non-formulary drug at [facility]. Approval by Infectious Disease Specialist required before non-formulary drugs may be ordered and/or dispensed. Performed By: #### M100.0650 #### [facility] [place], [address] CBC W/DIFF, AUTOMATED Collected: 11/22/2017 Status: F Source: [place] 5:35 AM [facility] REPOSITORY Order Comment: ROOM 170 [...] Lymph 1.72 Performed By: #### L100.0100 #### [facility] [address] [place], [place], [address] BASIC METABOLIC Collected: 11/22/2017 Status: F Source: [place] PROFILE (BMP) 5:35 AM [facility] REPOSITORY Order Comment: ROOM 170 [...] GAP 4 Performed By: #### L500.2500 #### [facility] [address] [place], [address] CBC W/DIFF, AUTOMATED Collected: 2017 Status: F Source: [place] 6:30 AM [facility] REPOSITORY Order Comment: 170 TYPE [...] Lymph 1.36 Performed By: #### L100.0100 #### [facility] [address] [place], [place], [address] BASIC METABOLIC Collected: 2017 Status: F Source: [place] PROFILE (BMP) 6:30 AM [facility] REPOSITORY Order Comment: 170 TYPE [...] GAP 5 Performed By: #### L500.2500 #### [facility] [address] [place], [place] [address]. [place], [address] CBC W/DIFF, AUTOMATED Collected: 11/08/2017 Status: F Source: [place] 6:15 AM [facility] REPOSITORY Order Comment: ROOM 170 [...] Lymph 1.51 Performed By: #### L100.0100 #### [facility] [address] [place], [address] BASIC METABOLIC Collected: 11/08/2017 Status: F Source: [place] PROFILE ([facility]) 6:15 AM [facility] REPOSITORY Order Comment: ROOM 170 [...] GAP 3 Performed By: #### L500.2500 #### [facility] [address] [facility] [place], [address] CBC W/DIFF, AUTOMATED Collected: 11/01/2017 Status: F Source: [place] 7:10 AM [facility] REPOSITORY Order Comment: RM:170 TYPE [...] Lymph 1.27 Performed By: #### L100.0100 #### [facility] [address] [place], [place], [address] BASIC METABOLIC Collected: 11/01/2017 Status: F Source: [place]NSIGN PROFILE ([facility]) 7:10 AM [facility] REPOSITORY Order Comment: RM:170 TYPE [...] 5 GAP Performed By: #### L500.2500 #### [facility] [address] [place], [place], [address] BASIC METABOLIC Collected: 10/24/2017 Status: F Source: [place] PROFILE ([facility]) 5:17 AM [facility] REPOSITORY Order Comment: ROOM 170 [...] GAP 9 Performed By: #### L500.2500 #### [facility] [place], [address] CBC W/DIFF, AUTOMATED Collected: 10/24/2017 Status: F Source: [place] 5:17 AM [facility] REPOSITORY Order Comment: ROOM 170 [...] Lymph 1.59 Performed By: #### L100.0100 #### [facility] [address] [place], [address] BASIC METABOLIC Collected: 10/19/2017 Status: F Source: [place] PROFILE (BMP) 5:40 AM [facility] REPOSITORY TYPE CODE TESTS RESULT [...] GAP 7 Performed By: #### L500.2500 #### [facility] [place] [place], [address] CBC W/DIFF, AUTOMATED Collected: 10/19/2017 Status: F Source: [place] 5:40 AM [facility] REPOSITORY TYPE CODE TESTS RESULT [...] Lymph 1.38 Performed By: #### L100.0100 #### [facility] [address] [place], [address] URINALYSIS, COMPLETE Collected: 10/13/2017 Status: F Source: [place] 12:00 AM [facility] REPOSITORY Order Comment: How was [...] URINE SEEN Performed By: #### L400.0001 #### [facility] [address] [place], [address] Observed: 10/13/2017 Status: F Source: [place] CULTURE, URINE 12:00 AM [facility] REPOSITORY Urine Culture There are no CLSI standards for interpretation of this Drug/Organism combination. ORGANISM 1: Enterococcus raffinosus Maben Count 25,000-50,000 Performed By: #### M100.0650 #### [facility] [address] [place], [address] CBC W/DIFF, AUTOMATED Collected: 10/10/2017 Status: F Source: [place] 5:35 AM [facility] REPOSITORY Order Comment: ROOM 170 [...] Lymph 1.79 Performed By: #### L100.0100 #### [facility] [address] [place], [place], [address] BASIC METABOLIC Collected: 10/10/2017 Status: F Source: [place] PROFILE (BMP) 5:35 AM [facility] REPOSITORY Order Comment: ROOM 170 [...] 9 Performed By: #### L500.2500, L501.9520 #### [facility] [address] [facility] [place], [place], [address] THYROID STIM HORMONE Collected: 10/10/2017 Status: F Source: [place] (TSH) 5:35 AM [facility] REPOSITORY Order Comment: ROOM 170 TYPE CODE TESTS RESULT OUT OF RANGE REFERENCE UNITS LAB L501.9520 0.358-3.74 uIU/mL High TSH 7.24 Performed By: #### L500.2500, L501.9520 #### [facility] [address] [place], [address] VITAMIN D,25 HYDROXY Collected: 10/10/2017 Status: F Source: [place] 5:35 AM [facility] REPOSITORY Order Comment: ROOM 170 [...] (>250 nmol/L) Performed By: #### L506.1000 #### [facility] [place], [address] CBC W/DIFF, AUTOMATED Collected: 10/07/2017 Status: F Source: [place] 4:29 PM [facility] REPOSITORY TYPE CODE TESTS RESULT [...] Lymph 0.65 Performed By: #### L100.0100 #### [facility] [address] 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 As far as her hypoglycemia, she was placed on a sliding scale insulin, and Lantus was discontinued. She had fair control of her blood sugar while here. She was discharged to detention in stable condition. For discharge I recommend [...] to continue wound care daily at the detention. Wound cultures show rare GP and GNR. 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 Code Visit Inpatient E AND M: [id number] Disch Hosp 10/06/17 1556 <Electronically signed by Steven NIX> Date Steven NIX 10/06/17 5691<Electronically signed by Santos Sousa MD> Cosigner Signature (if applicable): Date Santos Sousa MD CC: TECHNICAL OPERATOR-C Anyi Zamora; DINAH Holder; Santos Sousa MD Signed TRANSFER TO EXTENDED Observed: 10/06/2017 Status: F Source: [place] CARE 1:06 PM [facility] REPOSITORY [facility] Medical Records Department [address] [place] [address] Transfer to Extended Care MR#: [id number] Acct: [id number] Name: CHA CALIX Rep #: [id number] : 1945 71 From: Steven NIX PCP: MARILEE Mccain Status: ADM IN CHA CALIX (Patient) (Health Ins. Claim No.) (Day of Discharge to Facility) Certification of patient admission REQUIRED AT TIME OF ADMISSION. I CERTIFY THAT POST-HOSPITAL ECF SERVICES ARE REQUIRED TO BE GIVEN ON AN IN-PATIENT BASIS BECAUSE OF THE ABOVE NAMED PATIENT'S NEED FOR CUSTODIAL CARE ON A CONTINUING BASIS FOR THE [...] weeks 10/06/17 1158 <Electronically signed by Steven NXI> Date Steven NIX CC: MARILEE Zamora Signed BEDSIDE GLUCOSE Collected: 10/06/2017 Status: F Source: [place] 11:50 AM [facility] REPOSITORY TYPE CODE TESTS RESULT OUT OF REFERENCE UNITS RANGE LAB L501.080 70-110 mg/dL High BEDSIDE GLU 114 Result Comment: MANAGEMENT OF PATIENT CARE PER NURSING PROTOCOL Performed By: #### L501.080 #### [facility] Point of Care [address] [place] [address] CBC-COMPLETE BLOOD CNT Collected: 10/06/2017 Status: F Source: [place] NO DIFF 7:10 AM [facility] REPOSITORY TYPE CODE TESTS RESULT [...] MPV 10.0 Performed By: #### L100.0500 #### [facility] [facility] [address] [place], [address] BASIC METABOLIC Collected: 10/06/2017 Status: F Source: JOSE PROFILE (BMP) 7:10 AM [facility] REPOSITORY TYPE CODE TESTS RESULT [...] GAP 11 Performed By: #### L500.2500 #### [facility] [address] [place], [address] BEDSIDE GLUCOSE Collected: 10/06/2017 Status: F Source: JOSE 6:47 AM [facility] REPOSITORY TYPE CODE TESTS RESULT OUT OF REFERENCE UNITS RANGE LAB L501.080 70-110 mg/dL High BEDSIDE GLU 116 Result Comment: MANAGEMENT OF PATIENT CARE PER NURSING PROTOCOL Performed By: #### L501.080 #### [facility] Point of Care [address] [place] [address] MRSA WOUND DNA BY Collected: 10/06/2017 Status: F Source: JOSE PCR 3:00 AM [facility] REPOSITORY Order Comment: Comments: sacrum Specimen Source? sacral wound TYPE CODE TESTS RESULT OUT OF RANGE REFERENCE UNITS LAB L8200.1100 Negative Normal MRSA Negative RESULT LAB L8200.1150 Negative Normal SA RESULT NEGATIVE Performed By: #### L8200.1075 #### [facility] [address] [place], [address] BEDSIDE GLUCOSE Collected: 10/05/2017 Status: F Source: JOSE 9:48 PM [facility] REPOSITORY TYPE CODE TESTS RESULT OUT OF REFERENCE UNITS RANGE LAB L501.080 70-110 mg/dL High BEDSIDE GLU 118 Result Comment: MANAGEMENT OF PATIENT CARE PER NURSING PROTOCOL Performed By: #### L501.080 #### [facility] Point of Care [address] [place] [address] BEDSIDE GLUCOSE Collected: 10/05/2017 Status: F Source: JOSE 4:37 PM [facility] REPOSITORY TYPE CODE TESTS RESULT OUT OF REFERENCE UNITS RANGE LAB L501.080 70-110 mg/dL High BEDSIDE GLU 113 Result Comment: MANAGEMENT OF PATIENT CARE PER NURSING PROTOCOL Performed By: #### L501.080 #### [facility] [place] [address] Observed: 10/05/2017 Status: F Source: ENSIGN CULTURE, DEEP WOUND 11:55 AM [facility] REPOSITORY Gram Stain Gram Stain Rare Gram negative rods Rare Gram positive cocci 3+ Red Blood Cells No White Blood Cells Wound Culture #2 Organism unable to sustain growth for sensitivity testing. RESULTS CALLED TO [facility] [phone] 10/10/17 144 Kim Wolf. Copy of report sent to Infection Control Printer MS#[id number] 10/10/17 7065 LUCIANONNYVONNE. ORGANISM 1: Proteus mirabilis Amount Growth [...] >=320 R (NF) indicates non-formulary drug at [facility]. Approval by Infectious Disease Specialist required before non-formulary drugs may be ordered and/or dispensed. Vancomycin Resist. E. faecilis: REACTION Ampicillin $ 8 R Benzylpenicillin NF 1 R Gentamicin SYN-S S Linezolid $$$$ 2 S Tigecycline $$$$ 0.25 S Streptomycin $ SYN-S S Vancomycin $ >=32 R (NF) indicates non-formulary drug at [facility]. Approval by Infectious Disease Specialist required [...] 1 S (NF) indicates non-formulary drug at [facility]. Approval by Infectious Disease Specialist required before non-formulary drugs may be ordered and/or dispensed. * CLSI guidelines does not recommend testing of cephalosporins. This interpretation is deduced from Beta-lactam/penicillin results. Cult, Anaerobic No anaerobic bacteria isolated. Performed By: #### M100.1500 #### [facility] [address] [place], [address] BEDSIDE GLUCOSE Collected: 10/05/2017 Status: F Source: ENSIGN 11:40 AM [facility] REPOSITORY TYPE CODE TESTS RESULT OUT OF REFERENCE UNITS RANGE LAB L501.080 70-110 mg/dL High BEDSIDE GLU 153 Result Comment: MANAGEMENT OF PATIENT CARE PER NURSING PROTOCOL Performed By: #### L501.080 #### [facility] Point of Care [address] [place] [address] BEDSIDE GLUCOSE Collected: 10/05/2017 Status: F Source: ENSIGN 6:57 AM [facility] REPOSITORY TYPE CODE TESTS RESULT OUT OF RANGE REFERENCE UNITS LAB L501.080 70-110 mg/dL Normal BEDSIDE GLU 109 Result Comment: MANAGEMENT OF PATIENT CARE PER NURSING PROTOCOL Performed By: #### L501.080 #### [facility] Point of Care [address] [place] [address] CBC W/DIFF, AUTOMATED Collected: 10/05/2017 Status: F Source: ENSIGN 5:08 AM [facility] REPOSITORY TYPE CODE TESTS RESULT [...] Lymph 0.63 Performed By: #### L100.0100 #### [facility] [address] [place], [address] COMPREHENSIVE METABOLIC Collected: 10/05/2017 Status: F Source: [facility] 5:08 AM [facility] REPOSITORY TYPE CODE TESTS RESULT [...] GAP 11 Performed By: #### L500.4050 #### [facility] [address] [place], [address] BEDSIDE GLUCOSE Collected: 10/04/2017 Status: F Source: JOSE 10:09 PM [facility] REPOSITORY TYPE CODE TESTS RESULT OUT OF REFERENCE UNITS RANGE LAB L501.080 70-110 mg/dL High BEDSIDE GLU 142 Result Comment: MANAGEMENT OF PATIENT CARE PER NURSING PROTOCOL Performed By: #### L501.080 #### [facility] Point of Care [address] [place] [address] HISTORY AND PHYSICAL Observed: 10/04/2017 Status: F Source: ENSIGN EXAM 6:19 PM [facility] REPOSITORY [facility] Medical Records Department [address] [place] [address] History and Physical 10/04/17 1715 MR#: [id number] Acct: [id number] Name: CHA CALIX Rep #: [id number] : 1945 71 From: Harvey More DO PCP: MARILEE Mccain Status: ADM IN Location: [place] [id number] ADDENDUM by Harvey More DO on 10/04/17 at 1819 Code Visit Patient with a noted cephalexin allergy though has received Rocephin in the past. We will change antibiotics from meropenem. 10/04/17 181 <Electronically signed by Harvey More DO> Date Harvey More DO cc: TECHNICAL OPERATOR-C Anyi Zamora; Harvey More DO * Signed [...] hospice. Code Visit Inpatient E AND M: 45883 Init Hosp L3 Procedures: 86395 Advncd Care Plan 30 Min 10/04/17 1725 <Electronically signed by Harvey More DO> Date Harvey More DO [facility] Signature: Date (if applicable) CC: TECHNICAL OPERATOR-C Anyi Zamora; Harvey More DO Signed BEDSIDE GLUCOSE Collected: 10/04/2017 Status: F Source: JOSE 4:55 PM [facility] REPOSITORY TYPE CODE TESTS RESULT OUT OF REFERENCE UNITS RANGE LAB L501.080 70-110 mg/dL High BEDSIDE GLU 147 Result Comment: MANAGEMENT OF PATIENT CARE PER NURSING PROTOCOL Performed By: #### L501.080 #### [facility] Point of Care [address] [place], [place] [address] BEDSIDE GLUCOSE Collected: 10/04/2017 Status: F Source: JOSE 4:00 PM [facility] REPOSITORY TYPE CODE TESTS RESULT OUT OF REFERENCE UNITS RANGE LAB L501.080 70-110 mg/dL High BEDSIDE GLU 129 Result Comment: MANAGEMENT OF PATIENT CARE PER NURSING PROTOCOL Performed By: #### L501.080 #### [facility] Point of Care [address] [place] [address] EMERGENCY DEPARTMENT Observed: 10/04/2017 Status: F Source: ENSIGN SUMMARY 3:53 PM [facility] REPOSITORY [facility] Medical Records Department [address] [place] [address] Emergency Department Summary 10/04/17 1545 MR#: [id number] Acct: [id number] Name: CHA CALIX Rep #: [id number] : 1945 71 From: Mikey Warner MD [...] renal disease This note was generated with JDP Therapeuticsation software. It may contain incorrect words, spelling, [...] your Primary Care Provider. Call [facility] ([phone]) or report to the closest Emergency Room. Call 911 if necessary. 10/04/17 1553 <Electronically signed by Mikey Warner MD> Date Mikey Warner MD Cosigner Signature (If Indicated): Date CC: TECHNICAL OPERATOR-C Anyi Zamora BEDSIDE GLUCOSE Collected: 10/04/2017 Status: F Source: JOSE 3:06 PM [facility] REPOSITORY TYPE CODE TESTS RESULT OUT OF REFERENCE UNITS RANGE LAB L501.080 70-110 mg/dL Low BEDSIDE GLU 57 Result Comment: MANAGEMENT OF PATIENT CARE PER NURSING PROTOCOL Performed By: #### L501.080 #### [facility] [place] [address] CBC W/DIFF, AUTOMATED Collected: 10/04/2017 Status: F Source: JOSE 3:05 PM [facility] REPOSITORY Order Comment: REDRAW. PREVIOUS [...] Lymph 0.87 Performed By: #### L100.0100 #### [facility] [address] [place], [place], [address] BEDSIDE GLUCOSE Collected: 10/04/2017 Status: F Source: ENSIGN 2:31 PM [facility] REPOSITORY TYPE CODE TESTS RESULT OUT OF REFERENCE UNITS RANGE LAB L501.080 70-110 mg/dL Low alert BEDSIDE GLU 40 Result Comment: Orders Followed MANAGEMENT OF PATIENT CARE PER NURSING PROTOCOL Performed By: #### L501.080 #### [facility] Point of Care [address] [place] [address] COMPREHENSIVE METABOLIC Collected: 10/04/2017 Status: F [facility]30 PM [facility] REPOSITORY Order Comment: REDRAW. PREVIOUS [...] GAP 7 Performed By: #### L500.4050 #### [facility] [address] [place], [place], [address] URINALYSIS, COMPLETE Collected: 10/04/2017 Status: F Source: ENSIGN 2:30 PM [facility] REPOSITORY Order Comment: Has pt [...] URINE SEEN Performed By: #### L400.0001 #### [facility] [address] [place], [address] EMERGENCY DEPARTMENT Observed: 09/28/2017 Status: F Source: ENSIGN SUMMARY 11:36 PM [facility] REPOSITORY [facility] Medical Records Department [address] [place] [address] Emergency Department Summary 09/28/17 1608 MR#: [id number] Acct: [id number] Name: CHA CALIX Rep #: [id number] : 1945 71 From: Harvey Medrano DO [...] decubitus ulcer This note was generated with Popdeem dictation software. It may contain incorrect words, [...] your Primary Care Provider. Call [facility] ([phone]) or report to the closest Emergency Room. Call 911 if necessary. 09/28/17 2336 <Electronically signed by Harvey Medrano DO> Date Harvey Medrano DO Cosigner Signature (If Indicated): Date CC: No Primary Care Physician Observed: 09/28/2017 Status: F Source: JOSE CULTURE, URINE 4:08 PM [facility] REPOSITORY Urine Culture ORGANISM 1: Citrobacter youngae Maben Count >100,000 ORGANISM 2: Klebsiella pneumoniae sp pneum Maben Count >100,000 Citrobacter youngae: REACTION Amoxacillin/Clavulanic Acid $ 16 R Cefazolin $ >=64 R Cefepime $ <=1 S Ceftriaxone $ 8 S Ciprofloxacin $ 1 I Ertapenim $$$ <=0.5 S Gentamicin $ 8 I Imipenem *NF <=0.25 S Levofloxacin $ 4 I Nitrofurantoin $ <=16 S Tobramycin $ 8 I Trimethoprim/Sulfametho $ >=320 R (NF) indicates non-formulary drug at [facility]. Approval by Infectious Disease Specialist required [...] >=320 R (NF) indicates non-formulary drug at [facility]. Approval by Infectious Disease Specialist required before non-formulary drugs may be ordered and/or dispensed. Performed By: #### M100.0650 #### [facility] [address] [place], [address] URINALYSIS, COMPLETE Collected: 09/28/2017 Status: F Source: ENSIGN 4:05 PM [facility] REPOSITORY Order Comment: How was [...] Normal AMORPHOUS Performed By: #### L400.0001 #### [facility] [address] [place], [address] CBC W/DIFF, AUTOMATED Collected: 09/28/2017 Status: F Source: ENSIGN 3:55 PM [facility] REPOSITORY TYPE CODE TESTS RESULT [...] Lymph 0.91 Performed By: #### L100.0100 #### [facility] [address] [place], [address] COMPREHENSIVE METABOLIC Collected: 09/28/2017 Status: F Source: JOSE [facility] 3:55 PM [facility] REPOSITORY TYPE CODE TESTS RESULT [...] GAP 7 Performed By: #### L500.4050 #### [facility] [address] [facility] [place], [place], [address] URINALYSIS, COMPLETE Collected: 07/13/2017 Status: F Source: ENSIGN 4:15 PM [facility] REPOSITORY Order Comment: How was [...] URINE SEEN Performed By: #### L400.0001 #### [facility] [address] [facility] [place], [place], [address] ALLERGIES ALLERGIES DATE TYPE / CODE NAME / CODE REACTION SEVERITY SOURCE 10/04/2017 Drug Penicillins/ Rash Unknown [facility] Allergy/4160 [id number]([facility] [address]1505(SNOMED XNORM) Repository CT) 10/04/2017 Drug cephalexin/F Rash Unknown [place] [facility] Allergy/4160 [id number]([facility] 21046(SNOMED NORM) Repository CT) ENCOUNTERS ENCOUNTERS ADMIT/DISCHARGE ACCOUNT ADMITTING ENCOUNTER LOCATION SOURCE NUMBER CLASS 02/28/2018 [id number] Ambulatory [place] 1 [facility] ing:OLS.AVEC Repository 02/09/2018 [id number] Ambulatory [place] 8 [facility] ing:OLS.AVEC Repository 01/31/2018 [id number] Amb[place] [facility] ing:OLS.AVEC Repository 01/24/2018 [id number] Ambulatory [place] 4 [facility] ing:OLS.AVEC Repository 01/17/2018 [id number] Ambulatory [place] 5 [facility] ing:OLS.AVEC Repository 01/10/2018 [id number] Amb[place] 3 [facility] ing:OLS.AVEC Repository 01/03/2018 [id number] Ambulatory [place] 8 [facility] ing:OLS.AVEC Repository 12/27/2017 [id number] Ambulatory [place] 5 [facility] ing:OLS.AVEC Repository 12/20/2017 [id number] Ambulatory [place] 4 [facility] ing:OLS.AVEC Repository 12/14/2017 [id number] Ambulatory [place] 6 [facility] ing:OLS.AVEC Repository 12/12/2017 [id number] Ambulatory [place] 9 [facility] ing:OLS.AVEC Repository 12/06/2017 [id number] Ambulatory [place] 3 [facility] ing:OLS.AVEC Repository 11/29/2017 [id number] Ambulatory [place] 0 [facility] ing:OLS.AVEC Repository 11/24/2017 [id number] Ambulatory [place] 9 [facility] ing:OLS.AVEC Repository 11/22/2017 [id number] Ambulatory [place] 5 [facility] ing:OLS.AVEC Repository 2017 [id number] Ambulatory [place] 0 [facility] ing:OLS.AVED Repository 11/08/2017 [id number] Ambulatory [place] 0 [facility] Hospital ing:OLS.AVEB Repository 11/01/2017 [id number] Ambulatory [place] 7 [facility] Hospital ing:OLS.AVEB Repository 10/24/2017 [id number] Ambulatory [place] 2 [facility] Hospital ing:OLS.AVEC Repository 10/19/2017 [id number] Ambulatory [place] 7 [facility] Hospital ing:OLS.AVEB Repository 10/13/2017 [id number] Ambulatory [place] 7 [facility] Hospital ing:OLS.AVEB Repository 10/10/2017 [id number] Ambulatory [place] 1 [facility] Hospital ing:OLS.AVED Repository 10/07/2017 [id number] Ambulatory [place] 8 [facility] Hospital ing:OLS.AVEB Repository 10/04/2017/ [id number] Harvey More Inpatient [place] 8 7 Encounter [facility] ing:PCURoom: Repository [id number]: 1 10/04/2017 [id number] Harvey More Ambulatory BMSBuilding:B [place] 6 [facility] Repository 10/04/2017 [id number] Harvey More Ambulatory BMSBuilding:B [place] 4 [facility] Repository 10/04/2017 [id number] Harvey More Ambulatory BMSBuilding:B [place] 4 [facility] Repository 09/28/2017/ [id number] Emergency [place] 8 3 [facility] Hospital ing:ED Repository 07/13/2017 [id number] Ambulatory [place] 0 [facility] Hospital ing:LABSPEC Repository PAYERS PAYERS ENCOUNTER GUARANTOR PAYER SUBSCRIBER SOURCE 02/28/2018 CHA Tejeda Primary NOT GIVENUNK [place] [id number] E. Insurance:SELF PAY [facility] RDAVENUE Number: Effective Repository OF Date:2018-02-28 pio PELAYO 91624Qxu: () 02/09/2018 CHA A Primary CHA A [place] [id number] E. Insurance:[facility] BUTLERDOB: [facility]IN [facility] [id number] Number: Repository [place] [id number] [place], Date:5436-95-24XU [facility] 12641Kvj: [address] [place] [phone]: [phone] () [phone] 02/09/2018 Secondary NOT GIVENUNK [place] Insurance:SELF PAY [facility] Number: Effective Repository Date:2018-02-09 01/31/2018 CHA A Primary CHA A [place] [id number] E. Insurance:[facility] BUTLERDOB: [facility] *IN [facility] [id number] Valley Psychiatric Center Number: Repository OF [id number] [facility], Date:9384-84-54DJ [facility] [address]62[address]Msc: [address] [place] [address] ) [phone]: [phone] () [phone] 01/31/2018 Secondary NOT GIVENUNK [place] Insurance:SELF PAY [facility] Number: Effective Repository Date:2018-01-31 01/24/2018 CHA A Primary CHA A [place] [id number] E. Insurance:[facility] BUTLERDOB: [facility] *IN [facility] [id number] Valley Psychiatric Center Number: Repository [place] [id number] [facility], Date:4902-47-82KC [facility] [address]67[address]Lpf: [address] [place] [phone]: [phone]) () [phone] 01/24/2018 Secondary NOT GIVENUNK [place] Insurance:SELF PAY [facility] Number: Effective Repository Date:2018-01-24 01/17/2018 CHA A Primary CHA A [place] [id number] E. Insurance:[facility] BUTLERDOB: [facility] *IN [facility] [id number] Valley Psychiatric Center Number: Repository [place] [id number] [place], Date:6850-04-99BJ [facility] [address]76[address]Hou: [address] [place] [phone]: [phone] (HP) [phone] 01/17/2018 Secondary NOT GIVENUNK [place] Insurance:SELF PAY [facility] Number: Effective Repository Date:2018-01-17 01/10/2018 CHA A Primary CHA A [place] [id number] E. Insurance:[facility] BUTLERDOB: Community [place] *IN [facility] [id number] Valley Psychiatric Center Number: Repository OF [id number] [place], Date:9676-24-31PV [facility] [address]13[address]Mvi: [address] [place] [phone]: [phone]) (HP) [phone] 01/10/2018 Secondary NOT GIVENUNK [place] Insurance:SELF PAY [facility] Number: Effective Repository Date:2018-01-10 01/03/2018 CHA A Primary CHA A [place] [id number] E. Insurance:[facility] BUTLERDOB: Community [place] *IN [facility] [id number] Valley Psychiatric Center Number: Repository [place] [id number] [place], Date:1023-88-95JY [facility] 50903Bdk: [address] [place] [address] ) [phone]: [phone] (HP) [phone] 01/03/2018 Secondary NOT GIVENUNK [place] Insurance:SELF PAY [facility] Number: Effective Repository Date:2018-01-03 12/27/2017 CHA A Primary CHA A [place] [id number] E. Insurance:[facility] BUTLERDOB: Community [place] *IN [facility] [id number] Valley Psychiatric Center Number: Repository [place] [id number] [place], Date:5457-36-31LU [facility] 79466Eqj: [address] [place] [phone]: [phone]) () [phone] 12/27/2017 Secondary NOT GIVENUNK [place] Insurance:SELF PAY [facility] Number: Effective Repository Date:2017-12-27 12/20/2017 CHA A Primary NOT GIVENUNK [place] [id number] E. Insurance:SELF PAY [facility] Number: Effective Repository OF Date:2017-12-20 [facility] [place] [address]Osa: () 12/14/2017 CHA A Primary CHA A [place] [id number] E. Insurance:[facility] BUTLERDOB: [facility] *IN [facility] [id number] Valley Psychiatric Center Number: Repository [place] [id number] [place], Date:5946-66-29YL [facility] 34497Hdv: [address] [place] [phone]: [phone] () [phone] 12/14/2017 Secondary NOT GIVENUNK [place] Insurance:SELF PAY [facility] Number: Effective Repository Date:2017-12-14 12/12/2017 CHA A Primary CHA A [place] [id number] E. [facility] BUTLERDOB: [facility] *IN [facility] [id number] Valley Psychiatric Center Number: Repository OF [id number] [place], Date:4266-62-54DS [facility] 940[address]Rmy: [address] [place] [phone]: [phone]) () [phone] 12/12/2017 Secondary NOT GIVENUNK [place] Insurance:SELF PAY [facility] Number: Effective Repository Date:2017-12-12 12/06/2017 CHA A Primary CHA A [place] [id number] E. Insurance:[facility] BUTLERDOB: [facility] *IN [facility] [id number] Valley Psychiatric Center Number: Repository OF [id number] [place], Date:1383-13-72HL [facility] 54989Sjn: [address] [place] [phone]: [phone]) (HP) [phone] 12/06/2017 Secondary NOT GIVENUNK [place] Insurance:SELF PAY [facility] Number: Effective Repository Date:2017-12-06 11/29/2017 CHA A Primary CHA A [place] [id number] E. Insurance:[facility] BUTLERDOB: Community [place] *IN [facility] [id number] Valley Psychiatric Center Number: Repository OF [id number] [place], Date:6426-27-61SZ [facility] 46273Bmh: [address] [place] [phone]: [phone]) (HP) [phone] 11/29/2017 Secondary NOT GIVENUNK [place] Insurance:SELF PAY [facility] Number: Effective Repository Date:2017-11-29 11/24/2017 CHA A Primary CHA A [place] [id number] E. Insurance:[facility] BUTLERDOB: Community [place] *IN [facility] [id number] Valley Psychiatric Center Number: Repository [place] [id number] [place], Date:1765-36-12CX [facility] 90778Qdc: [address] [place] [phone]: [phone]) (HP) [phone] 11/24/2017 Secondary NOT GIVENUNK [place] Insurance:SELF PAY [facility] Number: Effective Repository Date:2017-11-24 11/22/2017 CHA A Primary CHA A [place] [id number] E. Insurance:[facility] BUTLERDOB: Community [place] *IN [facility] [id number] Valley Psychiatric Center Number: Repository OF [id number] [place], Date:0328-60-58TA [facility] [address]Oig: [address] [place] [address]WP: [phone]) (HP) [phone] 11/22/2017 Secondary NOT GIVENUNK [place] Insurance:SELF PAY [facility] Number: Effective Repository Date:2017-11-22 2017 CHA A Primary CHA A [place] [id number] E. Insurance:[facility] BUTLERDOB: [facility]IN [facility] [id number] Number: Repository OF [id number] [place], Date:3162-23-55GJ [facility] [address]Dli: [address] [place] [address]WP: [phone]) (HP) [phone] Secondary NOT GIVENUNK [place] Insurance:SELF PAY [facility] Number: Effective Repository Date:2017 11/08/2017 CHA A Primary CHA A [place] [id number] E. Insurance:[facility] BUTLERDOB: [facility] JUNIOR *IN [facility] [id number] Valley Psychiatric Center Number: Repository OF [id number] [facility], Date:4830-11-52TD [facility] 23048Wng: [address] [place] [address] ) [phone]: [phone]) () [phone] 11/08/2017 Secondary NOT GIVENUNK [place] Insurance:SELF PAY [facility] Number: Effective Repository Date:2017-11-08 11/01/2017 CHA A Primary CHA A [place] [id number] E. Insurance:[facility] BUTLERDOB: Leah PACHECO *IN [facility] [id number] Valley Psychiatric Center Number: Repository OF [id number] [place], Date:1226-17-59IZ [facility] [address]Mol: [address] [place] [address] ) [phone]: [phone]) (HP) [phone] 11/01/2017 Secondary NOT GIVENUNK [place] Insurance:SELF PAY [facility] Number: Effective Repository Date:2017-11-01 10/24/2017 CHA A Primary CHA A [place] [id number] E. Insurance:[facility] BUTLERDOB: [facility] *IN [facility] [id number] Valley Psychiatric Center Number: Repository OF [id number] [place], Date:0686-76-95ZF [facility] [address]Jcb: [address] [place] [address]WP: ([phone]) () [phone] 10/24/2017 Secondary NOT GIVENUNK [place] Insurance:SELF PAY [facility] Number: Effective Repository Date:2017-10-24 10/19/2017 CHA A Primary CHA A [place] [id number] E. Insurance:[facility] BUTLERDOB: [facility] *IN [facility] [id number] Valley Psychiatric Center Number: Repository OF [id number] [place], Date:1183-43-52WT [facility] 94256Kei: [address] [place] [address] ) [phone]: [phone]) () [phone] 10/19/2017 Secondary NOT GIVENUNK [place] Insurance:SELF PAY [facility] Number: Effective Repository Date:2017-10-19 10/13/2017 CHA A Primary CHA A [place] [id number] E. Insurance:[facility] BUTLERDOB: [facility] JUNIOR *IN [facility] [id number] Valley Psychiatric Center Number: Repository [place] [id number] [place], Date:6491-32-67ZA [facility] [address]Uhu: [address] [place] [phone]: [phone]) () [phone] 10/13/2017 Secondary NOT GIVENUNK [place] Insurance:SELF PAY [facility] Number: Effective Repository Date:2017-10-13 10/10/2017 CHA A Primary CHA A [place] [id number] E. Insurance:[facility] BUTLERDOB: [facility] *IN [facility] [id number] Valley Psychiatric Center Number: Repository [place] [id number] [place], Date:4965-50-42HR [facility] [address]Vod: [address] [place] [phone]: [phone]) (IM) [phone] 10/10/2017 Secondary NOT GIVENUNK [place] Insurance:SELF PAY [facility] Number: Effective Repository Date:2017-10-10 10/07/2017 CHA A Primary CHA A [place] [id number] [place] Insurance:[facility] [place]DOB[place] [facility] [id number] [facility] 12914Sbq: (904) Number: Repository [phone] () [id number] Date:1923-98-11YX [address] [address]GC: 10/07/2017 Secondary NOT GIVENUNK [place] Insurance:SELF PAY [facility] Number: Effective Repository Date:2017-10-07 10/04/2017 CHA A Primary CHA A [place] [id number] [place] Insurance:[facility] [place]ERDOB: [place] [facility] [id number] [facility] [address]90[address]Nal: (330) Number: Repository [phone] () [id number] Date:4170-87-62LI [address] [address]BX: 10/04/2017 Secondary NOT GIVENUNK [place] Insurance:SELF PAY [facility] Number: Effective Repository Date:2017-10-04 10/04/2017 CHA A Primary CHA A [place] [id number] [place] Insurance:[facility] BUTLERDOB: [place] [facility] [id number] [facility] [address]138Tku: (330) Number: Repository [phone] () [id number] Date:6387-97-46YR [address] [address]NG: 10/04/2017 Secondary NOT GIVENUNK [place] Insurance:SELF PAY [facility] Number: Effective Repository Date:2017-10-04 10/04/2017 CHA A Primary CHA A [place] [id number] [place] Insurance:[facility] BUTLERDOB: [place] [facility] [id number] Hospital [address]902Erj: (330) Number: Repository [phone] () [id number] Date:7101-02-81VU[address] [address]KF: 10/04/2017 Secondary NOT GIVENUNK [place] Insurance:SELF PAY [facility] Number: Effective Repository Date:2017-10-04 10/04/2017 CHA A Primary CHA A [place] [id number] [place] Insurance:[facility] BUTLERDOB: [place] [facility] [id number] [facility] [address]Xfc: (330) Number: Repository [phone] () [id number] Date:0967-47-99QP [address] [address]KJ: 10/04/2017 Secondary NOT GIVENUNK [place] Insurance:SELF PAY [facility] Number: Effective Repository Date:2017-10-04 09/28/2017 CHA A Primary CHA A [place] [id number] [place] Insurance:[facility] BUTLERDOB: [place] [facility] [id number] [address]Lwj: (330) Number: Repository [phone] () [id number] Date:8680-01-66JD[address] [address]CA: 09/28/2017 Secondary NOT GIVENUNK [place] Insurance:SELF PAY [facility] Number: Effective Repository Date:2017-09-28 07/13/2017 CHA A Primary CHA A [place] [id number] [place] Insurance:[facility] BUTLERDOB: [place] [facility] [id number] Hospital [address]Xsf: (330) Number: Repository [phone] () [id number] Date:6923-84-46[address] [place] [address]UV: 07/13/2017 Secondary NOT GIVENUNK [place] Insurance:SELF PAY [facility]: Effective Repository Date:2017-07-13
== END ==
LOC: OLS.AVEC 05:00
PROVIDERS: Visit Provider Family Medicine
DX: E03.9 Hypothyroidism, unspecified (principal)
CPT/HCPCS: 36415; 80048; 85025

== ENCOUNTER → 2018-02-09 04:00 | Outpatient (REF) | payer MEDICARE, SELFPAY ==
[2018-02-09 07:42] LABS: Hemoglobin A1c 5.6 % (4.2-6.3)
[2018-02-09 07:45] LABS: ALB/GLOB Ratio 0.5 RATIO (0.9-2.4); AST(SGOT) 17 U/L (15-37); Alanine Aminotransfer ALT/SGPT 14 U/L (13-56); Albumin, Serum 2.3 g/dL (3.2-5.0); Alkaline Phosphatase 129 U/L (45-117); Anion Gap 6 (5-15); BUN 31 mg/dL (7-18); BUN/Creat Ratio 21.7 RATIO (10-20); Calcium,Total 8.2 mg/dL (8.5-10.1); Chloride 103 mmol/L (98-107); Creatinine, Serum 1.43 mg/dL (0.55-1.02); EST Glomerular Filtration Rate 38 mL/min (>60); Est Glom Filt Rate - Afr Amer 46 mL/min (>60); Globulin 4.2 g/dL (2.2-4.2); Glucose 105 mg/dL (74-106); Protein, Total 6.5 g/dL (6.4-8.2); Sodium Level 141 mmol/L (136-145); Thyroid Stim Hormone (TSH) 1.62 uIU/mL (0.358-3.74)
== END ==
LOC: OLS.AVEC 04:00
PROVIDERS: Visit Provider Family Medicine
DX: Z00.00 Encounter for general adult medical examination without abnormal findings (principal)
CPT/HCPCS: 36415; 80053; 83036; 84443

== ENCOUNTER → 2018-02-28 05:00 | Outpatient (REF) | payer MEDICARE, SELFPAY ==
[2018-02-28 08:21] LABS: Absolute Lymphocyte Count 1.49 X10^3/ul (0.83-4.51); Absolute Neutrophil Count 4.4 X10^3/uL (2.0-7.7); Basophil# 0.01 X10^3/uL; Basophil% 0.2 % (0-1); Eosinophil# 0.22 X10^3/uL; Eosinophils% 3.4 % (0-5); Hematocrit 36.8 % (37-47); Hemoglobin 10.9 g/dl (12.0-15.0); Lymphocyte # 1.49 X10^3/ul (4.0); Lymphocyte % 22.9 % (19-41); Mean Corp Hgb Conc 29.6 g/gl (32-36); Mean Corpuscular Volume 94.6 fL (81-99); Mean Platelet Vol. 11.1 fl (6.2-12.0); Monocyte# 0.39 X10^3/uL; Neutrophil # 4.38 X10^3/uL (2.7-7.7); Neutrophil % 67.3 % (47-70); Platelet Count 151 K/mm3 (150-450); RBC Distribution Width CV 14.4 % (11.6-14.6); RBC Distribution Width SD 48.9 fl (35.1-43.9); Red Blood Count 3.89 M/mm3 (4.2-5.4); White Blood Count 6.5 K/mm3 (4.4-11.0)
[2018-02-28 08:22] LABS: POSITIVE COUNT NO; POSITIVE DIFFERENTIAL NO; POSITIVE MORPHOLOGY NO
[2018-02-28 08:26] LABS: Anion Gap 5 (5-15); BUN 33 mg/dL (7-18); BUN/Creat Ratio 22.1 RATIO (10-20); Calcium,Total 7.9 mg/dL (8.5-10.1); Chloride 106 mmol/L (98-107); Creatinine, Serum 1.49 mg/dL (0.55-1.02); EST Glomerular Filtration Rate 36 mL/min (>60); Est Glom Filt Rate - Afr Amer 44 mL/min (>60); Glucose 99 mg/dL (74-106); Potassium 3.7 mmol/L (3.5-5.1); Sodium Level 142 mmol/L (136-145)
== END ==
LOC: OLS.AVEC 05:00
PROVIDERS: Visit Provider Family Medicine
DX: E11.9 Type 2 diabetes mellitus without complications (principal)
CPT/HCPCS: 36415; 80048; 85025

== ENCOUNTER → 2018-03-31 05:00 | Outpatient (REF) | payer MEDICARE, SELFPAY ==
[2018-03-31 08:17] LABS: Absolute Lymphocyte Count 1.49 X10^3/ul (0.83-4.51); Absolute Neutrophil Count 4.7 X10^3/uL (2.0-7.7); Basophil# 0.01 X10^3/uL; Basophil% 0.1 % (0-1); Eosinophil# 0.27 X10^3/uL; Eosinophils% 3.9 % (0-5); Hematocrit 36.7 % (37-47); Hemoglobin 10.9 g/dl (12.0-15.0); Lymphocyte # 1.49 X10^3/ul (4.0); Lymphocyte % 21.3 % (19-41); Mean Corp Hgb Conc 29.7 g/gl (32-36); Mean Corpuscular Hgb 27.8 pg (27.0-32.0); Mean Corpuscular Volume 93.6 fL (81-99); Mean Platelet Vol. 10.7 fl (6.2-12.0); Monocyte# 0.49 X10^3/uL; Neutrophil # 4.71 X10^3/uL (2.7-7.7); Neutrophil % 67.4 % (47-70); Platelet Count 126 K/mm3 (150-450); RBC Distribution Width CV 14.7 % (11.6-14.6); RBC Distribution Width SD 49.9 fl (35.1-43.9); Red Blood Count 3.92 M/mm3 (4.2-5.4)
[2018-03-31 08:21] LABS: Anion Gap 3 (5-15); BUN 31 mg/dL (7-18); BUN/Creat Ratio 16.2 RATIO (10-20); Chloride 105 mmol/L (98-107); Creatinine, Serum 1.91 mg/dL (0.55-1.02); EST Glomerular Filtration Rate 27 mL/min (>60); Est Glom Filt Rate - Afr Amer 33 mL/min (>60); Glucose 122 mg/dL (74-106); Potassium 3.9 mmol/L (3.5-5.1); Sodium Level 140 mmol/L (136-145)
[2018-03-31 08:24] LABS: POSITIVE COUNT NO; POSITIVE DIFFERENTIAL NO; POSITIVE MORPHOLOGY NO
== END ==
LOC: OLS.AVEB 05:00
PROVIDERS: Visit Provider Family Medicine
DX: D64.9 Anemia, unspecified (principal); E11.9 Type 2 diabetes mellitus without complications; L89.44 Pressure ulcer of contiguous site of back, buttock and hip, stage 4
CPT/HCPCS: 36415; 80048; 85025

== ENCOUNTER → 2018-04-10 04:00 | Outpatient (REF) | payer MEDICARE, SELFPAY ==
[2018-04-10 09:35] LABS: Hemoglobin A1c 5.6 % (4.2-6.3)
[2018-04-10 09:38] LABS: ALB/GLOB Ratio 0.5 RATIO (0.9-2.4); AST(SGOT) 23 U/L (15-37); Alanine Aminotransfer ALT/SGPT 24 U/L (13-56); Albumin, Serum 2.3 g/dL (3.2-5.0); Alkaline Phosphatase 145 U/L (45-117); Anion Gap 9 (5-15); BUN 28 mg/dL (7-18); BUN/Creat Ratio 14.8 RATIO (10-20); Chloride 106 mmol/L (98-107); Creatinine, Serum 1.89 mg/dL (0.55-1.02); EST Glomerular Filtration Rate 28 mL/min (>60); Est Glom Filt Rate - Afr Amer 34 mL/min (>60); Globulin 4.2 g/dL (2.2-4.2); Glucose 154 mg/dL (74-106); Potassium 4.5 mmol/L (3.5-5.1); Protein, Total 6.5 g/dL (6.4-8.2); Sodium Level 144 mmol/L (136-145); Thyroid Stim Hormone (TSH) 0.51 uIU/mL (0.358-3.74)
== END ==
LOC: OLS.AVEC 04:00
PROVIDERS: Visit Provider Family Medicine
DX: D64.9 Anemia, unspecified (principal); N39.0 Urinary tract infection, site not specified
CPT/HCPCS: 36415; 80053; 83036; 84443

== ENCOUNTER → 2018-04-28 12:40 | Outpatient (REF) | payer MEDICARE, SELFPAY ==
[2018-04-28 14:24] LABS: Absolute Neutrophil Count 4.2 X10^3/uL (2.0-7.7); Basophil# 0.01 X10^3/uL; Basophil% 0.2 % (0-1); Eosinophil# 0.16 X10^3/uL; Eosinophils% 2.7 % (0-5); Hematocrit 38.2 % (37-47); Hemoglobin 11.5 g/dl (12.0-15.0); Lymphocyte % 22.3 % (19-41); Mean Corp Hgb Conc 30.1 g/gl (32-36); Mean Corpuscular Volume 92.9 fL (81-99); Mean Platelet Vol. 11.4 fl (6.2-12.0); Monocyte% 3.4 % (0-10); Neutrophil # 4.15 X10^3/uL (2.7-7.7); Neutrophil % 71.4 % (47-70); POSITIVE COUNT NO; POSITIVE DIFFERENTIAL NO; POSITIVE MORPHOLOGY NO; Platelet Count 121 K/mm3 (150-450); RBC Distribution Width CV 14.7 % (11.6-14.6); RBC Distribution Width SD 49.7 fl (35.1-43.9); Red Blood Count 4.11 M/mm3 (4.2-5.4); White Blood Count 5.8 K/mm3 (4.4-11.0)
[2018-04-28 14:50] LABS: Anion Gap 6 (5-15); BUN 27 mg/dL (7-18); BUN/Creat Ratio 16.5 RATIO (10-20); Calcium,Total 7.7 mg/dL (8.5-10.1); Chloride 104 mmol/L (98-107); Creatinine, Serum 1.64 mg/dL (0.55-1.02); EST Glomerular Filtration Rate 33 mL/min (>60); Est Glom Filt Rate - Afr Amer 39 mL/min (>60); Glucose 144 mg/dL (74-106); Potassium 2.9 mmol/L (3.5-5.1); Sodium Level 142 mmol/L (136-145)
== END ==
LOC: OLS.AVEB 12:40
PROVIDERS: Visit Provider Family Medicine
DX: E64.9 Sequelae of unspecified nutritional deficiency (principal); E11.9 Type 2 diabetes mellitus without complications; E78.5 Hyperlipidemia, unspecified
CPT/HCPCS: 36415; 80048; 85025

== ENCOUNTER → 2018-05-27 12:00 | Outpatient (REF) | payer MEDICARE, SELFPAY | LOC: OLS.AVEB 12:00 | PROVIDERS: Visit Provider Family Medicine | DX: N39.0 Urinary tract infection, site not specified (principal) | CPT/HCPCS: 87077; 87086; 87088; 87186 ==

== ENCOUNTER → 2018-06-14 19:00 | Outpatient (REF) | payer MEDICARE, SELFPAY | LOC: OLS.AVEC 19:00 | PROVIDERS: Visit Provider Family Medicine | DX: R69 Illness, unspecified (principal) | CPT/HCPCS: 87493; 87506 ==

== ENCOUNTER → 2018-06-28 | Outpatient (REF) | payer MEDICARE, SELFPAY ==
[2018-06-28 07:50] LABS: Absolute Lymphocyte Count 1.55 X10^3/ul (0.83-4.51); Absolute Neutrophil Count 3.9 X10^3/uL (2.0-7.7); Basophil# 0.01 X10^3/uL; Basophil% 0.2 % (0-1); Eosinophil# 0.25 X10^3/uL; Eosinophils% 4.1 % (0-5); Hemoglobin 12.1 g/dl (12.0-15.0); Lymphocyte # 1.55 X10^3/ul (4.0); Lymphocyte % 25.3 % (19-41); Mean Corpuscular Hgb 28.3 pg (27.0-32.0); Mean Corpuscular Volume 91.3 fL (81-99); Monocyte# 0.41 X10^3/uL; Monocyte% 6.7 % (0-10); Neutrophil % 63.5 % (47-70); Platelet Count 100 K/mm3 (150-450); RBC Distribution Width CV 14.3 % (11.6-14.6); RBC Distribution Width SD 47.2 fl (35.1-43.9); Red Blood Count 4.27 M/mm3 (4.2-5.4); White Blood Count 6.1 K/mm3 (4.4-11.0)
[2018-06-28 07:55] LABS: POSITIVE COUNT NO; POSITIVE DIFFERENTIAL NO; POSITIVE MORPHOLOGY NO
[2018-06-28 07:57] LABS: Anion Gap 4 (5-15); BUN 40 mg/dL (7-18); BUN/Creat Ratio 23.5 RATIO (10-20); Calcium,Total 8.3 mg/dL (8.5-10.1); Chloride 105 mmol/L (98-107); EST Glomerular Filtration Rate 31 mL/min (>60); Est Glom Filt Rate - Afr Amer 38 mL/min (>60); Glucose 106 mg/dL (74-106); Potassium 4.4 mmol/L (3.5-5.1); Sodium Level 143 mmol/L (136-145)
== END | disposition home or self-care (01) ==
LOC: OLS.AVEC 06:45
PROVIDERS: Visit Provider Family Medicine
DX: E11.9 Type 2 diabetes mellitus without complications (principal); E78.5 Hyperlipidemia, unspecified; E03.9 Hypothyroidism, unspecified
CPT/HCPCS: 36415; 80048; 85025